=== PATIENT | male | born 1945 | race Caucasian/White ===

== ENCOUNTER 2017-03-02 10:48 | Outpatient (CLI) | payer MEDICARE ==
[~2017-03-02] VITALS: Ht 175.3 cm; Wt 89.4 kg
[~2017-03-02 10:48] MED LIST: APIX5TAB PO; ASCO500T20 PO; ASP81TEC PO; ATOR40TA PO; ATOR80TA PO; CHOL200018 PO; CHOLESTEROL MED PO; CLOP75TA PO; CYAN10007 PO; DRON400T2 PO; ENAL2.5T PO; ENAL5TAB PO; ENLP10T PO; HC A30CR RC; HYDR-3816 PO; LIDO15CR6 TP; LOSA100T7 PO; LOVA20TA2 PO; LYSI500T13 PO; MULT1TAB5 PO; OMG1KC PO; PNT40TEC PO; PRAS10TA6 PO; atorvastatin; benicar
[2017-03-02 11:18] VITALS: BP 148/78
== END 2017-03-02 11:35 | disposition home or self-care (01) ==
LOC: PREOP 10:48
PROVIDERS: ATTEND Orthopaedic Surgery
DX: Z01.818 Encounter for other preprocedural examination (principal); Z11.2 Encounter for screening for other bacterial diseases; M23.200 Derangement of unspecified lateral meniscus due to old tear or injury, right knee
CPT/HCPCS: 87081

== ENCOUNTER 2017-03-07 09:42 | Day surgery (SDC) | payer MEDICARE ==
--- NOTE | 2017-03-01 06:31 | HISTORY AND PHYSICAL ---
DATE OF SERVICE: This will be for outpatient surgery on 03/07/2017 for right knee arthroscopy. HISTORY OF PRESENT ILLNESS: The patient is a 72-year-old gentleman with complaints of right knee pain. He reports swelling on the medial aspect of his knee with associated pain. He reports difficulty with arising from a seated position. He reports pain with twisting and kneeling. He reports this has been progressive in nature. REVIEW OF SYSTEMS: No chest pain, no shortness of breath. No dysuria. PAST MEDICAL HISTORY: Hypertension, heart disease, atrial fibrillation, prostate cancer. PAST SURGICAL HISTORY: Coronary stent, left carpal tunnel, brow lift, cataract excision. FAMILY HISTORY: Noncontributory. PRIMARY CARE PHYSICIAN: Dr. Damon. MEDICATIONS: Lipitor, enalapril, amlodipine, aspirin, losartan, fish oil, vitamin B12, vitamin D, hydrocodone, Bactrim. ALLERGIES: To LIDOCAINE and MSG. SOCIAL HISTORY: The patient denies alcohol and tobacco use. PHYSICAL EXAMINATION: GENERAL: The patient is well developed, well nourished, no acute distress. HEENT: Normocephalic, atraumatic. Pupils were equal, round, reactive to light. Oropharynx is clear. NECK: Supple. No lymphadenopathy. LUNGS: Clear to auscultation bilaterally. HEART: Regular rate and rhythm. ABDOMEN: Soft, nontender, nondistended. EXTREMITIES: The right knee demonstrates a moderate effusion. He is markedly tender along his medial joint line. Has pain kneeling with Marie's. He has a slight effusion. Range of motion is 0/0/135. He is ligamentously stable in all planes. He ambulates with an antalgic gait. IMPRESSION: Right knee medial meniscal tear. PLAN: Right knee arthroscopy, partial meniscectomy. The risks, benefits, options, and ramifications and recovery were discussed at length with the patient. He understands, wished to proceed. Job ID: [id number] DocumentID: [id number] Dictated Date: 02/27/2017 16:17:25 Social Sciences Research Scientist Date: 02/27/2017 16:46:38 Dictated By: CHAYA WOODSON MD
[~2017-03-07] VITALS: Ht 175.3 cm; Wt 89.4 kg
[2017-03-07] MEDS ORDERED: ceFAZolin 1 GM/NS 50 ML IVPB IV ONE ×2 (10:00)
[2017-03-07] MEDS ORDERED: CATHETER FLUSH 10 ML SYR IV PRN (10:00)
[2017-03-07] MEDS ORDERED: morphine PF (DURAMORPH) 10 MG/10 ML AMP ONE (10:02)
[2017-03-07] MEDS ORDERED: BUPIVACAINE 0.25% 30 ML (SENSORCAINE) VIAL ONE (10:02)
--- NOTE | 2017-03-07 10:13 | Progress Note-Pre Operative ---
Pre-Operative Progress Note H&P Reviewed The H&P was reviewed, patient examined and no changes noted. 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
--- NOTE | 2017-03-07 10:15 | Progress Note-Post Operative ---
Post-Operative Progess Note Surgeon (s)/Concrete Layer (s) Surgeon CHAYA WOODSON MD Concrete Layer: Hao Cameron Pre-Operative Diagnosis right knee medial meniscal tear and chondromalacia Post-Operative Diagnosis right knee medial and lateral meniscal tears and chondromalacia of the medial and lateral tibial plateaus and patella Procedure & Operative Findings Date of Procedure 03/07/17 Procedure Performed/Findings right knee arthroscopic partial medial and lateral meniscectomies and chondroplasty of the medial and lateral tibial plateaus and patella Anesthesia Type GETA Estimated Blood Loss Estimated blood loss (mL): minimal Specimens/Packing Specimens Removed none Packing: none CHAYA WOODSON MD Mar 07, 2017 10:15
[2017-03-07] MEDS ORDERED: LACTATED RINGERS 1,000 ML IV PRN ×2 (10:18→10:40)
[2017-03-07] MEDS ORDERED: SEVOFLURANE (ULTANE) 15 ML INHAL SOLN ONE ×2 (10:25→11:43)
[2017-03-07] MEDS ORDERED: HURRICAINE EXT TUBE (BENZOCAINE) ONE (10:25)
[2017-03-07] MEDS ORDERED: proPOfol 200 MG/20 ML (DIPRIVAN) VIAL IV ONE (10:25)
[2017-03-07] MEDS ORDERED: DEXAMETHASONE PF 10 MG/ML (DECADRON) VIAL ONE (10:25)
[2017-03-07] MEDS ORDERED: LACTATED RINGERS 1,000 ML IV ONE (10:25)
[2017-03-07] MEDS ORDERED: LIDOCAINE PF 2% 5 ML (XYLOCAINE) VIAL ONE (10:25)
[2017-03-07] MEDS ORDERED: fentaNYL INJECTION 100 MCG/2 ML AMP ONE (10:26)
[2017-03-07] MEDS ORDERED: MIDAZOLAM 2 MG/2 ML (VERSED) VIAL ONE (10:26)
[2017-03-07] MEDS ORDERED: FAMOTIDINE 20MG/2ML IV (PEPCID) ONE (10:27)
[2017-03-07] MEDS ORDERED: ATRACURIUM 50 MG/5 ML (TRACRIUM) IV ONE (10:27)
[2017-03-07 10:29] VITALS: BP 179/87
[2017-03-07] MEDS ORDERED: FAMOTIDINE 20MG/2ML IV (PEPCID) IV ONE (10:45)
[2017-03-07] MEDS ORDERED: HYDROcodone/APAP 7.5 MG/325 MG (LORTAB, LORCET PLUS) TABLET PO PRN (11:00)
[2017-03-07] MEDS ORDERED: morphine INJ 10 MG/ML 1ML (SYR OR VIAL) IVP PRN (12:00)
[2017-03-07 12:45] VITALS: BP 175/106
[2017-03-07] MEDS ORDERED: HYDR-3816 PO (13:08)
[2017-03-07 13:15] VITALS: BP 179/86
--- NOTE | 2017-03-07 13:42 | Physical Therapy Ortho Eval ---
PT Orthopedic Evaluation Type of Surgery Knee Scope RLE Prior Level of Function Current Living Status: Spouse Established Durable Medical Eq: Crutches Subjective Subjective Patient in bed pre tx, agrees to PT, has 2/10 pain, states that he has had this before and is familiar with his crutches. Entry Into Home: Stairs With Railing Steps Into Home: 2 Objective Objective right knee flexion 90 degrees, extension +3 degrees Motor Control Motor Control: Motor Control WNL Strength NT Transfer Transfers (B, C, W/C) (FIM): 4 Gait Gait Assistive Device: Crutches Weight Bearing Restriction: Weight Bearing/Tolerated Location Restriction: R LE Gait (FIM): 4 Distance: 150' Gait Level of Assist: 4 Summary/Comments Patient unsteady immediately after standing, did not follow directions on how to use his crutches and had to be reminded to slow down and put weight though his right leg. Patient also went up and down 1 step using his crutches with CGA. Treatment Rendered Treatment: Therapeutic Exercises, Gait Train, Step Train Exercise Instruction: Quad Sets, Heel Slides, Ankle Pumps Assessment/Goals Goal Time Frame: 1 Visit Plan Treatment Plan: Discharge PT/Family Agrees to Plan: Yes Time Time In: 1315 Time Out: 1335 Total Billed Treatment Time: 20 Billed Treatment Time 1 visit EVL 20' PT/OT Therapy GCodes Therapy Functional Limitation: Physical Therapy Test(s)/Tool used to determine: Level of Assistance Scale Functional Limitation-Current Charge Code: MOBCUR Modifier: CI Functional Limitation-Goal Charge Code: MOBGOAL Modifier: CI Functional Limitation-D/C Charge Codes: MOBDC Modifier: CI ARUN PASCUAL PT Mar 07, 2017 13:41
[2017-03-07 13:45] VITALS: BP 176/92
--- NOTE | 2017-03-07 15:50 | OPERATIVE REPORT ---
DATE OF SERVICE: 03/07/2017 PREOPERATIVE DIAGNOSES: 1. Right knee medial meniscal tear. 2. Right knee chondromalacia of the patella. POSTOPERATIVE DIAGNOSES: 1. Right knee medial meniscal tear. 2. Right knee chondromalacia of the patella. 3. Right knee lateral meniscal tear. 4. Right knee chondromalacia of the medial tibial plateau. 5. Right knee chondromalacia of the lateral tibial plateau. PROCEDURES: 1. Right knee arthroscopic partial medial meniscectomy. 2. Right knee arthroscopic partial lateral meniscectomy. 3. Right knee arthroscopic chondroplasty of the medial tibial plateau. 4. Right knee arthroscopic chondroplasty of the lateral tibial plateau. 5. Right knee arthroscopic chondroplasty of the patella. SURGEON: Pietro Woodson MD CERTIFIED OPTICIAN: Hao Hair, who assisted throughout the procedure and closed the incisions. ANESTHESIA: General endotracheal by Dr. Louis. TOURNIQUET TIME: Not applicable. ESTIMATED BLOOD LOSS: Minimal. DRAINS: None. COMPLICATIONS: None. POSTOPERATIVE PLAN: Routine arthroscopy protocol. The patient was transported to the recovery room awake and in stable condition. STATEMENT OF ORAL CONSENT: The patient is a 72-year-old gentleman with complaints of right medial and anterior knee pain. He was tender along his medial joint line and had pain medially with Marie's. He had patellofemoral crepitus noted as well with large effusion and due to functional impairment and failure to improve with conservative measures, the patient would like to proceed with surgical intervention. Examination under anesthesia revealed range of motion of 0/0/130. Negative Gucci. Negative anterior and posterior drawer. No varus or valgus laxity and negative pivot shift. ARTHROSCOPIC FINDINGS: The patella demonstrated grade 2 chondral flap centrally in a 10 x 10 area. The trochlea demonstrated no gross chondral abnormalities. The medial and lateral gutters were clear. The medial compartment demonstrated grade 4 chondral loss in a 3 x 3 area at the 3 o'clock position. There was a complex degenerative tear of the posterior horn of the medial meniscus involving approximately one-half of the posterior horn. In addition, there were grade 2 to 3 chondral flaps over the central portion of the tibial plateau in a 10 x 10 area. The ACL and PCL were intact. The lateral compartment demonstrated a radial tear of the posterior horn/body junction involving approximately 20% of the junction. In addition, there were grade 2 chondral flaps over the central portion of the tibial plateau in a 10 x 10 area. PROCEDURE IN DETAIL: After risks and benefits of procedure were discussed and questions were answered, an informed consent was signed and placed on the chart. The patient was then transported to the operating room. After adequate levels of general endotracheal anesthetic were obtained, a timeout was called confirming the operative site. An examination under anesthesia was performed with the above findings noted. The right lower extremity was prepped and draped in the usual sterile fashion. Then, 60 mL of fluid was used to insufflate the joint and a standard inferolateral portal was placed through arthroscope and under direct visualization, an inferomedial portal was created. The menisci and cruciates were carefully probed with the above findings noted. The unstable chondral flaps on the patella were debrided with a shaver back to stable edges. The scope was then redirected into the lateral compartment where the unstable chondral flaps and the lateral tibial plateau were debrided with a shaver back to a stable edge and the lateral meniscus tear was debrided with a shave back to a stable edge. This was carefully probed with no further tearing or instability noted. The scope was then redirected into the medial compartment where the unstable chondral flaps on the medial tibial plateau were debrided with a shaver back to a stable edge and the posterior horn of the medial meniscus was debrided with the body and the shaver removing approximately one-half of the posterior horn. This was carefully probed with no further tearing or instability noted. The knee was copiously irrigated and the portal sites were closed with 4-0 nylon in subcuticular fashion. The knee was injected with Duramorph. The portal sites were infiltrated with plain Marcaine. A soft dressing was applied, and the patient was transferred to the recovery room awake and in stable condition. Job ID: [id number] DocumentID: [id number] Dictated Date: 03/07/2017 11:51:23 Expressive Music Therapist Date: 03/07/2017 13:33:55 Dictated By: PIETRO WOODSON MD
== END 2017-03-07 14:08 | disposition home or self-care (01) ==
LOC: SDC 09:42
PROVIDERS: ATTEND Orthopaedic Surgery
DX: M23.8X1 Other internal derangements of right knee (principal); M22.41 Chondromalacia patellae, right knee; I10 Essential (primary) hypertension; I25.10 Atherosclerotic heart disease of native coronary artery without angina pectoris; E78.5 Hyperlipidemia, unspecified; Z95.5 Presence of coronary angioplasty implant and graft; I48.91 Unspecified atrial fibrillation; Z85.46 Personal history of malignant neoplasm of prostate; Z79.899 Other long term (current) drug therapy

== ENCOUNTER 2017-03-10 08:46 | Emergency (ER) | payer MEDICARE ==
[~2017-03-10] VITALS: Ht 175.3 cm; Wt 89.4 kg
[2017-03-10 09:45] VITALS: BP 0/0
== END 2017-03-10 09:45 | disposition left against medical advice (07) ==
LOC: EDUNIT# 08:46 → ER 08:48
DX: L23.7 Allergic contact dermatitis due to plants, except food (principal); Z53.21 Procedure and treatment not carried out due to patient leaving prior to being seen by health care provider
CPT/HCPCS: 99282

== ENCOUNTER → 2017-12-26 | Outpatient (CLI) | payer MEDICARE ==
[~2017-12-26] MED LIST changes: +HYDR-34 PO; -HYDR-3816 PO
== END ==
LOC: CARD 12:42
PROVIDERS: ATTEND Physician Assistant
DX: I10 Essential (primary) hypertension (principal); E78.5 Hyperlipidemia, unspecified; I48.0 Paroxysmal atrial fibrillation; I08.1 Rheumatic disorders of both mitral and tricuspid valves
CPT/HCPCS: 93306

== ENCOUNTER → 2018-01-14 | Outpatient (CLI) | payer MEDICARE | LOC: CARD 10:02 | PROVIDERS: ATTEND Internal Medicine Cardiovascular Disease | DX: I10 Essential (primary) hypertension (principal); E78.5 Hyperlipidemia, unspecified; I48.0 Paroxysmal atrial fibrillation | CPT/HCPCS: 93351 ==

== ENCOUNTER 2018-08-16 08:13 | Outpatient (RCR) | payer MEDICARE ==
[2018-08-20] MEDS ORDERED: TAMS0.4C2 PO (16:34)
[2018-08-20] MEDS ORDERED: ASPI-586 PO (16:34)
[2018-08-20] MEDS ORDERED: LOSA100T8 PO (16:34)
[2018-08-20] MEDS ORDERED: OMEG-164 PO (16:34)
[2018-08-20] MEDS ORDERED: PSYL660P17 PO (16:34)
[2018-08-20] MEDS ORDERED: HYDR25TA4 PO (16:34)
[2018-08-20] MEDS ORDERED: MULT-35 PO (16:34)
[2018-08-20] MEDS ORDERED: ATOR40TA70 PO (16:34)
[2018-08-20] MEDS ORDERED: CYCL5TAB PO (16:34)
[2018-08-20] MEDS ORDERED: PANT40TA3 PO (16:34)
[2018-08-20] MEDS ORDERED: DOCU100T7 PO (16:34)
[2018-08-21] MEDS ORDERED: ACHD5005 PO (10:54)
== END 2018-08-29 09:18 | disposition home or self-care (01) ==
LOC: ONC 08:13
PROVIDERS: ATTEND Internal Medicine Hematology & Oncology
DX: C7A.8 Other malignant neuroendocrine tumors (principal); C61 Malignant neoplasm of prostate; I10 Essential (primary) hypertension; E78.5 Hyperlipidemia, unspecified; I25.10 Atherosclerotic heart disease of native coronary artery without angina pectoris; N40.0 Benign prostatic hyperplasia without lower urinary tract symptoms; Z79.82 Long term (current) use of aspirin; Z79.899 Other long term (current) drug therapy; Z95.5 Presence of coronary angioplasty implant and graft
CPT/HCPCS: 99214

== ENCOUNTER 2018-08-20 15:22 | Outpatient (CLI) | payer MEDICARE ==
[~2018-08-20] VITALS: Ht 175.3 cm; Wt 89.4 kg
[~2018-08-20 15:22] MED LIST changes: -ACHD5005 PO; -ASPI-586 PO; -ATOR40TA70 PO; -CYCL5TAB PO; -DOCU100T7 PO; -HYDR25TA4 PO; -LOSA100T8 PO; -MULT-35 PO; -OMEG-164 PO; -PANT40TA3 PO; -PSYL660P17 PO; -TAMS0.4C2 PO
[2018-08-20] MEDS ORDERED: PSYL660P17 PO (16:34)
[2018-08-20] MEDS ORDERED: ATOR40TA70 PO (16:34)
[2018-08-20] MEDS ORDERED: LOSA100T8 PO (16:34)
[2018-08-20] MEDS ORDERED: TAMS0.4C2 PO (16:34)
[2018-08-20] MEDS ORDERED: HYDR25TA4 PO (16:34)
[2018-08-20] MEDS ORDERED: ASPI-586 PO (16:34)
[2018-08-20] MEDS ORDERED: DOCU100T7 PO (16:34)
[2018-08-20] MEDS ORDERED: PANT40TA3 PO (16:34)
[2018-08-20] MEDS ORDERED: OMEG-164 PO (16:34)
[2018-08-20] MEDS ORDERED: CYCL5TAB PO (16:34)
[2018-08-20] MEDS ORDERED: MULT-35 PO (16:34)
[2018-08-21] MEDS ORDERED: ACHD5005 PO (10:54)
== END 2018-08-20 16:27 | disposition home or self-care (01) ==
LOC: PREOP 15:22
PROVIDERS: ATTEND Surgery
DX: Z01.818 Encounter for other preprocedural examination (principal)

== ENCOUNTER → 2018-08-20 | Outpatient (CLI) | payer MEDICARE ==
[~2018-08-20] MED LIST changes: +ACHD5005 PO; +ASPI-586 PO; +ATOR40TA70 PO; +CYCL5TAB PO; +DOCU100T7 PO; +HYDR25TA4 PO; +LOSA100T8 PO; +MULT-35 PO; +OMEG-164 PO; +PANT40TA3 PO; +PSYL660P17 PO; +TAMS0.4C2 PO
--- NOTE | 2018-08-21 13:31 | Diagnostic Imaging Report ---
PET/CT. INDICATION: Prostatic hypertrophy. EXAMINATION: After intravenous administration of 11.7 mCi of F18-FDG, a series of overlapping emission and transmission PET images was obtained. In the coronal, transaxial and sagittal planes, the area imaged extended from the skull base through the upper thighs. FINDINGS: There are no prior PET/CT examinations or recent cross-sectional imaging studies available for comparison. Reportedly, the patient did undergo a CT-guided biopsy of a buttock mass approximately two weeks ago. The results of that biopsy are not known to me. On this exam, there is a 5.5 x 6.3 cm soft tissue mass in the region of the prostate gland. I am not certain if this is related to the prostate gland itself or to a sharita mass adjacent to the prostate gland. At any rate, this mass is hypermetabolic with a maximum SUV of 10.9. There is also another sizable 4.2 x 5.3 cm hypermetabolic mass of the same SUV value along the right pelvic sidewall. There are other sharita masses as well. One lies along the anterior aspect of the urinary bladder on the right and measures approximately 2.5 x 4.5 cm. The other is in the left inguinal region and measures 1.8 x 2.6 cm. These masses also show increased hypermetabolic activity, consistent with neoplastic disease. There is another mass measuring 2.4 x 2.4 cm in the left iliac chain. This has a maximum SUV of 10.0. Just cephalad and medial to this, there is an even larger mass measuring 2.1 x 3.9 cm. There are also a few small hypermetabolic periaortic nodes. These have SUV values in the 5-6 range and should also be considered neoplastic. There is no other hypermetabolic activity involving the soft tissues to suggest malignancy. However, there are numerous areas of increased metabolic activity throughout the osseous structures. This includes hypermetabolic foci in the left pedicle of C3, the right pedicle of C4, the vertebral body of what appears to be T3, T8, L1, L3, L4, L5, the right ilium and the right sacrum, and the superior and inferior inferior pubic rami on the left. All of these findings should be considered secondary to metastatic disease until proven otherwise. The CT images fail to show any sign of an acute abnormality. IMPRESSION: 1. The prostate gland is hypermetabolic and enlarged and there are multiple hypermetabolic nodes within the pelvis. There also appears to be extensive metastatic skeletal disease. 2. There is no acute abnormality identified on the CT images. Dictated by: Dictated on workstation # [id number]
== END ==
LOC: RAD 08:56
PROVIDERS: ATTEND Internal Medicine Hematology & Oncology
DX: N40.0 Benign prostatic hyperplasia without lower urinary tract symptoms (principal)

== ENCOUNTER 2018-08-21 08:33 | Day surgery (SDC) | payer MEDICARE, OTHER ==
[~2018-08-21] VITALS: Ht 175.3 cm; Wt 84.1 kg
[~2018-08-21 08:33] MED LIST changes: +ASPI-586 PO; +ATOR40TA70 PO; +CYCL5TAB PO; +DOCU100T7 PO; +HYDR25TA4 PO; +LOSA100T8 PO; +MULT-35 PO; +OMEG-164 PO; +PANT40TA3 PO; +PSYL660P17 PO; +TAMS0.4C2 PO
[2018-08-21] MEDS ORDERED: LACTATED RINGERS 1,000 ML IV PRN (08:49)
[2018-08-21] MEDS ORDERED: ceFAZolin 2 GM IV Premixed 50 ML ONE (09:17)
[2018-08-21 09:22] VITALS: BP 142/77
[2018-08-21] MEDS ORDERED: ceFAZolin 2 GM IV Premixed 50 ML IV ONE (09:30)
[2018-08-21] MEDS ORDERED: FAMOTIDINE 20MG/2ML IV (PEPCID) IV ONE (09:30)
[2018-08-21] MEDS ORDERED: HEParin (CENTRAL IV FLUSH) 500 UNIT/5 ML SYR ONE (09:35)
[2018-08-21] MEDS ORDERED: LIDOCAINE/EPI 1%-1:100,000 (XYLOCAINE) 20ML ONE (09:35)
[2018-08-21] MEDS ORDERED: 0.9% SODIUM CHLORIDE PF INJ 20 ML VIAL ONE (09:39)
[2018-08-21] MEDS ORDERED: fentaNYL INJECTION 100 MCG/2 ML AMP ONE (10:22)
[2018-08-21] MEDS ORDERED: PROPOFOL INJECTION 50 ML IV ONE (10:23)
[2018-08-21] MEDS ORDERED: MIDAZOLAM 2 MG/2 ML (VERSED) VIAL ONE (10:24)
[2018-08-21] MEDS ORDERED: ACHD5005 PO (10:54)
--- NOTE | 2018-08-21 10:54 | Progress Note-Post Operative ---
Post-Operative Progess Note Surgeon (s)/Bank Vault Clerk (s) Surgeon COLEMAN GUEVARA DO Bank Vault Clerk: Yue Rao MSIII Pre-Operative Diagnosis SMALL CELL NEUROENDOCRINE CA, Venous Insufficiency Post-Operative Diagnosis same Procedure & Operative Findings Date of Procedure 08/21/18 Procedure Performed/Findings Jose-cath insertion R SC vein, R ACW Anesthesia Type IV Sedation Estimated Blood Loss Estimated blood loss (mL): scant Specimens/Packing Specimens Removed none COLEMAN GUEVARA DO Aug 21, 2018 10:54
--- NOTE | 2018-08-21 10:56 | Discharge Inst-Surgical ---
Discharge Inst-Surgical Depart Medication/Instructions New, Converted or Re-Newed RX: RX Given to Pt/Family Patient Instructions Follow up Appt: Make appointment for 1 week. [phone] Instructions: May shower in 24 hours, no tub bath or soaking. Use incentive spirometer at home as directed. No Smoking Skin/Wound Care: May remove bandages in am. You need to leave the Dermabond on over incision it will fall off on its own. Symptoms to Report: Appetite Changes, Extremity Discoloration, Numbness/Tingling, Swelling Increased , Bleeding Excessive, Eyesight Changes, Pain Increased, Urine Color Change, Constipation(Persistent), Fever over 101 degree F, Pain/Pressure in chest, Urinating Difficulty, Cough Up/Vomit Blood, Heart Beat Irreg/Pounding, Pain/ Pressure in jaw, Cramps in feet or legs, Lightheadedness, Pain/Pressure in shoulder, Diarrhea(Persistent), Memory Changes Suddenly, Questions/Concerns, Weight gain consecutive days, Dizziness/Fainting, Nausea/Vomiting, Shortness of Breath, Weight gain over 2 pounds If questions or concerns contact your physician Or seek help at emergency department. Activity Activity as Tolerated: Yes Activity Instructions: Avoid Stress to Incision Driving Instructions: No Driving/Refer to Diet Discharge Diet: No Restrictions Diet After 24 Hours: Clear Liquid if Nauseous If Any Problems/Questions/Issu: Contact Your Physician, Go to Emergency Room Skin/Wound Care Infection Signs and Symptoms: Increased Redness, Foul Odor of Wound, Increased Drainage, Skin Itchy or Has a Rash, Increased Swelling, Temperature Above 101 F Stitches/William/Dermabond Dis: Dermabond Ice Pack: Ice On and Off Site (as needed for pain) CLOEMAN GUEVARA DO Aug 21, 2018 10:56
[2018-08-21] MEDS ORDERED: ONDANSETRON 4 MG/2 ML (SDV) Z0FRAN IVP PRN (11:00)
[2018-08-21 11:30] VITALS: BP 149/75
[2018-08-21 12:00] VITALS: BP 160/78
[2018-08-21 12:23] VITALS: BP 160/78
--- NOTE | 2018-08-21 15:34 | Diagnostic Imaging Report ---
EXAM: Fluoroscopy INDICATION: Power port insertion FINDINGS: Fluoroscopic assistance was provided for Dr. Eubanks during this Insertion procedure. 4 seconds of fluoroscopy time was utilized. 2 spot films of the left thorax were received from the OR. There is a power port device in place with the tip overlying the mid portions of the superior vena cava. IMPRESSION: Fluoroscopic assistance was provided for Dr. Eubanks. Dictated by: Dictated on workstation # [id number]
--- NOTE | 2018-08-21 21:22 | OPERATIVE REPORT ---
DATE OF SERVICE: PREOPERATIVE DIAGNOSES: 1. Venous insufficiency. 2. Metastatic neuroendocrine cancer. POSTOPERATIVE DIAGNOSES: 1. Venous insufficiency. 2. Metastatic neuroendocrine cancer. PROCEDURE: Insertion of Port-A-Cath left subclavian vein and left anterior chest wall. SURGEON: Josh Eubanks DO SCOW CAPTAIN: Yue Rao, medical student 3. SPECIMENS: None. BLOOD LOSS: Scant. FLUIDS: Per anesthesia. POSTOPERATIVE CONDITION: Stable. INDICATION FOR PROCEDURE: The patient is a 73-year-old male who unfortunately has metastatic neuroendocrine cancer and had some recent insufficiency and needs a Port-A-Cath placed for long-term IV access for chemotherapy. FINDINGS: The patient had a Port-A-Cath placed left anterior chest wall and left subclavian vein with fluoroscopy guidance. PROCEDURE NOTE: After informed consent was obtained, the patient was brought to the operating room, placed on the table in supine position, sterilely prepped and draped in normal fashion, placed slightly Trendelenburg and then used a local lidocaine to infiltrate the left anterior chest wall, left subclavian vein. Once infiltrated the skin with local, then using an 18 gauge fine needle advanced with negative inspiration and cannulated the subclavian vein on the first attempt, removed the syringe, placed a guidewire using Seldinger technique, it went in easily. Checked fluoroscopy, it was in the superior vena cava. Removed the needle, then made a stab incision along the guidewire with a #11 blade. I then made an incision in the left anterior chest wall with a #11 blade to create a pocket for the port. Bovie electrocautery was used to obtain hemostasis and dissect up the area as well as blunt dissection. Then, over the guidewire placed the dilator using Seldinger technique, checked with fluoroscopy, it was in good position, removed the inner portion of the dilator sheath as well as the guidewire and then placed the catheter down the dilator sheath. I had previously tunneled this from the stab incision along the guidewire to the pocket created for the port. Once the catheter was then down, then removed the external portion of the dilator sheath and then checked position of the catheter with fluoroscopy, it was in good position, removed the inner wire of the catheter and then attached the catheter to the port and placed a locking mechanism, then accessed the port with a Lakhani needle. Good flash of blood then easily flushed with saline, then aspirated and flushed with heparin. Placed the port into the pocket previously created, sutured down with 3-0 Prolene suture and then closed the incision closing the subcutaneous tissue with 3-0 Vicryl 2 interrupted sutures then used and closed the skin with 4-0 undyed Monocryl, 1 subcuticular stitch at the stab incision and then 3 subcuticular stitches at the incision in the left anterior chest wall. Area was then cleaned and dried. I got an extra fluoroscopy shot and the port looked good; no kinking of the catheter and at this point, the patient then had Dermabond placed, Band-Aids and then transferred to recovery room in stable condition. Sponges, instruments and needle counts correct at the end of the case. Job ID: [id number] DocumentID: [id number] Dictated Date: 08/21/2018 12:19:43 Forklift Mechanic Date: 08/21/2018 21:22:03 Dictated By: DO VIVIANA GUAMAN
== END 2018-08-21 12:22 | disposition home or self-care (01) ==
LOC: SDC 08:33
PROVIDERS: ATTEND Surgery
DX: I87.2 Venous insufficiency (chronic) (peripheral) (principal); C7A.8 Other malignant neuroendocrine tumors; C61 Malignant neoplasm of prostate; E78.5 Hyperlipidemia, unspecified; I10 Essential (primary) hypertension; I65.29 Occlusion and stenosis of unspecified carotid artery; I25.2 Old myocardial infarction; I48.0 Paroxysmal atrial fibrillation; I25.10 Atherosclerotic heart disease of native coronary artery without angina pectoris; K21.9 Gastro-esophageal reflux disease without esophagitis; Z95.5 Presence of coronary angioplasty implant and graft; Z11.2 Encounter for screening for other bacterial diseases
CPT/HCPCS: 87081

== ENCOUNTER 2018-09-23 11:12 | Emergency (ER) | payer MEDICARE, OTHER ==
[~2018-09-23] VITALS: Ht 176.5 cm; Wt 86.2 kg
[~2018-09-23 11:12] MED LIST changes: +ACHD5005 PO
--- OUTSIDE RECORDS SUMMARY | 2018-09-23 11:19 | XMS REPORT | Continuity of Care Document ---
Author Author [facility] Organization [facility] Address Unknown Phone Unavailable Allergies Active Description Code Type Severity Reaction Onset Reported/Identified Relationship to Patient Clinical Status Yes No Known Drug Allergies [id number] Drug Allergy Unknown N/A 08/20/2018 Yes Beta-Blockers (Beta-Adrenergic Bloc [id number] Drug Allergy Unknown N/A 11/2017 Medications There is no data. Problems Date Dx Coded Attending Type Code Diagnosis Diagnosed By WILLIAM MILLER MD Ot C61 MALIGNANT NEOPLASM OF PROSTATE WILLIAM MILLER MD Ot C7A.8 OTHER MALIGNANT NEUROENDOCRINE TUMORS WILLIAM MILLER MD Ot E78.5 HYPERLIPIDEMIA, UNSPECIFIED WILLIAM MILLER MD Ot I10 ESSENTIAL (PRIMARY) HYPERTENSION WILLIAM MILLER MD Ot I25.10 ATHSCL HEART DISEASE OF [place] CORONARY WILLIAM MILLER MD Ot N40.0 BENIGN PROSTATIC HYPERPLASIA WITHOUT LOW WILLIAM MILLER MD Ot Z79.82 MANAGER FINANCIAL REPORTING (CURRENT) USE OF ASPIRIN WILLIAM MILLER MD Ot Z79.899 OTHER LONGTERM (CURRENT) DRUG THERAPY WILLIAM MILLER MD Ot 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 ANGIOPLASTY IMPLANT 07/01/2011 Ot 272.4 07/01/2011 Ot 401.9 07/01/2011 Ot 410.41 07/01/2011 Ot 414.01 07/01/2011 Ot 425.4 07/01/2011 Ot 427.89 07/31/2011 Ot 185 07/31/2011 Ot 272.0 07/31/2011 Ot 401.9 07/31/2011 Ot V58.69 09/01/2011 Ot 410.92 09/01/2011 Ot V57.89 11/06/2011 Ot 272.4 HYPERLIPIDEMIA NEC/NOS 11/06/2011 Ot 401.9 HYPERTENSION NOS 11/06/2011 Ot 412 OLD MYOCARDIAL INFARCT 11/06/2011 Ot 414.01 CORONARY ATHEROSCLEROSIS OF [place] CORON 11/06/2011 Ot 427.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 NODE DYSFUNCT 11/06/2011 Ot 794.30 ABN CARDIOVASC STUDY NOS 11/06/2011 Ot V10.46 HX- PROSTATIC MALIGNANCY 11/06/2011 Ot V45.82 PERCUTANEOUS TRANSLUM CORON ANGIOPLASTY 01/13/2013 Ot 785.1 PALPITATIONS 03/15/2013 JUAN CARDENAS MD Ot 185 MALIGN NEOPL PROSTATE 03/15/2013 JUAN CARDENAS MD Ot 272.4 HYPERLIPIDEMIA NEC/NOS 03/15/2013 JUAN CARDENAS MD Ot 401.9 HYPERTENSION NOS 03/15/2013 JUAN CARDENAS MD Ot 412 OLD MYOCARDIAL INFARCT 03/15/2013 JUAN CARDENAS MD Ot 414.01 CORONARY ATHEROSCLEROSIS OF [place] CORON 03/15/2013 JUAN CARDENAS MD Ot 427.31 ATRIAL FIBRILLATION 03/15/2013 JUAN CARDENAS MD Ot 427.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 NODE DYSFUNCT 03/15/2013 JUAN CARDENAS MD Ot V45.82 PERCUTANEOUS TRANSLUM CORON ANGIOPLASTY 10/15/2014 Ot 185 10/15/2014 Ot 574.20 10/15/2014 Ot V81.5 10/15/2014 Ot 185 10/15/2014 Ot 272.0 10/15/2014 Ot 401.9 10/15/2014 Ot V58.69 10/15/2014 Ot 401.9 10/15/2014 Ot 414.00 10/15/2014 Ot 785.1 11/25/2014 JUAN CARDENAS MD Ot 272.4 11/25/2014 JUAN CARDENAS MD Ot 397.0 11/25/2014 JUAN CARDENAS MD Ot 401.9 11/25/2014 JUAN CARDENAS MD Ot 424.0 11/25/2014 JUAN CARDENAS MD Ot 427.31 11/25/2014 JUAN CARDENAS MD Ot 433.10 03/12/2015 TENZIN CARTY MD Ot 719.04 11/26/2015 Ot E78.5 11/26/2015 Ot I10 11/26/2015 Ot I25.10 11/26/2015 Ot I48.0 11/26/2015 Ot N28.9 11/26/2015 Ot R07.89 11/26/2015 Ot Z79.899 11/26/2015 Ot Z98.61 01/18/2016 Ot E78.5 HYPERLIPIDEMIA, UNSPECIFIED 01/18/2016 Ot I10 ESSENTIAL ( PRIMARY) HYPERTENSION 01/18/2016 Ot I25.10 ATHSCL HEART DISEASE OF [place] CORONARY 01/18/2016 Ot I48.0 PAROXYSMAL ATRIAL FIBRILLATION 01/18/2016 Ot N28.9 DISORDER OF KIDNEY AND URETER, UNSPECIFI 01/18/2016 Ot R07.89 OTHER CHEST PAIN 01/18/2016 Ot Z79.899 OTHER LONGTERM (CURRENT) DRUG THERAPY 01/18/2016 Ot Z98.61 CORONARY ANGIOPLASTY STATUS 04/20/2016 CHINTAN SIMONS, CHAYA Cosme Ot M23.204 DERANG OF UNSP MEDIAL MENISCUS DUE TO OL 04/20/2016 CHAYA WOODSON MD Ot Z01.818 ENCOUNTER FOR OTHER PREPROCEDURAL EXAMIN 04/20/2016 CHAYA WOODSON MD Ot Z11.2 ENCOUNTER FOR SCREENING FOR OTHER BACTER 04/21/2016 CHAYA WOODSON MD Ot M23.204 DERANG OF UNSP MEDIAL MENISCUS DUE TO OL 04/21/2016 CHAYA WOODSON MD Ot Z01.818 ENCOUNTER FOR OTHER PREPROCEDURAL EXAMIN 04/21/2016 CHAYA WOODSON MD Ot Z11.2 ENCOUNTER FOR SCREENING FOR OTHER BACTER 04/26/2016 CHAYA WOODSON MD Ot C61 MALIGNANT NEOPLASM OF PROSTATE 04/26/2016 CHAYA WOODSON MD Ot I10 ESSENTIAL (PRIMARY) HYPERTENSION 04/26/2016 CHAYA WOODSON MD Ot I48.91 UNSPECIFIED ATRIAL FIBRILLATION 04/26/2016 CHAYA WOODSON MD Ot M22.42 CHONDROMALACIA PATELLAE, LEFT KNEE 04/26/2016 CHAYA WOODSON MD Ot M23.8X2 OTHER INTERNAL DERANGEMENTS OF LEFT KNEE 04/27/2016 CHAYA WOODSON MD Ot C61 MALIGNANT NEOPLASM OF PROSTATE 04/27/2016 CHAYA WOODSON MD Ot I10 ESSENTIAL (PRIMARY) HYPERTENSION 04/27/2016 CHAYA WOODSON MD Ot I48.91 UNSPECIFIED ATRIAL FIBRILLATION 04/27/2016 CHAYA WOODSON MD Ot M22.42 CHONDROMALACIA PATELLAE, LEFT KNEE 04/27/2016 CHINTAN SIMONS, CHAYA Cosme Ot M23.8X2 OTHER INTERNAL DERANGEMENTS OF LEFT KNEE 05/23/2016 Ot 185 MALIGN NEOPL PROSTATE 05/23/2016 Ot 272.0 PURE HYPERCHOLESTEROLEM 05/23/2016 Ot 401.9 HYPERTENSION NOS 05/23/2016 Ot V58.69 OTH MED,LT, CURRENT USE 05/23/2016 Ot 785.1 PALPITATIONS 05/23/2016 DILMA CUNNINGHAM Ot K59.00 CONSTIPATION, UNSPECIFIED 05/23/2016 DILMA CUNNINGHAM Ot K64.9 UNSPECIFIED HEMORRHOIDS 05/23/2016 DILMA CUNNINGHAM Ot K80.20 CALCULUS OF GALLBLADDER W/O CHOLECYSTITI 05/24/2016 DILMA CUNNINGHAM Ot K59.00 CONSTIPATION, UNSPECIFIED 05/24/2016 DILMA CUNNINGHAM Ot K64.9 UNSPECIFIED HEMORRHOIDS 05/24/2016 DILMA CUNNINGHAM Ot K80.20 CALCULUS OF GALLBLADDER W/O CHOLECYSTITI 06/01/2016 DILMA CUNNINGHAM Ot K59.00 CONSTIPATION, UNSPECIFIED 06/01/2016 DILMA CUNNINGHAM Ot K64.9 UNSPECIFIED HEMORRHOIDS 06/01/2016 DILMA CUNNINGHAM Ot K80.20 CALCULUS OF GALLBLADDER W/O CHOLECYSTITI 03/02/2017 Ot 785.1 PALPITATIONS 03/02/2017 CHAYA WOODSON MD Ot M23.200 DERANG OF UNSP LAT MENSC DUE TO OLD TEAR 03/02/2017 CHAYA WOODSON MD Ot Z01.818 ENCOUNTER FOR OTHER PREPROCEDURAL EXAMIN 03/02/2017 CHAYA WOODSON MD Ot Z11.2 ENCOUNTER FOR SCREENING FOR OTHER BACTER 03/07/2017 CHAYA WOODSON MD Ot E78.5 HYPERLIPIDEMIA, UNSPECIFIED 03/07/2017 CHAYA WOODSON MD Ot I10 ESSENTIAL (PRIMARY) HYPERTENSION 03/07/2017 CHAYA WOODSON MD, Ot I25.10 ATHSCL HEART DISEASE OF [place] CORONARY 03/07/2017 CHAYA WOODSON MD Ot I48.91 UNSPECIFIED ATRIAL FIBRILLATION 03/07/2017 CHAYA WOODSON MD Ot M22.41 CHONDROMALACIA PATELLAE, RIGHT KNEE 03/07/2017 CHAYA WOODSON MD Ot M23.8X1 OTHER INTERNAL DERANGEMENTS OF RIGHT KNE 03/07/2017 CHAYA WOODSON MD Ot Z79.899 OTHER MANAGER FINANCIAL REPORTING (CURRENT) DRUG THERAPY 03/07/2017 CHAYA WOODSON MD Ot Z85.46 PERSONAL HISTORY OF MALIGNANT NEOPLASM O 03/07/2017 CHAYA WOODSON MD Ot 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 ANGIOPLASTY IMPLANT 03/08/2017 CHAYA WOODSON MD Ot E78.5 HYPERLIPIDEMIA, UNSPECIFIED 03/08/2017 CHAYA WOODSON MD Ot I10 ESSENTIAL (PRIMARY) HYPERTENSION 03/08/2017 CHAYA WOODSON MD P Ot I25.10 ATHSCL HEART DISEASE OF [place] CORONARY 03/08/2017 CHAYA WOODSON MD Ot I48.91 UNSPECIFIED ATRIAL FIBRILLATION 03/08/2017 CHAYA WOODSON MD Ot M22.41 CHONDROMALACIA PATELLAE, RIGHT KNEE 03/08/2017 CHAYA WOODSON MD Ot M23.8X1 OTHER INTERNAL DERANGEMENTS OF RIGHT KNE 03/08/2017 CHAYA WOODSON MD Ot Z79.899 OTHER LONGTERM (CURRENT) DRUG THERAPY 03/08/2017 CHAYA WOODSON MD Ot Z85.46 PERSONAL HISTORY OF MALIGNANT NEOPLASM O 03/08/2017 CHAYA WOODSON MD Ot 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 ANGIOPLASTY IMPLANT 03/08/2017 CHAYA WOODSON MD Ot E78.5 HYPERLIPIDEMIA, UNSPECIFIED 03/08/2017 CHAYA WOODSON MD Ot I10 ESSENTIAL (PRIMARY) HYPERTENSION 03/08/2017 CHAYA WOODSON MD Ot I25.10 ATHSCL HEART DISEASE OF [place] CORONARY 03/08/2017 CHAYA WOODSON MD Ot I48.91 UNSPECIFIED ATRIAL FIBRILLATION 03/08/2017 CHAYA WOODSON MD Ot M22.41 CHONDROMALACIA PATELLAE, RIGHT KNEE 03/08/2017 CHAYA WOODSON MD Ot M23.8X1 OTHER INTERNAL DERANGEMENTS OF RIGHT KNE 03/08/2017 CHAYA WOODSON MD Ot Z79.899 OTHER LONGTERM (CURRENT) DRUG THERAPY 03/08/2017 CHAYA WOODSON MD Ot Z85.46 PERSONAL HISTORY OF MALIGNANT NEOPLASM O 03/08/2017 CHAYA WOODSON MD, Ot 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 ANGIOPLASTY IMPLANT 03/09/2017 CHAYA WOODSON MD, Ot E78.5 HYPERLIPIDEMIA, UNSPECIFIED 03/09/2017 CHAYA WOODSON MD, Ot I10 ESSENTIAL (PRIMARY) HYPERTENSION 03/09/2017 CHAYA WOODSON MD, Ot I25.10 ATHSCL HEART DISEASE OF [place] CORONARY 03/09/2017 CHAYA WOODSON MD, Ot I48.91 UNSPECIFIED ATRIAL FIBRILLATION 03/09/2017 CHAYA WOODSON MD, Ot M22.41 CHONDROMALACIA PATELLAE, RIGHT KNEE 03/09/2017 CHAYA WOODSON MD, Ot M23.8X1 OTHER INTERNAL DERANGEMENTS OF RIGHT KNE 03/09/2017 CHAYA WOODSON MD, Ot Z79.899 OTHER LONGTERM (CURRENT) DRUG THERAPY 03/09/2017 CHAYA WOODSON MD, Ot Z85.46 PERSONAL HISTORY OF MALIGNANT NEOPLASM O 03/09/2017 CHAYA WOODSON MD, Ot 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 ANGIOPLASTY IMPLANT 03/10/2017 Ot 401.9 HYPERTENSION NOS 03/10/2017 Ot 414.00 CORON ATHEROSCLER NOS TYPE VESSEL, NATIV 03/10/2017 Ot 785.1 PALPITATIONS 03/10/2017 JUAN CARDENAS MD Ot 272.4 HYPERLIPIDEMIA NEC/NOS 03/10/2017 JUAN CARDENAS MD Ot 397.0 TRICUSPID VALVE DISEASE 03/10/2017 JUAN CARDENAS MD Ot 401.9 HYPERTENSION NOS 03/10/2017 JUAN CARDENAS MD Ot 424.0 MITRAL VALVE DISORDER 03/10/2017 JUAN CARDENAS MD Ot 427.31 ATRIAL FIBRILLATION 03/10/2017 JUAN CARDENAS MD Ot 433.10 CAROTID ARTERY OCCLUSION W O CEREBRAL IN 03/10/2017 TENZIN CARTY MD Ot 719.04 JOINT EFFUSION-HAND 03/10/2017 Ot E78.5 HYPERLIPIDEMIA, UNSPECIFIED 03/10/2017 Ot I10 ESSENTIAL ( PRIMARY) HYPERTENSION 03/10/2017 Ot I25.10 ATHSCL HEART DISEASE OF [place] CORONARY 03/10/2017 Ot I48.0 PAROXYSMAL ATRIAL FIBRILLATION 03/10/2017 Ot N28.9 DISORDER OF KIDNEY AND URETER, UNSPECIFI 03/10/2017 Ot R07.89 OTHER CHEST PAIN 03/10/2017 Ot Z79.899 OTHER LONGTERM (CURRENT) DRUG THERAPY 03/10/2017 Ot Z98.61 CORONARY ANGIOPLASTY STATUS 03/10/2017 NATALIA POSADA MD Ot L23.7 ALLERGIC CONTACT DERMATITIS DUE TO PLANT 03/10/2017 NATALIA POSADA MD Ot Z53.21 PROC/TRTMT NOT CRD OUT D/T PT LV BEF SEE 03/12/2017 NATALIA POSADA MD Ot L23.7 ALLERGIC CONTACT DERMATITIS DUE TO PLANT 03/12/2017 NATALIA POSADA MD Ot Z53.21 PROC/TRTMT NOT CRD OUT D/T PT LV BEF SEE 12/27/2017 JP VEGA Ot E78.5 HYPERLIPIDEMIA, UNSPECIFIED 12/27/2017 JP VEGA Ot I08.1 RHEUMATIC DISORDERS OF BOTH MITRAL AND T 12/27/2017 JP VEGA Ot I10 ESSENTIAL (PRIMARY) HYPERTENSION 12/27/2017 JP VEGA Ot I48.0 PAROXYSMAL ATRIAL FIBRILLATION 01/01/2018 JP VEGA Ot E78.5 HYPERLIPIDEMIA, UNSPECIFIED 01/01/2018 JP VEGA Ot I08.1 RHEUMATIC DISORDERS OF BOTH MITRAL AND T 01/01/2018 JP VEGA Ot I10 ESSENTIAL (PRIMARY) HYPERTENSION 01/01/2018 JP VEGA Ot I48.0 PAROXYSMAL ATRIAL FIBRILLATION 01/11/2018 Ot 785.1 PALPITATIONS 01/11/2018 JUAN CARDENAS MD Ot 272.4 HYPERLIPIDEMIA NEC/NOS 01/11/2018 JUAN CARDENAS MD Ot 397.0 TRICUSPID VALVE DISEASE 01/11/2018 JUAN CARDENAS MD Ot 401.9 HYPERTENSION NOS 01/11/2018 JUAN CARDENAS MD Ot 424.0 MITRAL VALVE DISORDER 01/11/2018 JUAN CARDENAS MD Ot 427.31 ATRIAL FIBRILLATION 01/11/2018 JUAN CARDENAS MD Ot 433.10 CAROTID ARTERY OCCLUSION W O CEREBRAL IN 01/11/2018 TENZIN CARTY MD Ot 719.04 JOINT EFFUSION-HAND 01/11/2018 Ot E78.5 HYPERLIPIDEMIA, UNSPECIFIED 01/11/2018 Ot I10 ESSENTIAL ( PRIMARY) HYPERTENSION 01/11/2018 Ot I25.10 ATHSCL HEART DISEASE OF [place] CORONARY 01/11/2018 Ot I48.0 PAROXYSMAL ATRIAL FIBRILLATION 01/11/2018 Ot N28.9 DISORDER OF KIDNEY AND URETER, UNSPECIFI 01/11/2018 Ot R07.89 OTHER CHEST PAIN 01/11/2018 Ot Z79.899 OTHER LONGTERM (CURRENT) DRUG THERAPY 01/11/2018 Ot Z98.61 CORONARY ANGIOPLASTY STATUS 01/11/2018 JP VEGA Ot E78.5 HYPERLIPIDEMIA, UNSPECIFIED 01/11/2018 JP VEGA Ot I08.1 RHEUMATIC DISORDERS OF BOTH MITRAL AND T 01/11/2018 JP VEGA Ot I10 ESSENTIAL (PRIMARY) HYPERTENSION 01/11/2018 JP VEGA Ot I48.0 PAROXYSMAL ATRIAL FIBRILLATION 01/11/2018 Ot 785.1 PALPITATIONS 01/11/2018 THERESA SIMONS, JUAN Villanueva Ot 272.4 HYPERLIPIDEMIA NEC/NOS 01/11/2018 THERESA SIMONS, JUAN Villanueva Ot 397.0 TRICUSPID VALVE DISEASE 01/11/2018 THERESA SIMONS, JUAN Villanueva Ot 401.9 HYPERTENSION NOS 01/11/2018 THERESA SIMONS, JUAN Villanueva Ot 424.0 MITRAL VALVE DISORDER 01/11/2018 THERESA SIMONS, JUAN Villanueva Ot 427.31 ATRIAL FIBRILLATION 01/11/2018 JUAN CARDENAS MD Ot 433.10 CAROTID ARTERY OCCLUSION W O CEREBRAL IN 01/11/2018 MACHELLE SIMONS, TENZIN Villanueva Ot 719.04 JOINT EFFUSION-HAND 01/11/2018 Ot E78.5 HYPERLIPIDEMIA, UNSPECIFIED 01/11/2018 Ot I10 ESSENTIAL ( PRIMARY) HYPERTENSION 01/11/2018 Ot I25.10 ATHSCL HEART DISEASE OF [place] CORONARY 01/11/2018 Ot I48.0 PAROXYSMAL ATRIAL FIBRILLATION 01/11/2018 Ot N28.9 DISORDER OF KIDNEY AND URETER, UNSPECIFI 01/11/2018 Ot R07.89 OTHER CHEST PAIN 01/11/2018 Ot Z79.899 OTHER LONGTERM (CURRENT) DRUG THERAPY 01/11/2018 Ot Z98.61 CORONARY ANGIOPLASTY STATUS 01/11/2018 JP VEGA Ot E78.5 HYPERLIPIDEMIA, UNSPECIFIED 01/11/2018 RAJAT CHAVIS JP K Ot I08.1 RHEUMATIC DISORDERS OF BOTH MITRAL AND T 01/11/2018 RAJAT CHAVIS JP K Ot I10 ESSENTIAL (PRIMARY) HYPERTENSION 01/11/2018 RAJAT CHAVIS, JP K Ot I48.0 PAROXYSMAL ATRIAL FIBRILLATION 01/15/2018 JUAN CARDENAS MD Ot E78.5 HYPERLIPIDEMIA, UNSPECIFIED 01/15/2018 JUAN CARDENAS MD Ot I10 ESSENTIAL (PRIMARY) HYPERTENSION 01/15/2018 JUAN CARDENAS MD Ot I48.0 PAROXYSMAL ATRIAL FIBRILLATION 01/18/2018 RAJAT CHAVIS JP K Ot E78.5 HYPERLIPIDEMIA, UNSPECIFIED 01/18/2018 RAJAT CHAVIS JP K Ot I08.1 RHEUMATIC DISORDERS OF BOTH MITRAL AND T 01/18/2018 JP VEGA Ot I10 ESSENTIAL (PRIMARY) HYPERTENSION 01/18/2018 RAJAT CHAVIS JP K Ot I48.0 PAROXYSMAL ATRIAL FIBRILLATION 02/05/2018 JUAN CARDENAS MD Ot E78.5 HYPERLIPIDEMIA, UNSPECIFIED 02/05/2018 JUAN CARDENAS MD Ot I10 ESSENTIAL (PRIMARY) HYPERTENSION 02/05/2018 JUAN CARDENAS MD Ot I48.0 PAROXYSMAL ATRIAL FIBRILLATION 08/15/2018 JUAN CARDENAS MD Ot 272.4 HYPERLIPIDEMIA NEC/NOS 08/15/2018 JUAN CARDENAS MD Ot 397.0 TRICUSPID VALVE DISEASE 08/15/2018 JUAN CARDENAS MD Ot 401.9 HYPERTENSION NOS 08/15/2018 JUAN CARDENAS MD Ot 424.0 MITRAL VALVE DISORDER 08/15/2018 JUAN CARDENAS MD Ot 427.31 ATRIAL FIBRILLATION 08/15/2018 JUAN CARDENAS MD Ot 433.10 CAROTID ARTERY OCCLUSION W O CEREBRAL IN 08/15/2018 TENZIN CARTY MD Ot 719.04 JOINT EFFUSION-HAND 08/15/2018 Ot E78.5 HYPERLIPIDEMIA, UNSPECIFIED 08/15/2018 Ot I10 ESSENTIAL ( PRIMARY) HYPERTENSION 08/15/2018 Ot I25.10 ATHSCL HEART DISEASE OF [place] CORONARY 08/15/2018 Ot I48.0 PAROXYSMAL ATRIAL FIBRILLATION 08/15/2018 Ot N28.9 DISORDER OF KIDNEY AND URETER, UNSPECIFI 08/15/2018 Ot R07.89 OTHER CHEST PAIN 08/15/2018 Ot Z79.899 OTHER MANAGER FINANCIAL REPORTING (CURRENT) DRUG THERAPY 08/15/2018 Ot Z98.61 CORONARY ANGIOPLASTY STATUS 08/15/2018 JP VEGA Ot E78.5 HYPERLIPIDEMIA, UNSPECIFIED 08/15/2018 JP VEGA Ot I08.1 RHEUMATIC DISORDERS OF BOTH MITRAL AND T 08/15/2018 JP VEGA Ot I10 ESSENTIAL (PRIMARY) HYPERTENSION 08/15/2018 JP VEGA Ot I48.0 PAROXYSMAL ATRIAL FIBRILLATION 08/15/2018 JUAN CARDENAS MD Ot E78.5 HYPERLIPIDEMIA, UNSPECIFIED 08/15/2018 JUAN CARDENAS MD Ot I10 ESSENTIAL (PRIMARY) HYPERTENSION 08/15/2018 JUAN CARDENAS MD Ot I48.0 PAROXYSMAL ATRIAL FIBRILLATION 08/20/2018 COLEMAN GUEVARA DO Ot Z01.818 ENCOUNTER FOR OTHER PREPROCEDURAL EXAMIN 08/21/2018 COLEMAN GUEVARA DO Ot Z01.818 ENCOUNTER FOR OTHER PREPROCEDURAL EXAMIN 08/21/2018 COLEMAN GUEVARA DO Ot C61 MALIGNANT NEOPLASM OF PROSTATE 08/21/2018 COLEMAN GUEVARA DO Ot C7A.8 OTHER MALIGNANT NEUROENDOCRINE TUMORS 08/21/2018 COLEMAN GUEVARA DO Ot E78.5 HYPERLIPIDEMIA, UNSPECIFIED 08/21/2018 COLEMAN GUEVARA DO Ot I10 ESSENTIAL (PRIMARY) HYPERTENSION 08/21/2018 COLEMAN GUEVARA DO Ot I25.10 ATHSCL HEART DISEASE OF [place] CORONARY 08/21/2018 COLEMAN GUEVARA DO Ot I25.2 OLD MYOCARDIAL INFARCTION 08/21/2018 COLEMAN GUEVARA DO Ot I48.0 PAROXYSMAL ATRIAL FIBRILLATION 08/21/2018 COLEMAN GUEVARA DO Ot I65.29 OCCLUSION AND STENOSIS OF UNSPECIFIED CA 08/21/2018 COLEMAN GUEVARA DO Ot I87.2 VENOUS INSUFFICIENCY (CHRONIC) (PERIPHER 08/21/2018 COLEMAN GUEVARA DO Ot K21.9 GASTRO-ESOPHAGEAL REFLUX DISEASE WITHOUT 08/21/2018 COLEMAN GUEVARA DO Ot Z11.2 ENCOUNTER FOR SCREENING FOR OTHER BACTER 08/21/2018 ISMAEL DO, COLEMAN B Ot 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 ANGIOPLASTY IMPLANT 08/23/2018 WILLIAM MILLER MD Ot N40.0 BENIGN PROSTATIC HYPERPLASIA WITHOUT LOW 08/27/2018 DELRAYSA DO, COLEMAN B Ot C61 MALIGNANT NEOPLASM OF PROSTATE 08/27/2018 BOBMAN DO, COLEMAN B Ot C7A.8 OTHER MALIGNANT NEUROENDOCRINE TUMORS 08/27/2018 BOBMAN DO, COLEMAN B Ot E78.5 HYPERLIPIDEMIA, UNSPECIFIED 08/27/2018 DELMAN DO, COLEMAN B Ot I10 ESSENTIAL (PRIMARY) HYPERTENSION 08/27/2018 BOBMAN DO, COLEMAN B Ot I25.10 ATHSCL HEART DISEASE OF [place] CORONARY 08/27/2018 DELMAN DO, COLEMAN B Ot I25.2 OLD MYOCARDIAL INFARCTION 08/27/2018 ISMAEL DO, COLEMAN B Ot I48.0 PAROXYSMAL ATRIAL FIBRILLATION 08/27/2018 DELMAN DO, COLEMAN B Ot I65.29 OCCLUSION AND STENOSIS OF UNSPECIFIED CA 08/27/2018 BOBRAYSA DO, COLEMAN B Ot I87.2 VENOUS INSUFFICIENCY (CHRONIC) (PERIPHER 08/27/2018 ISMAEL DO, COLEMAN B Ot K21.9 GASTRO-ESOPHAGEAL REFLUX DISEASE WITHOUT 08/27/2018 DELMAN DO, COLEMAN B Ot Z11.2 ENCOUNTER FOR SCREENING FOR OTHER BACTER 08/27/2018 ISMAEL DO, COLEMAN B Ot 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 ANGIOPLASTY IMPLANT 08/27/2018 ISMAEL DO, COLEMAN B Ot C61 MALIGNANT NEOPLASM OF PROSTATE 08/27/2018 BOBRAYSA DO, COLEMAN B Ot C7A.8 OTHER MALIGNANT NEUROENDOCRINE TUMORS 08/27/2018 BOBRAYSA DO, COLEMAN B Ot E78.5 HYPERLIPIDEMIA, UNSPECIFIED 08/27/2018 BOBMAN DO, COLEMAN B Ot I10 ESSENTIAL (PRIMARY) HYPERTENSION 08/27/2018 DELMAN DO, COLEMAN B Ot I25.10 ATHSCL HEART DISEASE OF [place] CORONARY 08/27/2018 BOBRAYSA DO, COLEMAN B Ot I25.2 OLD MYOCARDIAL INFARCTION 08/27/2018 DELMAN DO, COLEMAN B Ot I48.0 PAROXYSMAL ATRIAL FIBRILLATION 08/27/2018 DELMAN DO, COLEMAN B Ot I65.29 OCCLUSION AND STENOSIS OF UNSPECIFIED CA 08/27/2018 BOBMAN DO, COLEMAN B Ot I87.2 VENOUS INSUFFICIENCY (CHRONIC) (PERIPHER 08/27/2018 GLENN GUEVARA DOIC B Ot K21.9 GASTRO-ESOPHAGEAL REFLUX DISEASE WITHOUT 08/27/2018 GLENN GUEVARA DOIC B Ot Z11.2 ENCOUNTER FOR SCREENING FOR OTHER BACTER 08/27/2018 COLEMAN GUEVARA DO B Ot 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 ANGIOPLASTY IMPLANT 08/28/2018 WILLIAM MILLER MD Ot C61 MALIGNANT NEOPLASM OF PROSTATE 08/28/2018 WILLIAM MILLER MD Ot C7A.8 OTHER MALIGNANT NEUROENDOCRINE TUMORS 08/28/2018 WILLIAM MILLER MD Ot E78.5 HYPERLIPIDEMIA, UNSPECIFIED 08/28/2018 WILLIAM MILLER MD Ot I10 ESSENTIAL (PRIMARY) HYPERTENSION 08/28/2018 WILLIAM MILLER MD Ot I25.10 ATHSCL HEART DISEASE OF [place] CORONARY 08/28/2018 WILLIAM MILLER MD Ot N40.0 BENIGN PROSTATIC HYPERPLASIA WITHOUT LOW 08/28/2018 WILLIAM MILLER MD Ot Z79.82 MANAGER FINANCIAL REPORTING (CURRENT) USE OF ASPIRIN 08/28/2018 WILLIAM MILLER MD Ot Z79.899 OTHER MANAGER FINANCIAL REPORTING (CURRENT) DRUG THERAPY 08/28/2018 WILLIAM MILLER MD Ot 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 ANGIOPLASTY IMPLANT 08/28/2018 WILLIAM MILLER MD Ot N40.0 BENIGN PROSTATIC HYPERPLASIA WITHOUT LOW 08/29/2018 COLEMAN GUEVARA DO Ot C61 MALIGNANT NEOPLASM OF PROSTATE 08/29/2018 GLENN GUEVARA DOIC B Ot C7A.8 OTHER MALIGNANT NEUROENDOCRINE TUMORS 08/29/2018 GLENN GUEVARA DOIC B Ot E78.5 HYPERLIPIDEMIA, UNSPECIFIED 08/29/2018 GLENN GUEVARA DOIC B Ot I10 ESSENTIAL (PRIMARY) HYPERTENSION 08/29/2018 GLENN GUEVARA DOIC B Ot I25.10 ATHSCL HEART DISEASE OF [place] CORONARY 08/29/2018 GLENN GUEVARA DOIC B Ot I25.2 OLD MYOCARDIAL INFARCTION 08/29/2018 GLENN GUEVARA DOIC B Ot I48.0 PAROXYSMAL ATRIAL FIBRILLATION 08/29/2018 GLENN GUEVARA DOIC B Ot I65.29 OCCLUSION AND STENOSIS OF UNSPECIFIED CA 08/29/2018 GLENN GUEVARA DOIC B Ot I87.2 VENOUS INSUFFICIENCY (CHRONIC) (PERIPHER 08/29/2018 COLEMAN GUEVARA DO B Ot K21.9 GASTRO-ESOPHAGEAL REFLUX DISEASE WITHOUT 08/29/2018 GLENN GUEVARA DOIC B Ot Z11.2 ENCOUNTER FOR SCREENING FOR OTHER BACTER 08/29/2018 BOBRAYSA MACKEY COLEMAN B Ot 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 ANGIOPLASTY IMPLANT 08/29/2018 WILLIAM MILLER MD Ot C61 MALIGNANT NEOPLASM OF PROSTATE 08/29/2018 WILLIAM MILLER MD Ot C7A.8 OTHER MALIGNANT NEUROENDOCRINE TUMORS 08/29/2018 WILLIAM MILLER MD Ot E78.5 HYPERLIPIDEMIA, UNSPECIFIED 08/29/2018 WILLIAM MILLER MD Ot I10 ESSENTIAL (PRIMARY) HYPERTENSION 08/29/2018 WILLIAM MILLER MD Ot I25.10 ATHSCL HEART DISEASE OF [place] CORONARY 08/29/2018 WILLIAM MILLER MD Ot N40.0 BENIGN PROSTATIC HYPERPLASIA WITHOUT LOW 08/29/2018 WILLIAM MILLER MD Ot Z79.82 MANAGER FINANCIAL REPORTING (CURRENT) USE OF ASPIRIN 08/29/2018 WILLIAM MILLER MD Ot Z79.899 OTHER LONGTERM (CURRENT) DRUG THERAPY 08/29/2018 WILLIAM MILLER MD Ot 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 ANGIOPLASTY IMPLANT 08/29/2018 WILLIAM MILLER MD Ot C61 MALIGNANT NEOPLASM OF PROSTATE 08/29/2018 WILLIAM MILLER MD Ot C7A.8 OTHER MALIGNANT NEUROENDOCRINE TUMORS 08/29/2018 WILLIAM MILLER MD Ot E78.5 HYPERLIPIDEMIA, UNSPECIFIED 08/29/2018 WILLIAM MILLER MD Ot I10 ESSENTIAL (PRIMARY) HYPERTENSION 08/29/2018 WILLIAM MILLER MD Ot I25.10 ATHSCL HEART DISEASE OF [place] CORONARY 08/29/2018 WILLIAM MILLER MD Ot N40.0 BENIGN PROSTATIC HYPERPLASIA WITHOUT LOW 08/29/2018 WILLIAM MILLER MD Ot Z79.82 MANAGER FINANCIAL REPORTING (CURRENT) USE OF ASPIRIN 08/29/2018 WILLIAM MILLER MD Ot Z79.899 OTHER LONGTERM (CURRENT) DRUG THERAPY 08/29/2018 WILLIAM MILLER MD Ot 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 ANGIOPLASTY IMPLANT 08/30/2018 WILLIAM MILLER MD Ot C61 MALIGNANT NEOPLASM OF PROSTATE 08/30/2018 WILLIAM MILLER MD Ot C7A.8 OTHER MALIGNANT NEUROENDOCRINE TUMORS 08/30/2018 WILLIAM MILLER MD Ot E78.5 HYPERLIPIDEMIA, UNSPECIFIED 08/30/2018 WILLIAM MILLER MD Ot I10 ESSENTIAL (PRIMARY) HYPERTENSION 08/30/2018 JONATHAN MILLER MDNER Ot I25.10 ATHSCL HEART DISEASE OF [place] CORONARY 08/30/2018 WILLIAM MILLER MD Ot N40.0 BENIGN PROSTATIC HYPERPLASIA WITHOUT LOW 08/30/2018 WILLIAM MILLER MD Ot Z79.82 MANAGER FINANCIAL REPORTING (CURRENT) USE OF ASPIRIN 08/30/2018 WILLIAM MILLER MD Ot Z79.899 OTHER LONGTERM (CURRENT) DRUG THERAPY 08/30/2018 WILLIAM MILLER MD Ot 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 ANGIOPLASTY IMPLANT 09/02/2018 WILLIAM MILLER MD Ot C61 MALIGNANT NEOPLASM OF PROSTATE 09/02/2018 WILLIAM MILLER MD Ot C7A.8 OTHER MALIGNANT NEUROENDOCRINE TUMORS 09/02/2018 WILLIAM MILLER MD Ot E78.5 HYPERLIPIDEMIA, UNSPECIFIED 09/02/2018 WILLIAM MILLER MD Ot I10 ESSENTIAL (PRIMARY) HYPERTENSION 09/02/2018 WILLIAM MILLER MD Ot I25.10 ATHSCL HEART DISEASE OF [place] CORONARY 09/02/2018 WILLIAM MILLER MD Ot N40.0 BENIGN PROSTATIC HYPERPLASIA WITHOUT LOW 09/02/2018 WILLIAM MILLER MD Ot Z79.82 LONGTERM (CURRENT) USE OF ASPIRIN 09/02/2018 WILLIAM MILLER MD Ot Z79.899 OTHER LONGTERM (CURRENT) DRUG THERAPY 09/02/2018 WILLIAM MILLER MD Ot 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 ANGIOPLASTY IMPLANT 09/13/2018 WILLIAM MILLER MD Ot N40.0 BENIGN PROSTATIC HYPERPLASIA WITHOUT LOW 09/14/2018 WILLIAM MILLER MD, Ot N40.0 BENIGN PROSTATIC HYPERPLASIA WITHOUT LOW Procedures There is no data. Results Test Result Range Methicillin resistant Staphylococcus aureus (MRSA) screening culture - 10:45 Methicillin resistant Staphylococcus aureus (MRSA) screening culture NEG NRG Methicillin resistant Staphylococcus aureus (MRSA) screening culture - 08:42 Methicillin resistant Staphylococcus aureus (MRSA) screening culture NEG NRG Encounters ACCT No. Visit Date/Time Discharge Status Pt. Type Provider Facility Loc./Unit Complaint [id number] 09/18/2018 09:25:00 09/18/2018 23:59:59 CLS Outpatient WILLIAM MILLER MD [facility] ONC [id number] 08/16/2018 08:13:00 08/29/2018 09:18:00 DIS Outpatient WILLIAM MILLER MD [facility] ONC [id number] 08/21/2018 08:33:00 08/21/2018 12:22:00 DIS Outpatient COLEMAN GUEVARA DO [facility] SMALL NEUROENDOCRINE CANCER [id number] 08/20/2018 08:56:00 08/20/2018 23:59:59 CLS Outpatient WILLIAM MILLER MD [facility] RAD BENIGN PROSTATIC HYPERTROPHY [id number] 08/20/2018 15:22:00 08/20/2018 16:27:00 DIS Outpatient COLEMAN GUEVARA DO [facility] PREOP SMALL NEUROENDOCRINE CANCER [id number] 01/14/2018 10:02:00 01/14/2018 23:59:59 CLS Outpatient JUAN CARDENAS MD [facility] 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 [id number] 12/26/2017 12:42:00 12/26/2017 23:59:59 CLS Outpatient JP VEGA [facility] 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 [id number] 03/10/2017 08:48:00 03/10/2017 09:45:00 DIS Emergency NATALIA POSADA MD [facility] ER POSS POISON VERONA [id number] 03/07/2017 09:42:00 03/07/2017 14:08:00 DIS Outpatient CHAYA WOODSON MD [facility] DERANGEMENT OTHER MED MENISCUS R/T OLD TEAR/INJURY [id number] 03/02/2017 10:48:00 03/02/2017 11:35:00 DIS Outpatient CHAYA WOODSON MD [facility] PREOP RIGHT KNEE SCOPE [id number] 05/23/2016 14:15:00 05/23/2016 16:50:00 DIS Emergency DILMA CUNNINGHAM [facility] [facility] ER CONSTIPATION ABD PAIN [id number] 04/26/2016 11:42:00 04/26/2016 16:30:00 DIS Outpatient CHAYA WOODSON MD [facility] LEFT KNEE TORN MEDIAL MENISCUS [id number] 04/20/2016 11:52:00 04/20/2016 12:45:00 DIS Outpatient CHAYA WOODSON MD [facility] PREOP LEFT KNEE TORN MEDIAL MENISCUS [id number] 02/08/2015 10:55:00 02/08/2015 23:59:59 CLS Outpatient TENZIN CARTY MD [facility] RAD POI [id number]/SWOLLEN PIP [id number] 10/15/2014 08:08:00 10/15/2014 23:59:59 CLS Outpatient JUAN CARDENAS MD [facility] CARD DELMY,HTN,HLP,PAF [id number] 03/14/2013 12:33:00 03/15/2013 10:56:00 DIS Inpatient JUAN CARDENAS MD [facility] CSD PAROXYOMAL A FIB [id number] 11/03/2015 09:05:00 Document Registration [id number] 10/15/2014 08:08:00 Document Registration [id number] 01/14/2013 09:00:00 Document Registration [id number] 10/15/2012 08:52:00 Document Registration [id number] 11/06/2011 07:01:00 Document Registration [id number] 11/01/2011 10:52:00 Document Registration [id number] 09/01/2011 11:10:00 Document Registration [id number] 08/01/2011 00:00:00 Document Registration [id number] 06/28/2011 09:16:00 Document Registration [id number] 05/02/2011 13:36:00 Document Registration [id number] 04/11/2011 11:05:00 Document Registration [id number] 02/08/2015 10:57:06 ACT Document Registration
[2018-09-23] MEDS ORDERED: GOLYTELY POWDER 4000 ML BTL PO ONE (12:00)
--- NOTE | 2018-09-23 12:00 | ED GI ---
General Stated Complaint: CANCER PT/NO BM FOR 5 DAYS Source of Information: Patient Exam Limitations: No Limitations History of Present Illness Date Seen by Provider: Sep 23, 2018 Time Seen by Provider: 11:53 Initial Comments With reports of constipation and no bowel movement for 5 days. 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 He started his first round of chemotherapy earlier this month. He chronically has troubles with constipation. He denies any nausea vomiting or abdominal pains but "just feels full". He wants to have a bowel movement before [place] tomorrow so that he can eat with his family. He states that he's had good luck with the medication given before colonoscopies which she states is a powder, presumably polyethylene glycol Timing/Duration: 1-2 Days Severity/Quality: Moderate Associated Symptoms: No Nausea/Vomiting Allergies and Home Medications Allergies Coded Allergies: Beta-Blockers (Beta-Adrenergic Bloc (Verified Allergy, Unknown, 09/02/18) Home Medications Aspirin 81 Mg Tablet.dr, 81 MG PO DAILY, (Reported) Atorvastatin Calcium 40 Mg Tablet, 40 MG PO DAILY, (Reported) Cyclobenzaprine HCl 5 Mg Tablet, 5 MG PO TID, (Reported) Docusate Sodium 100 Mg Tablet, 100 MG PO DAILY, (Reported) Hydrochlorothiazide 25 Mg Tablet, 25 MG PO DAILY, (Reported) Hydrocodone Bit/Acetaminophen 1 Tab Tab, 1 TAB PO Q6H PRN for PAIN-MODERATE Prescribed by: COLEMAN GUEVARA on 08/21/18 1054 Losartan Potassium 100 Mg Tablet, 100 MG PO DAILY, (Reported) Multivitamin 1 Each Tablet, 1 EACH PO DAILY, (Reported) [place]-3/Dha/Epa/Fish Oil 1 Each Capsule, 1 EACH PO DAILY, (Reported) Pantoprazole Sodium 40 Mg Tablet.dr, 40 MG PO DAILY, (Reported) Psyllium Husk 660 Gm Powder, 660 GM PO DAILY, (Reported) Tamsulosin HCl 0.4 Mg Cap.er.24h, 0.4 MG PO DAILY, (Reported) Patient Home Medication List Home Medication List Reviewed: Yes Review of Systems Review of Systems Constitutional: see HPI EENTM: No Symptoms Reported Respiratory: No Symptoms Reported Cardiovascular: No Symptoms Reported Gastrointestinal: See HPI; Denies Abdominal Pain; Constipated; Denies Diarrhea , Denies Nausea Genitourinary: No Symptoms Reported Musculoskeletal: no symptoms reported Skin: no symptoms reported Psychiatric/Neurological: No Symptoms Reported Endocrine: No Symptoms Reported Past Eccyldo-Hpmwqq-Rpdbhl Hx Patient Social History Recent Foreign Travel: No Contact w/Someone Who Travel: No Recent Hopitalizations: No Immunizations Up To Date Tetanus Booster (TDap): Unknown Date of Pneumonia Vaccine: Oct 09, 2016 Date of Influenza Vaccine: Jul 15, 2018 Seasonal Allergies Seasonal Allergies: No Past Medical History Surgeries: Yes (EYEBROW TUCK, CYST REMOVED FROM JAWBONE, RIGHT CTR, LEFT KNEE) Eye Surgery Respiratory: No Cardiac: Yes (REVEAL RECORDER PLACED IN 2015, STENT 2010) Coronary Artery Disease, High Cholesterol, Hypertension Neurological: No Reproductive Disorders: No Sexually Transmitted Disease: No HIV/AIDS: No Prostate Problems Gastrointestinal: Yes Gastroesophageal Reflux, Chronic Constipation Musculoskeletal: Yes (ELBOWS AND KNEES) Arthritis Endocrine: No Cataract Loss of Vision: Bilateral Hearing Impairment: Hard of Hearing, Bilateral Hearing Aide Cancer: Yes Prostate Psychosocial: No Integumentary: No Blood Disorders: No Adverse Reaction/Blood Tranf: No (N/A) Family Medical History No Pertinent Family Hx Physical Exam Vital Signs Capillary Refill : Height/Weight/BMI Height: 5'9.00" Weight: 185lbs. 6.0oz. 84.194099xs; 27.4 BMI Method:Stated General Appearance: WD/WN, no apparent distress, other (no distress alert and oriented, briefly became tearful in the room) HEENT: PERRL/EOMI, normal ENT inspection Respiratory: no respiratory distress, no accessory muscle use Gastrointestinal: non tender, soft, abnormal bowel sounds (hypoactive) Extremities: normal range of motion, non-tender Neurologic/Psychiatric: alert, normal mood/affect, oriented x 3 Skin: normal color, warm/dry Progress/Results/Core Measures Results/Orders My Orders Orders - CARIDAD REDDING APRN Peg 3340/Electrolyte Powder (Golytely Po (09/23/18 12:00) Departure Communication (Admissions) 1156-Discussed an injection of relistor but he would rather just do the golytely at this time since it worked so well last time. we will try the golytely and if this fails to resolve his symptoms he agreed to return to ER. Impression Primary Impression: Constipation Qualified Codes: K59.03 - Drug induced constipation Disposition: HOME, SELF-CARE Condition: Against Medical Advice Departure-Patient Inst. Decision time for Depature: 11:58 Referrals: TENZIN CARTY MD (PCP/Family) Primary Care Physician Patient Instructions: Constipation in Adults Add. Discharge Instructions: 1. Return to ER for any concerns. Drink the Golytely until you have a bowel movement. If this fails to improve your constipation return to ER for possibility of injection of Relistor (shot to reverse the effects of pain medication only on the bowels, it does not reverse your pain control). If you developp pain, nausea, vomiting, or fevers, return to ER and labs will need to be done at that point. CARIDAD REDDING APRN Sep 23, 2018 12:00
[2018-09-23 12:27] VITALS: BP 174/94
== END 2018-09-23 12:27 | disposition home or self-care (01) ==
LOC: EDUNIT# 11:12 → ER 11:13
DX: K59.00 Constipation, unspecified (principal); I25.10 Atherosclerotic heart disease of native coronary artery without angina pectoris; E78.00 Pure hypercholesterolemia, unspecified; I10 Essential (primary) hypertension; K21.9 Gastro-esophageal reflux disease without esophagitis; C61 Malignant neoplasm of prostate; Z95.5 Presence of coronary angioplasty implant and graft; Z88.8 Allergy status to other drugs, medicaments and biological substances; Z79.82 Long term (current) use of aspirin; Z92.21 Personal history of antineoplastic chemotherapy
CPT/HCPCS: 99282

== ENCOUNTER → 2018-10-30 | Outpatient (CLI) | payer OTHER, MEDICARE ==
[~2018-10-30] MED LIST changes: +CATHETER FLUSH 10 ML SYR IV PRN; +IOHEXOL 350 MG/ML 100 ML (OMNIPAQUE 350) VIAL IV ONE; +LOSA100T57 PO; -LOSA100T8 PO; +NS 100 ML (IVPB) BAG IV ONE; +RECEIVED CONTRAST (Hold Metformin) IV SCH
--- NOTE | 2018-10-30 10:59 | Diagnostic Imaging Report ---
PROCEDURE: CT chest with contrast, CT abdomen and pelvis with and without contrast. TECHNIQUE: Pre and post intravenous contrast axial imaging of the abdomen and pelvis and post contrast axial imaging of the chest were performed. INDICATION: Small cell carcinoma, prostate carcinoma. FINDINGS: The PET/CT exam performed on 08/20/2018 noted that the prostate gland was enlarged and hypermetabolic. There were also multiple hypermetabolic nodes within the pelvis. On this study, the prostate gland has diminished in size and now measures approximately 4.1 x 5.4 cm as opposed to 5.5 x 6.4 cm on the previous exam. The enlarged pelvic nodes seen previously have essentially resolved. On the prior exam, there was a 4.2 x 5.3 cm node low in the pelvis on the right. This now measures only 1.0 x 1.6 cm. The other adenopathy noted previously has nearly completely, if not completely, resolved. The liver, spleen, pancreas, adrenals, kidneys, aorta and inferior vena cava show no sign of an acute abnormality. There is cholelithiasis but there is no evidence for acute cholecystitis. The urinary bladder is only partially filled and consequently not well evaluated. There is no pelvic mass or free fluid collection. There may be diverticulosis of the sigmoid and descending colon but there is no sign of acute diverticulitis. The stomach is not well-distended and consequently difficult to assess. There is a small hiatal hernia. The images through the thorax show that the heart size is within normal limits. The aorta is not abnormally dilated and there is no sign of dissection. The pulmonary arteries are not fully opacified and consequently difficult to assess. There is no mediastinal or hilar adenopathy. The thyroid gland is generally unremarkable. The lungs are generally clear and well aerated. There is no sign of failure, pneumonia or pleural effusion. There is no parenchymal lung mass. The previous PET/CT exam did note extensive metastatic skeletal disease. In the interval since the previous exam, a new area of mixed density has developed in the vertebral body of L1 on the left. This measures 1.7 x 2.2 cm. There is also a new 1.6 x 1.0 cm area of mixed density along the anterior aspect of the L3 vertebral body. This too should be considered a new neoplastic focus. IMPRESSION: 1. There are mixed results. The prostate gland has decreased in size since the prior exam and the considerable pelvic adenopathy noted on the previous study has essentially resolved. However, there are two new metastatic bony lesions identified within the vertebral bodies of L1 and L3. 2. The overall appearance of the abdomen and pelvis and chest has not changed significantly since the PET/CT exam. No new abnormality has developed. Dictated by: Dictated on workstation # [id number]
== END ==
LOC: RAD 08:53
PROVIDERS: ATTEND Internal Medicine Hematology & Oncology
DX: C61 Malignant neoplasm of prostate (principal); C79.51 Secondary malignant neoplasm of bone
CPT/HCPCS: 71260; 74178

== ENCOUNTER → 2018-11-27 | Outpatient (RCR) | payer MEDICARE, OTHER ==
[2018-08-30 16:13] LABS: BASOPHILS % (AUTO) 0 % (0-10); EOSINOPHILS # (AUTO) 0.2 10^3/uL (0.0-0.3); EOSINOPHILS % (AUTO) 2 % (0-10); HEMATOCRIT 41 % (40-54); HEMOGLOBIN 13.8 G/DL (13.3-17.7); LYMPHOCYTES # (AUTO) 1.3 X 10^3 (1.0-4.0); LYMPHOCYTES % (AUTO) 22 % (12-44); MEAN CORPUSCULAR HEMOGLOBIN 31 PG (25-34); MEAN CORPUSCULAR HGB CONC 34 G/DL (32-36); MEAN CORPUSCULAR VOLUME 92 FL (80-99); MEAN PLATELET VOLUME 9.8 FL (7.4-10.4); MONOCYTES # (AUTO) 0.6 X 10^3 (0.0-1.0); MONOCYTES % (AUTO) 9 % (0-12); NEUTROPHILS # (AUTO) 4.2 X 10^3 (1.8-7.8); NEUTROPHILS % (AUTO) 67 % (42-75); PLATELET COUNT 274 10^3/uL (130-400); RED CELL DISTRIBUTION WIDTH 12.5 % (10.0-14.5); WHITE BLOOD COUNT 6.2 10^3/uL (4.3-11.0)
[2018-08-30 16:42] LABS: ALBUMIN 4.5 GM/DL (3.2-4.5); BILIRUBIN,TOTAL 0.5 MG/DL (0.1-1.0); CALCIUM 10.2 MG/DL (8.5-10.1); CREATININE SERUM 1.57 MG/DL (0.60-1.30); POTASSIUM 3.7 MMOL/L (3.6-5.0); TOTAL PROTEIN 8.3 GM/DL (6.4-8.2)
[2018-09-11 11:00] LABS: BASOPHILS % (AUTO) 0 % (0-10); EOSINOPHILS # (AUTO) 0.1 10^3/uL (0.0-0.3); EOSINOPHILS % (AUTO) 2 % (0-10); HEMATOCRIT 37 % (40-54); HEMOGLOBIN 12.4 G/DL (13.3-17.7); LYMPHOCYTES # (AUTO) 1.2 X 10^3 (1.0-4.0); LYMPHOCYTES % (AUTO) 22 % (12-44); MEAN CORPUSCULAR HEMOGLOBIN 31 PG (25-34); MEAN CORPUSCULAR HGB CONC 33 G/DL (32-36); MEAN CORPUSCULAR VOLUME 92 FL (80-99); MEAN PLATELET VOLUME 10.6 FL (7.4-10.4); MONOCYTES % (AUTO) 0 % (0-12); NEUTROPHILS % (AUTO) 75 % (42-75); PLATELET COUNT 189 10^3/uL (130-400); RED CELL DISTRIBUTION WIDTH 12.2 % (10.0-14.5); WHITE BLOOD COUNT 5.3 10^3/uL (4.3-11.0)
[2018-09-11 11:18] LABS: CALCIUM 9.4 MG/DL (8.5-10.1); CREATININE SERUM 1.39 MG/DL (0.60-1.30); POTASSIUM 4.2 MMOL/L (3.6-5.0)
[2018-09-18 09:46] LABS: BASOPHILS % (AUTO) 2 % (0-10); EOSINOPHILS % (AUTO) 2 % (0-10); HEMATOCRIT 35 % (40-54); HEMOGLOBIN 11.5 G/DL (13.3-17.7); LYMPHOCYTES # (AUTO) 0.5 X 10^3 (1.0-4.0); LYMPHOCYTES % (AUTO) 77 % (12-44); MEAN CORPUSCULAR HEMOGLOBIN 31 PG (25-34); MEAN CORPUSCULAR HGB CONC 33 G/DL (32-36); MEAN CORPUSCULAR VOLUME 94 FL (80-99); MEAN PLATELET VOLUME 10.4 FL (7.4-10.4); MONOCYTES # (AUTO) 0.1 X 10^3 (0.0-1.0); MONOCYTES % (AUTO) 20 % (0-12); NEUTROPHILS % (AUTO) 0 % (42-75); PLATELET COUNT 101 10^3/uL (130-400); RED CELL DISTRIBUTION WIDTH 11.7 % (10.0-14.5)
[2018-09-18 09:54] LABS: WHITE BLOOD COUNT 0.7 10^3/uL (4.3-11.0)
[2018-09-18 10:01] LABS: CALCIUM 9.3 MG/DL (8.5-10.1); CREATININE SERUM 1.33 MG/DL (0.60-1.30); POTASSIUM 4.1 MMOL/L (3.6-5.0)
[2018-09-25 08:37] LABS: BASOPHILS % (AUTO) 0 % (0-10); EOSINOPHILS % (AUTO) 0 % (0-10); HEMATOCRIT 33 % (40-54); LYMPHOCYTES # (AUTO) 1.2 X 10^3 (1.0-4.0); LYMPHOCYTES % (AUTO) 24 % (12-44); MEAN CORPUSCULAR HEMOGLOBIN 31 PG (25-34); MEAN CORPUSCULAR HGB CONC 34 G/DL (32-36); MEAN CORPUSCULAR VOLUME 93 FL (80-99); MEAN PLATELET VOLUME 9.4 FL (7.4-10.4); MONOCYTES # (AUTO) 0.6 X 10^3 (0.0-1.0); MONOCYTES % (AUTO) 13 % (0-12); NEUTROPHILS % (AUTO) 63 % (42-75); PLATELET COUNT 277 10^3/uL (130-400); RED CELL DISTRIBUTION WIDTH 12.3 % (10.0-14.5); WHITE BLOOD COUNT 4.8 10^3/uL (4.3-11.0)
[2018-09-25 09:01] LABS: ALBUMIN 3.9 GM/DL (3.2-4.5); CALCIUM 9.5 MG/DL (8.5-10.1); CREATININE SERUM 1.57 MG/DL (0.60-1.30); MAGNESIUM 2.2 MG/DL (1.8-2.4); TOTAL PROTEIN 7.3 GM/DL (6.4-8.2)
[2018-09-25 09:07] LABS: BILIRUBIN,TOTAL 0.3 MG/DL (0.1-1.0)
[2018-10-02 11:32] LABS: BASOPHILS % (AUTO) 0 % (0-10); EOSINOPHILS % (AUTO) 0 % (0-10); HEMATOCRIT 33 % (40-54); HEMOGLOBIN 10.9 G/DL (13.3-17.7); LYMPHOCYTES # (AUTO) 0.8 X 10^3 (1.0-4.0); LYMPHOCYTES % (AUTO) 21 % (12-44); MEAN CORPUSCULAR HEMOGLOBIN 31 PG (25-34); MEAN CORPUSCULAR HGB CONC 33 G/DL (32-36); MEAN CORPUSCULAR VOLUME 92 FL (80-99); MEAN PLATELET VOLUME 10.2 FL (7.4-10.4); MONOCYTES % (AUTO) 1 % (0-12); NEUTROPHILS # (AUTO) 2.9 X 10^3 (1.8-7.8); NEUTROPHILS % (AUTO) 78 % (42-75); PLATELET COUNT 347 10^3/uL (130-400); RED CELL DISTRIBUTION WIDTH 12.5 % (10.0-14.5); WHITE BLOOD COUNT 3.7 10^3/uL (4.3-11.0)
[2018-10-02 11:49] LABS: CALCIUM 9.2 MG/DL (8.5-10.1); CREATININE SERUM 1.26 MG/DL (0.60-1.30); POTASSIUM 3.9 MMOL/L (3.6-5.0)
[2018-10-09 10:55] LABS: BASOPHILS % (AUTO) 1 % (0-10); EOSINOPHILS % (AUTO) 1 % (0-10); HEMATOCRIT 32 % (40-54); HEMOGLOBIN 10.5 G/DL (13.3-17.7); LYMPHOCYTES # (AUTO) 0.8 X 10^3 (1.0-4.0); LYMPHOCYTES % (AUTO) 67 % (12-44); MEAN CORPUSCULAR HEMOGLOBIN 31 PG (25-34); MEAN CORPUSCULAR HGB CONC 33 G/DL (32-36); MEAN CORPUSCULAR VOLUME 94 FL (80-99); MEAN PLATELET VOLUME 10.7 FL (7.4-10.4); MONOCYTES # (AUTO) 0.2 X 10^3 (0.0-1.0); MONOCYTES % (AUTO) 19 % (0-12); NEUTROPHILS # (AUTO) 0.2 X 10^3 (1.8-7.8); NEUTROPHILS % (AUTO) 12 % (42-75); PLATELET COUNT 147 10^3/uL (130-400)
[2018-10-09 10:57] LABS: WHITE BLOOD COUNT 1.2 10^3/uL (4.3-11.0)
[2018-10-09 11:13] LABS: CALCIUM 9.4 MG/DL (8.5-10.1); CREATININE SERUM 1.28 MG/DL (0.60-1.30); POTASSIUM 4.3 MMOL/L (3.6-5.0)
[2018-10-16 08:19] LABS: BASOPHILS % (AUTO) 1 % (0-10); EOSINOPHILS # (AUTO) 0.1 10^3/uL (0.0-0.3); EOSINOPHILS % (AUTO) 1 % (0-10); HEMATOCRIT 31 % (40-54); HEMOGLOBIN 10.5 G/DL (13.3-17.7); LYMPHOCYTES # (AUTO) 1.3 X 10^3 (1.0-4.0); LYMPHOCYTES % (AUTO) 20 % (12-44); MEAN CORPUSCULAR HEMOGLOBIN 32 PG (25-34); MEAN CORPUSCULAR HGB CONC 34 G/DL (32-36); MEAN CORPUSCULAR VOLUME 95 FL (80-99); MEAN PLATELET VOLUME 9.8 FL (7.4-10.4); MONOCYTES # (AUTO) 0.8 X 10^3 (0.0-1.0); MONOCYTES % (AUTO) 12 % (0-12); NEUTROPHILS # (AUTO) 4.5 X 10^3 (1.8-7.8); NEUTROPHILS % (AUTO) 67 % (42-75); PLATELET COUNT 165 10^3/uL (130-400); RED CELL DISTRIBUTION WIDTH 14.4 % (10.0-14.5); WHITE BLOOD COUNT 6.7 10^3/uL (4.3-11.0)
[2018-10-16 08:39] LABS: ALBUMIN 3.9 GM/DL (3.2-4.5); BILIRUBIN,TOTAL 0.3 MG/DL (0.1-1.0); CALCIUM 9.3 MG/DL (8.5-10.1); CREATININE SERUM 1.43 MG/DL (0.60-1.30); MAGNESIUM 2.3 MG/DL (1.8-2.4); POTASSIUM 3.9 MMOL/L (3.6-5.0)
[2018-10-23 14:19] LABS: BASOPHILS % (AUTO) 0 % (0-10); EOSINOPHILS % (AUTO) 0 % (0-10); HEMATOCRIT 29 % (40-54); HEMOGLOBIN 9.7 G/DL (13.3-17.7); LYMPHOCYTES # (AUTO) 0.7 X 10^3 (1.0-4.0); LYMPHOCYTES % (AUTO) 10 % (12-44); MEAN CORPUSCULAR HEMOGLOBIN 32 PG (25-34); MEAN CORPUSCULAR HGB CONC 33 G/DL (32-36); MEAN CORPUSCULAR VOLUME 95 FL (80-99); MONOCYTES % (AUTO) 1 % (0-12); NEUTROPHILS # (AUTO) 5.9 X 10^3 (1.8-7.8); NEUTROPHILS % (AUTO) 89 % (42-75); PLATELET COUNT 214 10^3/uL (130-400); RED CELL DISTRIBUTION WIDTH 14.5 % (10.0-14.5); WHITE BLOOD COUNT 6.6 10^3/uL (4.3-11.0)
[2018-10-23 14:37] LABS: CALCIUM 9.3 MG/DL (8.5-10.1); CREATININE SERUM 1.19 MG/DL (0.60-1.30); POTASSIUM 4.3 MMOL/L (3.6-5.0)
[2018-10-30 09:12] LABS: CALCIUM 9.5 MG/DL (8.5-10.1); CREATININE SERUM 1.19 MG/DL (0.60-1.30); POTASSIUM 3.8 MMOL/L (3.6-5.0)
[2018-11-06 08:58] LABS: BASOPHILS % (AUTO) 0 % (0-10); EOSINOPHILS % (AUTO) 1 % (0-10); HEMATOCRIT 30 % (40-54); HEMOGLOBIN 9.8 G/DL (13.3-17.7); LYMPHOCYTES # (AUTO) 1.1 X 10^3 (1.0-4.0); LYMPHOCYTES % (AUTO) 23 % (12-44); MEAN CORPUSCULAR HEMOGLOBIN 32 PG (25-34); MEAN CORPUSCULAR HGB CONC 33 G/DL (32-36); MEAN CORPUSCULAR VOLUME 98 FL (80-99); MEAN PLATELET VOLUME 9.3 FL (7.4-10.4); MONOCYTES # (AUTO) 0.7 X 10^3 (0.0-1.0); MONOCYTES % (AUTO) 15 % (0-12); NEUTROPHILS # (AUTO) 2.9 X 10^3 (1.8-7.8); NEUTROPHILS % (AUTO) 61 % (42-75); PLATELET COUNT 220 10^3/uL (130-400); RED CELL DISTRIBUTION WIDTH 16.7 % (10.0-14.5); WHITE BLOOD COUNT 4.8 10^3/uL (4.3-11.0)
[2018-11-06 09:22] LABS: ALBUMIN 3.8 GM/DL (3.2-4.5); BILIRUBIN,TOTAL 0.3 MG/DL (0.1-1.0); CALCIUM 9.2 MG/DL (8.5-10.1); CREATININE SERUM 1.32 MG/DL (0.60-1.30); MAGNESIUM 2.2 MG/DL (1.8-2.4); TOTAL PROTEIN 6.6 GM/DL (6.4-8.2)
[2018-11-13 10:46] LABS: BASOPHILS % (AUTO) 0 % (0-10); EOSINOPHILS % (AUTO) 0 % (0-10); HEMATOCRIT 29 % (40-54); HEMOGLOBIN 9.7 G/DL (13.3-17.7); LYMPHOCYTES # (AUTO) 0.9 X 10^3 (1.0-4.0); LYMPHOCYTES % (AUTO) 23 % (12-44); MEAN CORPUSCULAR HEMOGLOBIN 32 PG (25-34); MEAN CORPUSCULAR HGB CONC 33 G/DL (32-36); MEAN CORPUSCULAR VOLUME 98 FL (80-99); MEAN PLATELET VOLUME 9.5 FL (7.4-10.4); MONOCYTES % (AUTO) 1 % (0-12); NEUTROPHILS % (AUTO) 76 % (42-75); PLATELET COUNT 215 10^3/uL (130-400); RED CELL DISTRIBUTION WIDTH 16.6 % (10.0-14.5); WHITE BLOOD COUNT 3.9 10^3/uL (4.3-11.0)
[2018-11-13 11:08] LABS: BUN/CREATININE RATIO 19; CALCIUM 9.4 MG/DL (8.5-10.1); CARBON DIOXIDE 27 MMOL/L (21-32); CHLORIDE 104 MMOL/L (98-107); CREATININE SERUM 1.05 MG/DL (0.60-1.30); GFR ESTIMATED > 60; GLUCOSE 86 MG/DL (70-105); POTASSIUM 4.3 MMOL/L (3.6-5.0); SODIUM 139 MMOL/L (135-145)
[2018-11-20 10:19] LABS: BASOPHILS % (AUTO) 1 % (0-10); EOSINOPHILS % (AUTO) 2 % (0-10); HEMATOCRIT 29 % (40-54); HEMOGLOBIN 9.4 G/DL (13.3-17.7); LYMPHOCYTES # (AUTO) 0.7 X 10^3 (1.0-4.0); LYMPHOCYTES % (AUTO) 60 % (12-44); MEAN CORPUSCULAR HEMOGLOBIN 32 PG (25-34); MEAN CORPUSCULAR HGB CONC 32 G/DL (32-36); MEAN CORPUSCULAR VOLUME 99 FL (80-99); MEAN PLATELET VOLUME 10.5 FL (7.4-10.4); MONOCYTES # (AUTO) 0.3 X 10^3 (0.0-1.0); MONOCYTES % (AUTO) 25 % (0-12); NEUTROPHILS # (AUTO) 0.1 X 10^3 (1.8-7.8); NEUTROPHILS % (AUTO) 12 % (42-75); PLATELET COUNT 129 10^3/uL (130-400); RED CELL DISTRIBUTION WIDTH 17.2 % (10.0-14.5)
[2018-11-20 10:23] LABS: WHITE BLOOD COUNT 1.1 10^3/uL (4.3-11.0)
[2018-11-20 10:36] LABS: CALCIUM 9.2 MG/DL (8.5-10.1); CREATININE SERUM 1.33 MG/DL (0.60-1.30)
[~2018-11-27] VITALS: Ht 175.3 cm; Wt 87.5 kg
[~2018-11-27] MED LIST changes: +CARBOPLATIN IV SCH; -CATHETER FLUSH 10 ML SYR IV PRN; +D5W IV SCH; +ETOPOSIDE 200 MG in NORMAL SALINE (CANCER CENTER) 500 ML IV SCH; +FOSAPREPITANT DIMEGLUMINE 150 MG in NS (IVPB) CANCER CENTER ONLY 150 ML IV SCH; -IOHEXOL 350 MG/ML 100 ML (OMNIPAQUE 350) VIAL IV ONE; -NS 100 ML (IVPB) BAG IV ONE; +NS IV 1000 ML (CANCER CTR) IV SCH; +NS IV 500 ML (CANCER CENTER) 500 ML ONE; +ONDANSETRON MDV (CANCER CENTER 16 MG, DEXAMETHASONE INJECTION 10 MG in NS (IVPB) CANCER... IV SCH; +PALONOSETRON HCL 0.25 MG, DEXAMETHASONE INJECTION 10 MG in NS (IVPB) CANCER CENTER 50 ML IV SCH; -RECEIVED CONTRAST (Hold Metformin) IV SCH
[2018-11-27 09:54] LABS: BASOPHILS % (AUTO) 0 % (0-10); EOSINOPHILS % (AUTO) 0 % (0-10); HEMATOCRIT 30 % (40-54); HEMOGLOBIN 9.7 G/DL (13.3-17.7); LYMPHOCYTES % (AUTO) 15 % (12-44); MEAN CORPUSCULAR HEMOGLOBIN 32 PG (25-34); MEAN CORPUSCULAR HGB CONC 33 G/DL (32-36); MEAN CORPUSCULAR VOLUME 99 FL (80-99); MEAN PLATELET VOLUME 9.8 FL (7.4-10.4); MONOCYTES % (AUTO) 15 % (0-12); NEUTROPHILS # (AUTO) 4.7 X 10^3 (1.8-7.8); NEUTROPHILS % (AUTO) 69 % (42-75); PLATELET COUNT 227 10^3/uL (130-400); RED CELL DISTRIBUTION WIDTH 16.9 % (10.0-14.5); WHITE BLOOD COUNT 6.8 10^3/uL (4.3-11.0)
[2018-11-27 10:11] LABS: ALBUMIN 3.8 GM/DL (3.2-4.5); BILIRUBIN,TOTAL 0.4 MG/DL (0.1-1.0); CALCIUM 9.5 MG/DL (8.5-10.1); CREATININE SERUM 1.44 MG/DL (0.60-1.30); MAGNESIUM 1.9 MG/DL (1.8-2.4); POTASSIUM 4.1 MMOL/L (3.6-5.0); TOTAL PROTEIN 6.8 GM/DL (6.4-8.2)
== END | disposition home or self-care (01) ==
LOC: ONC 08-29 09:41
PROVIDERS: ATTEND Internal Medicine Hematology & Oncology
DX: C7A.8 Other malignant neuroendocrine tumors (principal); C61 Malignant neoplasm of prostate; I10 Essential (primary) hypertension; E78.5 Hyperlipidemia, unspecified; I25.10 Atherosclerotic heart disease of native coronary artery without angina pectoris; N40.0 Benign prostatic hyperplasia without lower urinary tract symptoms; Z79.82 Long term (current) use of aspirin; Z79.899 Other long term (current) drug therapy; Z95.5 Presence of coronary angioplasty implant and graft
CPT/HCPCS: 36415; 36591; 80048; 80053; 83615; 83735; 85025; 96367; 96375; 96413; 96417; 99213

== ENCOUNTER → 2019-01-13 | Outpatient (CLI) | payer MEDICARE, OTHER ==
[~2019-01-13] MED LIST changes: -CARBOPLATIN IV SCH; -D5W IV SCH; -ETOPOSIDE 200 MG in NORMAL SALINE (CANCER CENTER) 500 ML IV SCH; -FOSAPREPITANT DIMEGLUMINE 150 MG in NS (IVPB) CANCER CENTER ONLY 150 ML IV SCH; +GADOBUTROL 10 MMOL/10 ML (GADAVIST) VIAL IV ONE; -NS IV 1000 ML (CANCER CTR) IV SCH; -NS IV 500 ML (CANCER CENTER) 500 ML ONE; -ONDANSETRON MDV (CANCER CENTER 16 MG, DEXAMETHASONE INJECTION 10 MG in NS (IVPB) CANCER... IV SCH; -PALONOSETRON HCL 0.25 MG, DEXAMETHASONE INJECTION 10 MG in NS (IVPB) CANCER CENTER 50 ML IV SCH
--- NOTE | 2019-01-13 08:56 | Diagnostic Imaging Report ---
PROCEDURE: CT chest with contrast, CT abdomen and pelvis with and without contrast. TECHNIQUE: Pre and post intravenous contrast axial imaging of the abdomen and pelvis and post contrast axial imaging of the chest were performed. Auto Exposure Controls were utilized during the CT exam to meet ALARA standards for radiation dose reduction. INDICATION: Small cell carcinoma. Patient presents for followup. Correlation is made with prior CT from 10/30/2018. FINDINGS: Left chest wall port has the tip within the superior vena cava. No axillary lymphadenopathy is identified. Normal sized lymph nodes in the mediastinum are identified. Minimal soft tissue fullness in the subcarinal region is stable when compared with prior exam. No hilar lymphadenopathy is detected. No pericardial or pleural fluid is detected. 2 mm micronodule left upper lobe appear stable when compared with prior exam. There is minimal linear scarring or subsegmental atelectasis left lower lobe. No parenchymal infiltrate is seen. No other mass is detected. Lucency in the posterior midline of the T8 vertebral body appears stable to prior exam. CT abdomen and pelvis: No discrete liver mass is identified. Stones within the gallbladder are again noted. There is no biliary ductal dilatation. The pancreas and spleen are unremarkable. No adrenal mass is identified. Kidneys are unremarkable. Aorta is non-aneurysmal. No central retroperitoneal or mesenteric lymphadenopathy is identified. Evaluation of bowel loops does show long segment of circumferential wall thickening involving the transverse colon. This involves approximately the mid to distal aspect of the transverse colon with involvement of the splenic flexure. The descending and sigmoid colon are unremarkable. There is no ascites. Bladder is decompressed. There is enlargement to the prostate gland which appears similar to prior examination. No iliac or inguinal lymphadenopathy is detected. Previously noted small lucencies involving lumbar vertebrae appear to be stable. No new osteolytic lesion is identified. IMPRESSION: 1. Stable CT of the chest when compared with exam from 10/30/2018. No definite thoracic lymphadenopathy or evidence of pulmonary metastatic disease is identified. 2. No evidence of abdominal or pelvic lymphadenopathy or metastatic disease. 3. Long segment circumferential wall thickening involving the transverse colon, nonspecific. This could be secondary to nonspecific colitis. Correlation with endoscopy would be recommended. No other significant abnormality is detected. Previously noted osteolytic lesions appear stable. Dictated by: Dictated on workstation # [id number]
--- NOTE | 2019-01-13 10:16 | Diagnostic Imaging Report ---
PROCEDURE: MR imaging of the brain with and without contrast. TECHNIQUE: Multiplanar, multisequence MR imaging of the brain was performed with and without contrast. INDICATION: Small cell carcinoma. No prior studies are available for comparison. FINDINGS: The ventricles and sulci are within normal limits. There are scattered periventricular and subcortical white matter signal abnormalities noted consistent with changes of chronic microvascular ischemia. No diffusion restriction is identified to suggest acute ischemia. The normal expected flow voids within the carotid siphons are identified. There is no midline shift. No acute intra-axial or extra-axial hemorrhage is identified. Postcontrast images are without evidence of an abnormal enhancing lesion. The corpus callosum is unremarkable. The sella and parasellar structures are unremarkable. IMPRESSION: 1. Changes of chronic microvascular ischemia. 2. Otherwise, unremarkable MRI of the brain. No acute intracranial process is identified. There are no findings to suggest intracranial metastatic disease. Dictated by: Dictated on workstation # [id number]
== END ==
LOC: RAD 07:35
PROVIDERS: ATTEND Internal Medicine Hematology & Oncology
DX: C79.51 Secondary malignant neoplasm of bone (principal); C77.9 Secondary and unspecified malignant neoplasm of lymph node, unspecified; C80.1 Malignant (primary) neoplasm, unspecified; I67.82 Cerebral ischemia; K63.89 Other specified diseases of intestine
CPT/HCPCS: 70553; 71260; 74178

== ENCOUNTER → 2019-04-18 | Outpatient (CLI) | payer OTHER ==
[~2019-04-18] MED LIST changes: +BARIUM SUSPENSION 2.1% (VANILLA SILQ) 450 ML PO ONE; +CATHETER FLUSH 10 ML SYR IV PRN; +FISH1CAP15 PO; -GADOBUTROL 10 MMOL/10 ML (GADAVIST) VIAL IV ONE; +HOLD METFORMIN - RECEIVED CONTRAST 20 ML VIAL IV SCH; +IOHEXOL 350 MG/ML 100 ML (OMNIPAQUE 350) VIAL IV ONE; +MULT-1029 PO; +NS 100 ML (IVPB) BAG IV ONE; +PANT20TA3 PO; +POLY17PO6 PO; +TAMS0.4C98 PO
--- NOTE | 2019-04-18 16:06 | Diagnostic Imaging Report ---
PROCEDURE: CT chest with contrast, CT abdomen and pelvis with and without contrast. TECHNIQUE: Pre and post intravenous contrast axial imaging of the abdomen and pelvis and post contrast axial imaging of the chest were performed. Auto Exposure Controls were utilized during the CT exam to meet ALARA standards for radiation dose reduction. INDICATION: Small cell carcinoma. Patient reports lower pelvic pain for last month. COMPARISON: Comparison is made with prior CT from 01/13/2019. FINDINGS: CT CHEST: Left chest wall port remains in place with tip in the superior vena cava. No axillary lymphadenopathy is seen. Mediastinal and hilar appearance are stable when compared with prior exam. No significant lymphadenopathy is seen. Minimal soft tissue fullness in the subcarinal region is stable. There is no pericardial or pleural fluid detected. No pulmonary mass is seen. No infiltrate or nodule is detected. There is minimal linear scarring in the left lower lobe. IMPRESSION: Stable CT chest since 01/13/2019. No thoracic lymphadenopathy or pulmonary metastatic disease is detected. CT ABDOMEN AND PELVIS: There is a vague low-density mass in the inferior right lobe of the liver measuring 14 mm. This was not present on prior CT. No additional liver lesions are seen. There are stones within the gallbladder. No biliary ductal dilatation is seen. The pancreas and spleen are unremarkable. No adrenal mass is identified. There is asymmetry in renal size, right smaller. Tiny cortical low density in the left kidney is stable. This is too small to characterize but likely cyst. Aorta is non-aneurysmal. There has been development of some enlarged lymph nodes in the central retroperitoneum, left periaortic location. Aggregate of nodes measures 2.0 x 1.4 cm. No definite mesenteric lymphadenopathy is seen. Small and large bowel loops are normal caliber. In particular, the transverse colon has a more normal appearance on today's study. Previous study did show diffuse wall thickening. There are some enlarged left iliac lymph nodes, new since prior exam. Enlarged node adjacent to left common iliac artery measures 2.4 x 1.4 cm. More distal iliac lymph nodes have developed as well measuring up to 2.9 x 2.3 cm on the right and 3.6 x 2.0 cm on the left. Obturator lymphadenopathy on the right is also present measuring 3.1 x 2.0 cm. There is a soft tissue mass anterior to the rectum measuring 3.0 x 2.4 cm. Prostate is significantly enlarged. No inguinal lymphadenopathy is identified. Bladder is unremarkable. Evaluation of bony structures does show lytic lesion of the left pubic body measuring 2.2 cm. No other bony abnormalities are detected. IMPRESSION: Development of a low-density lesion in the right lobe of the liver as well as central retroperitoneal and pelvic lymphadenopathy consistent with metastatic disease. There is also prostatomegaly. Note is also made of a lytic lesion of the left pubic body. Dictated on workstation # [id number]
== END ==
LOC: RAD 14:38
PROVIDERS: ATTEND Internal Medicine Hematology & Oncology
DX: C77.9 Secondary and unspecified malignant neoplasm of lymph node, unspecified (principal); C79.51 Secondary malignant neoplasm of bone; C80.1 Malignant (primary) neoplasm, unspecified; K76.9 Liver disease, unspecified; N40.0 Benign prostatic hyperplasia without lower urinary tract symptoms; R59.0 Localized enlarged lymph nodes; Z95.828 Presence of other vascular implants and grafts
CPT/HCPCS: 71260; 74178

== ENCOUNTER 2019-04-22 01:33 | Inpatient (IN) | payer MEDICARE, OTHER ==
[~2019-04-22] VITALS: Ht 175.3 cm; Wt 82.6 kg
[2019-04-22] VITALS (24 sets, daily range): BP systolic 106–145; BP diastolic 53–97
[~2019-04-22 01:33] MED LIST changes: -BARIUM SUSPENSION 2.1% (VANILLA SILQ) 450 ML PO ONE; -CATHETER FLUSH 10 ML SYR IV PRN; -FISH1CAP15 PO; -HOLD METFORMIN - RECEIVED CONTRAST 20 ML VIAL IV SCH; -IOHEXOL 350 MG/ML 100 ML (OMNIPAQUE 350) VIAL IV ONE; -MULT-1029 PO; -NS 100 ML (IVPB) BAG IV ONE; -PANT20TA3 PO; -POLY17PO6 PO; -TAMS0.4C98 PO
[2019-04-22 01:59] LABS: BASOPHILS % (AUTO) 0 % (0-10); EOSINOPHILS # (AUTO) 0.2 10^3/uL (0.0-0.3); EOSINOPHILS % (AUTO) 4 % (0-10); HEMATOCRIT 38 % (40-54); HEMOGLOBIN 12.5 G/DL (13.3-17.7); LYMPHOCYTES # (AUTO) 1.8 X 10^3 (1.0-4.0); LYMPHOCYTES % (AUTO) 29 % (12-44); MEAN CORPUSCULAR HEMOGLOBIN 30 PG (25-34); MEAN CORPUSCULAR HGB CONC 33 G/DL (32-36); MEAN CORPUSCULAR VOLUME 92 FL (80-99); MONOCYTES # (AUTO) 0.6 X 10^3 (0.0-1.0); MONOCYTES % (AUTO) 10 % (0-12); NEUTROPHILS # (AUTO) 3.6 X 10^3 (1.8-7.8); NEUTROPHILS % (AUTO) 57 % (42-75); PLATELET COUNT 200 10^3/uL (130-400); RED CELL DISTRIBUTION WIDTH 13.4 % (10.0-14.5); WHITE BLOOD COUNT 6.3 10^3/uL (4.3-11.0)
[2019-04-22] MEDS ORDERED: DILTIAZEM IV FOR DRIP 125 MG in NS (IVPB) 100 ML IV SCH (02:00)
[2019-04-22 02:09] LABS: INR 0.9 (0.8-1.4); PROTHROMBIN TIME PATIENT 12.9 SEC (12.2-14.7)
[2019-04-22 02:19] LABS: ALANINE AMINOTRANSFERASE 21 U/L (0-55); ALBUMIN 4.1 GM/DL (3.2-4.5); ALKALINE PHOSPHATASE 118 U/L (40-136); BILIRUBIN,TOTAL 0.3 MG/DL (0.1-1.0); BUN/CREATININE RATIO 13; CALCIUM 9.4 MG/DL (8.5-10.1); CARBON DIOXIDE 22 MMOL/L (21-32); CHLORIDE 103 MMOL/L (98-107); CREATININE SERUM 1.61 MG/DL (0.60-1.30); GFR ESTIMATED 42; GLUCOSE 120 MG/DL (70-105); POTASSIUM 3.8 MMOL/L (3.6-5.0); SODIUM 138 MMOL/L (135-145); TOTAL PROTEIN 7.3 GM/DL (6.4-8.2)
--- OUTSIDE RECORDS SUMMARY | 2019-04-22 02:36 | XMS REPORT | Continuity of Care Document ---
Author Organization Unknown Address Unknown Allergies Active Description Code Type Severity Reaction Onset Reported/Identified Relationship to Patient Clinical Status Yes NO KNOWN DRUG ALLERGIES UNKNOWN UNKNOWN Yes No Known Drug Allergies [id number] Drug Allergy Unknown N/A 08/20/2018 Yes Beta-Blockers (Beta-Adrenergic Bloc [id number] Drug Allergy Unknown N/A 09/02/2018 Medications Medication Packaging Start Date Stop Date Route Dosage Sig LACTATED RINGERS 1000CC IV BAG INJ ml 03/28/2019 04/04/2019 CONTINUOUSEVERY 0 Hour Problems Date Dx Coded Attending Type Code Diagnosis Diagnosed By WILLIAM MILLER MD Ot C61 MALIGNANT NEOPLASM OF PROSTATE WILLIAM MILLER MD Ot C7A.8 OTHER MALIGNANT NEUROENDOCRINE TUMORS WILLIAM MILLER MD Ot E78.5 HYPERLIPIDEMIA, UNSPECIFIED WILLIAM MILLER MD Ot I10 ESSENTIAL (PRIMARY) HYPERTENSION WILLIAM MILLER MD Ot I25.10 ATHSCL HEART DISEASE OF [place] CORONARY WILLIAM MILLER MD Ot N40.0 BENIGN PROSTATIC HYPERPLASIA WITHOUT LOW WILLIAM MILLER MD Ot Z79.82 CORRECTION (CURRENT) USE OF ASPIRIN WILLIAM MILLER MD Ot 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 WILLIAM MILLER MD Ot [...] INFARCT 11/06/2011 Ot 414.01 CORONARY ATHEROSCLEROSIS OF [place] CORON 11/06/2011 Ot 427.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 NODE DYSFUNCT 11/06/2011 Ot 794.30 ABN CARDIOVASC STUDY NOS 11/06/2011 Ot V10.46 HX-PROSTATIC MALIGNANCY 11/06/2011 Ot V45.82 PERCUTANEOUS TRANSLUM CORON ANGIOPLASTY 01/13/2013 Ot 785.1 PALPITATIONS 03/15/2013 JUAN CARDENAS MD Ot 185 MALIGN NEOPL PROSTATE 03/15/2013 JUAN CARDENAS MD Ot 272.4 HYPERLIPIDEMIA NEC/NOS 03/15/2013 JUAN CARDENAS MD Ot 401.9 HYPERTENSION NOS 03/15/2013 JUAN CARDENAS MD Ot 412 OLD MYOCARDIAL INFARCT 03/15/2013 JUAN CARDENAS MD Ot 414.01 CORONARY ATHEROSCLEROSIS OF [place] CORON 03/15/2013 JUAN CARDENAS MD Ot 427.31 [...] E78.5 HYPERLIPIDEMIA, UNSPECIFIED 01/18/2016 Ot I10 ESSENTIAL (PRIMARY) HYPERTENSION 01/18/2016 Ot I25.10 ATHSCL HEART DISEASE OF [place] CORONARY 01/18/2016 Ot I48.0 PAROXYSMAL ATRIAL FIBRILLATION 01/18/2016 Ot N28.9 DISORDER OF KIDNEY AND URETER, UNSPECIFI 01/18/2016 Ot R07.89 OTHER CHEST PAIN 01/18/2016 Ot Z79.899 OTHER CORRECTION (CURRENT) DRUG THERAPY 01/18/2016 Ot Z98.61 CORONARY [...] Ot M22.42 CHONDROMALACIA PATELLAE, LEFT KNEE 04/27/2016 CHAYA WOODSON MD Ot M23.8X2 OTHER INTERNAL DERANGEMENTS OF LEFT KNEE 05/23/2016 Ot 185 MALIGN NEOPL PROSTATE 05/23/2016 Ot 272.0 PURE HYPERCHOLESTEROLEM 05/23/2016 Ot 401.9 HYPERTENSION NOS 05/23/2016 Ot V58.69 OTH MED,LT,CURRENT USE 05/23/2016 Ot 785.1 PALPITATIONS 05/23/2016 DILMA [...] I10 ESSENTIAL (PRIMARY) HYPERTENSION 03/07/2017 CHAYA WOODSON MD Ot I25.10 ATHSCL HEART DISEASE OF [place] CORONARY 03/07/2017 ZAFUTA MD, CHAYA P Ot I48.91 UNSPECIFIED ATRIAL FIBRILLATION 03/07/2017 CHAYA WOODSON MD Ot M22.41 CHONDROMALACIA PATELLAE, RIGHT KNEE 03/07/2017 CHAYA WOODSON MD Ot M23.8X1 OTHER INTERNAL DERANGEMENTS OF RIGHT KNE 03/07/2017 CHAYA WOODSON MD Ot 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 03/07/2017 CHAYA WOODSON MD Ot Z85.46 PERSONAL HISTORY OF MALIGNANT NEOPLASM O 03/07/2017 CHAYA WOODSON MD Ot 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 ANGIOPLASTY IMPLANT 03/08/2017 CHAYA WOODSON MD Ot E78.5 HYPERLIPIDEMIA, UNSPECIFIED 03/08/2017 CHAYA WOODSON MD Ot I10 ESSENTIAL (PRIMARY) HYPERTENSION 03/08/2017 CHAYA WOODSON MD Ot I25.10 ATHSCL HEART DISEASE OF [place] CORONARY 03/08/2017 CHAYA WOODSON MD Ot I48.91 UNSPECIFIED ATRIAL FIBRILLATION 03/08/2017 CHAYA WOODSON MD Ot M22.41 CHONDROMALACIA PATELLAE, RIGHT KNEE 03/08/2017 CHAYA WOODSON MD Ot M23.8X1 OTHER INTERNAL DERANGEMENTS OF RIGHT KNE 03/08/2017 CHAYA WOODSON MD Ot 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 03/08/2017 CHAYA WOODSON MD Ot Z85.46 PERSONAL HISTORY OF MALIGNANT NEOPLASM O 03/08/2017 CHAYA WOODSON MD Ot 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 ANGIOPLASTY IMPLANT 03/08/2017 CHAYA WOODSON MD Ot E78.5 HYPERLIPIDEMIA, UNSPECIFIED 03/08/2017 CHAYA WOODSON MD Ot I10 ESSENTIAL (PRIMARY) HYPERTENSION 03/08/2017 CHAYA WOODSON MD Ot I25.10 ATHSCL HEART DISEASE OF [place] CORONARY 03/08/2017 CHAYA WOODSON MD Ot I48.91 UNSPECIFIED ATRIAL FIBRILLATION 03/08/2017 CHAYA WOODSON MD Ot M22.41 CHONDROMALACIA PATELLAE, RIGHT KNEE 03/08/2017 CHAYA WOODSON MD Ot M23.8X1 OTHER INTERNAL DERANGEMENTS OF RIGHT KNE 03/08/2017 CHAYA WOODSON MD Ot 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 03/08/2017 CHAYA WOODSON MD, Ot Z85.46 PERSONAL HISTORY OF MALIGNANT NEOPLASM O 03/08/2017 CHAYA WOODSON MD, Ot 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 ANGIOPLASTY IMPLANT 03/09/2017 CHAYA WOODSON MD, Ot E78.5 HYPERLIPIDEMIA, UNSPECIFIED 03/09/2017 CHAYA WOODSON MD, Ot I10 ESSENTIAL (PRIMARY) HYPERTENSION 03/09/2017 CHAYA WOODSON MD, Ot I25.10 ATHSCL HEART DISEASE OF [place] CORONARY 03/09/2017 CHAYA WOODSON MD, Ot I48.91 UNSPECIFIED ATRIAL FIBRILLATION 03/09/2017 CHAYA WOODSON MD, Ot M22.41 CHONDROMALACIA PATELLAE, RIGHT KNEE 03/09/2017 CHAYA WOODSON MD, Ot M23.8X1 OTHER INTERNAL DERANGEMENTS OF RIGHT KNE 03/09/2017 CHAYA WOODSON MD, Ot Z79.899 OTHER CORRECTION (CURRENT) DRUG THERAPY 03/09/2017 CHAYA WOODSON MD, [...] E78.5 HYPERLIPIDEMIA, UNSPECIFIED 03/10/2017 Ot I10 ESSENTIAL (PRIMARY) HYPERTENSION 03/10/2017 Ot I25.10 ATHSCL HEART DISEASE OF [place] CORONARY 03/10/2017 Ot I48.0 PAROXYSMAL ATRIAL FIBRILLATION 03/10/2017 Ot N28.9 DISORDER OF KIDNEY AND URETER, UNSPECIFI 03/10/2017 Ot R07.89 OTHER CHEST PAIN 03/10/2017 Ot 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 03/10/2017 Ot Z98.61 CORONARY [...] E78.5 HYPERLIPIDEMIA, UNSPECIFIED 01/11/2018 Ot I10 ESSENTIAL (PRIMARY) HYPERTENSION 01/11/2018 Ot I25.10 ATHSCL HEART DISEASE OF [place] CORONARY 01/11/2018 Ot I48.0 PAROXYSMAL ATRIAL FIBRILLATION 01/11/2018 Ot N28.9 DISORDER OF KIDNEY AND URETER, UNSPECIFI 01/11/2018 Ot R07.89 OTHER CHEST PAIN 01/11/2018 Ot Z79.899 OTHER CORRECTION (CURRENT) DRUG THERAPY 01/11/2018 Ot Z98.61 CORONARY [...] E78.5 HYPERLIPIDEMIA, UNSPECIFIED 01/11/2018 Ot I10 ESSENTIAL (PRIMARY) HYPERTENSION 01/11/2018 Ot I25.10 ATHSCL HEART DISEASE OF [place] CORONARY 01/11/2018 Ot I48.0 PAROXYSMAL ATRIAL FIBRILLATION 01/11/2018 Ot N28.9 DISORDER OF KIDNEY AND URETER, UNSPECIFI 01/11/2018 Ot R07.89 OTHER CHEST PAIN 01/11/2018 Ot Z79.899 OTHER CORRECTION (CURRENT) DRUG THERAPY 01/11/2018 Ot Z98.61 CORONARY ANGIOPLASTY STATUS 01/11/2018 RAJAT CHAVIS JP K Ot E78.5 HYPERLIPIDEMIA, UNSPECIFIED 01/11/2018 RAJAT CHAVIS JP Tony Ot I08.1 RHEUMATIC DISORDERS OF BOTH MITRAL AND T 01/11/2018 RAJAT CHAVIS JP K Ot I10 ESSENTIAL (PRIMARY) HYPERTENSION 01/11/2018 RAJAT CHAVIS JP K Ot I48.0 PAROXYSMAL ATRIAL FIBRILLATION 01/15/2018 JUAN CARDENAS MD Ot E78.5 HYPERLIPIDEMIA, UNSPECIFIED 01/15/2018 JUAN CARDENAS MD Ot I10 ESSENTIAL (PRIMARY) HYPERTENSION 01/15/2018 JUAN CARDENAS MD Ot I48.0 PAROXYSMAL ATRIAL FIBRILLATION 01/18/2018 RAJAT CHAVIS JP K Ot E78.5 HYPERLIPIDEMIA, UNSPECIFIED 01/18/2018 RAJAT CHAVIS JP K Ot I08.1 RHEUMATIC DISORDERS OF BOTH [place] AND T 01/18/2018 RAJAT CHAVIS JP K Ot I10 ESSENTIAL (PRIMARY) HYPERTENSION 01/18/2018 RAJAT [...] E78.5 HYPERLIPIDEMIA, UNSPECIFIED 08/15/2018 Ot I10 ESSENTIAL (PRIMARY) HYPERTENSION 08/15/2018 Ot I25.10 ATHSCL HEART DISEASE OF [place] CORONARY 08/15/2018 Ot I48.0 PAROXYSMAL ATRIAL FIBRILLATION 08/15/2018 Ot N28.9 DISORDER OF KIDNEY AND URETER, UNSPECIFI 08/15/2018 Ot R07.89 OTHER CHEST PAIN 08/15/2018 Ot 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 08/15/2018 Ot Z98.61 CORONARY [...] DO Ot I25.10 ATHSCL HEART DISEASE OF [place] CORONARY 08/21/2018 COLEMAN GUEVARA DO Ot I25.2 OLD MYOCARDIAL INFARCTION 08/21/2018 COLEMAN GUEVARA DO Ot I48.0 PAROXYSMAL ATRIAL FIBRILLATION 08/21/2018 COLEMAN GUEVARA DO Ot I65.29 OCCLUSION AND STENOSIS OF UNSPECIFIED CA 08/21/2018 COLEMAN GUEVARA DO Ot I87.2 VENOUS INSUFFICIENCY (CHRONIC) (PERIPHER 08/21/2018 DELMAN DO, COLEMAN B Ot K21.9 GASTRO-ESOPHAGEAL REFLUX DISEASE WITHOUT 08/21/2018 DELMAN DO, COLEMAN B Ot Z11.2 ENCOUNTER FOR SCREENING FOR OTHER BACTER 08/21/2018 DELMAN DO, COLEMAN B Ot 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 ANGIOPLASTY IMPLANT 08/23/2018 WILLIAM MILLER MD Ot N40.0 BENIGN PROSTATIC HYPERPLASIA WITHOUT LOW 08/27/2018 DELMAN DO, COLEMAN B Ot C61 MALIGNANT NEOPLASM OF PROST[place] 08/27/2018 DELMAN DO, COLEMAN B Ot C7A.8 OTHER MALIGNANT NEUROENDOCRINE TUMORS 08/27/2018 DELMAN DO, COLEMAN B Ot E78.5 HYPERLIPIDEMIA, UNSPECIFIED 08/27/2018 DELMAN DO, COLEMAN B Ot I10 ESSENTIAL (PRIMARY) HYPERTENSION 08/27/2018 DELMAN DO, COLEMAN B Ot I25.10 ATHSCL HEART DISEASE OF [place] CORONARY 08/27/2018 DELMAN DO, COLEMAN B Ot I25.2 OLD MYOCARDIAL INFARCTION 08/27/2018 DELMAN DO, COLEMAN B Ot I48.0 PAROXYSMAL ATRIAL FIBRILLATION 08/27/2018 DELMAN DO, COLEMAN B Ot I65.29 OCCLUSION AND STENOSIS OF UNSPECIFIED CA 08/27/2018 DELMAN DO, COLEMAN B Ot I87.2 VENOUS INSUFFICIENCY (CHRONIC) (PERIPHER 08/27/2018 DELMAN DO, COLEMAN B Ot K21.9 GASTRO-ESOPHAGEAL REFLUX DISEASE WITHOUT 08/27/2018 DELMAN DO, COLEMAN B Ot Z11.2 ENCOUNTER FOR SCREENING FOR OTHER BACTER 08/27/2018 DELMAN DO, COLEMAN B Ot 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 ANGIOPLASTY IMPLANT 08/27/2018 DELMAN DO, COLEMAN B Ot C61 MALIGNANT NEOPLASM OF PROSTATE 08/27/2018 DELMAN DO, COLEMAN B Ot C7A.8 OTHER MALIGNANT NEUROENDOCRINE TUMORS 08/27/2018 DELMAN DO, COLEMAN B Ot E78.5 HYPERLIPIDEMIA, UNSPECIFIED 08/27/2018 DELMAN DO, COLEMAN B Ot I10 ESSENTIAL (PRIMARY) HYPERTENSION 08/27/2018 DELMAN DO, COLEMAN B Ot I25.10 ATHSCL HEART DISEASE OF [place] CORONARY 08/27/2018 DELMAN DO, COLEMAN B Ot I25.2 OLD MYOCARDIAL INFARCTION 08/27/2018 DELMAN DO, COLEMAN B Ot I48.0 PAROXYSMAL ATRIAL FIBRILLATION 08/27/2018 DELMAN DO, COLEMAN B Ot I65.29 OCCLUSION AND STENOSIS OF UNSPECIFIED CA 08/27/2018 GLENN GUEVARA DOIC B Ot I87.2 VENOUS INSUFFICIENCY (CHRONIC) (PERIPHER 08/27/2018 COLEMAN GUEVARA DO B Ot K21.9 GASTRO-ESOPHAGEAL [...] MD Ot I25.10 ATHSCL HEART DISEASE OF [place] CORONARY 08/28/2018 WILLIAM MILLER MD Ot N40.0 BENIGN PROSTATIC HYPERPLASIA WITHOUT LOW 08/28/2018 WILLIAM MILLER MD Ot Z79.82 CORRECTION (CURRENT) USE OF ASPIRIN 08/28/2018 WILLIAM MILLER MD Ot 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 08/28/2018 WILLIAM MILLER MD Ot 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 ANGIOPLASTY IMPLANT 08/28/2018 WILLIAM MILLER MD Ot N40.0 BENIGN PROSTATIC HYPERPLASIA WITHOUT LOW 08/29/2018 COLEMAN GEUVARA DO Ot C61 MALIGNANT NEOPLASM OF PROSTATE 08/29/2018 COLEMAN GUEVARA DO B Ot C7A.8 OTHER MALIGNANT NEUROENDOCRINE TUMORS 08/29/2018 COLEMAN GUEVARA DO B Ot E78.5 HYPERLIPIDEMIA, UNSPECIFIED 08/29/2018 GLENN GUEVARA DOIC B Ot I10 ESSENTIAL (PRIMARY) HYPERTENSION 08/29/2018 GLENN GUEVARA DOIC B Ot I25.10 ATHSCL HEART DISEASE OF [place] CORONARY 08/29/2018 COLEMAN GUEVARA DO B Ot I25.2 OLD MYOCARDIAL INFARCTION 08/29/2018 GLENN GUEVARA DOIC B Ot I48.0 PAROXYSMAL ATRIAL FIBRILLATION 08/29/2018 COLEMAN GUEVARA DO B Ot I65.29 OCCLUSION AND STENOSIS OF UNSPECIFIED CA 08/29/2018 GLENN GUEVARA DOIC B Ot I87.2 VENOUS INSUFFICIENCY (CHRONIC) (PERIPHER 08/29/2018 COLEMAN GUEVARA DO Ot K21.9 GASTRO-ESOPHAGEAL REFLUX DISEASE WITHOUT 08/29/2018 COLEMAN GUEVARA DO Ot Z11.2 ENCOUNTER FOR SCREENING FOR OTHER BACTER 08/29/2018 COLEMAN GUEVARA DO Ot 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 ANGIOPLASTY IMPLANT 08/29/2018 WILLIAM MILLER MD Ot C61 MALIGNANT NEOPLASM OF PROSTATE 08/29/2018 WILLIAM MILLER MD Ot C7A.8 OTHER MALIGNANT NEUROENDOCRINE TUMORS 08/29/2018 WILLIAM MILLER MD Ot E78.5 HYPERLIPIDEMIA, UNSPECIFIED 08/29/2018 WILLIAM MILLER MD Ot I10 ESSENTIAL (PRIMARY) HYPERTENSION 08/29/2018 WILLIAM MILLER MD Ot I25.10 ATHSCL HEART DISEASE OF [place] CORONARY 08/29/2018 WILLIAM MILLER MD Ot N40.0 BENIGN PROSTATIC HYPERPLASIA WITHOUT LOW 08/29/2018 JONATHAN MILLER MDNER Ot Z79.82 CORRECTION (CURRENT) USE OF ASPIRIN 08/29/2018 WILLIAM MILLER MD Ot Z79.899 OTHER CORRECTION (CURRENT) DRUG THERAPY 08/29/2018 WILLIAM MILLER MD Ot 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 ANGIOPLASTY IMPLANT 08/29/2018 WILLIAM MILLER MD Ot C61 MALIGNANT NEOPLASM OF PROSTATE 08/29/2018 WILLIAM MILLER MD Ot C7A.8 OTHER MALIGNANT NEUROENDOCRINE TUMORS 08/29/2018 WILLIAM MILLER MD Ot E78.5 HYPERLIPIDEMIA, UNSPECIFIED 08/29/2018 WILLIAM MILLER MD Ot I10 ESSENTIAL (PRIMARY) HYPERTENSION 08/29/2018 WILLIAM MILLER MD Ot I25.10 ATHSCL HEART DISEASE OF [place] CORONARY 08/29/2018 WILLIAM MILLER MD Ot N40.0 BENIGN PROSTATIC HYPERPLASIA WITHOUT LOW 08/29/2018 JONATHAN MILLER MDNER Ot Z79.82 CORRECTION (CURRENT) USE OF ASPIRIN 08/29/2018 JONATHAN MILLER MDNER Ot Z79.899 OTHER CORRECTION (CURRENT) DRUG THERAPY 08/29/2018 WILLIAM MILLER MD Ot 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 ANGIOPLASTY IMPLANT 08/30/2018 WILLIAM MILLER MD Ot C61 MALIGNANT NEOPLASM OF PROSTATE 08/30/2018 WILLIAM MILLER MD Ot C7A.8 OTHER MALIGNANT NEUROENDOCRINE TUMORS 08/30/2018 WILLIAM MILLER MD Ot E78.5 HYPERLIPIDEMIA, UNSPECIFIED 08/30/2018 WILLIAM MILLER MD Ot I10 ESSENTIAL (PRIMARY) HYPERTENSION 08/30/2018 WILLIAM MILLER MD Ot I25.10 ATHSCL HEART DISEASE OF [place] CORONARY 08/30/2018 WILLIAM MILLER MD Ot N40.0 BENIGN PROSTATIC HYPERPLASIA WITHOUT LOW 08/30/2018 WILLIAM MILLER MD Ot 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 08/30/2018 WILLIAM MILLER MD Ot 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 08/30/2018 WILLIAM MILLER MD Ot 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 ANGIOPLASTY IMPLANT 09/02/2018 WILLIAM MILLER MD Ot C61 MALIGNANT NEOPLASM OF PROSTATE 09/02/2018 WILLIAM MILLER MD Ot C7A.8 OTHER MALIGNANT NEUROENDOCRINE TUMORS 09/02/2018 WILLIAM MILLER MD Ot E78.5 HYPERLIPIDEMIA, UNSPECIFIED 09/02/2018 WILLIAM MILLER MD Ot I10 ESSENTIAL (PRIMARY) HYPERTENSION 09/02/2018 WILLIAM MILLER MD Ot I25.10 ATHSCL HEART DISEASE OF [place] CORONARY 09/02/2018 WILLIAM MILLER MD Ot N40.0 BENIGN PROSTATIC HYPERPLASIA WITHOUT LOW 09/02/2018 WILLIAM MILLER MD Ot Z79.82 CORRECTION (CURRENT) USE OF ASPIRIN 09/02/2018 WILLIAM MILLER MD Ot Z79.899 OTHER CORRECTION (CURRENT) DRUG THERAPY 09/02/2018 WILLIAM MILLER MD Ot 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 ANGIOPLASTY IMPLANT 09/13/2018 WILLIAM MILLER MD Ot N40.0 BENIGN PROSTATIC HYPERPLASIA WITHOUT LOW 09/14/2018 WILLIAM MILLER MD Ot N40.0 BENIGN PROSTATIC HYPERPLASIA WITHOUT LOW 09/23/2018 CARIDAD REDDING APRN Ot C61 MALIGNANT NEOPLASM OF PROSTATE 09/23/2018 CARIDAD REDDING APRN Ot E78.00 PURE HYPERCHOLESTEROLEMIA, UNSPECIFIED 09/23/2018 CARIDAD REDDING APRN Ot I10 ESSENTIAL (PRIMARY) HYPERTENSION 09/23/2018 CARIDAD REDDING APRN Ot I25.10 ATHSCL HEART DISEASE OF [place] CORONARY 09/23/2018 CARIDAD REDDING APRN Ot K21.9 GASTRO-ESOPHAGEAL REFLUX DISEASE WITHOUT 09/23/2018 CARIDAD REDDING APRN Ot K59.00 CONSTIPATION, UNSPECIFIED 09/23/2018 CARIDAD REDDING APRN Ot 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 09/23/2018 CARIDAD REDDING APRN Ot Z88.8 ALLERGY STATUS TO OT DRUG/MEDS/BIOL SUB 09/23/2018 CARIDAD REDDING APRN Ot Z92.21 PERSONAL HISTORY OF ANTINEOPLASTIC CHEMO 09/23/2018 CARIDAD REDDING APRN Ot 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 ANGIOPLASTY IMPLANT 09/23/2018 WILLIAM MILLER MD Ot N40.0 BENIGN PROSTATIC HYPERPLASIA WITHOUT LOW 09/23/2018 WILLIAM MILLER MD Ot C61 MALIGNANT NEOPLASM OF PROSTATE 09/23/2018 WILLIAM MILLER MD Ot C7A.8 OTHER MALIGNANT NEUROENDOCRINE TUMORS 09/23/2018 WILLIAM MILLER MD Ot E78.5 HYPERLIPIDEMIA, UNSPECIFIED 09/23/2018 WILLIAM MILLER MD Ot I10 ESSENTIAL (PRIMARY) HYPERTENSION 09/23/2018 WILLIAM MILLER MD Ot I25.10 ATHSCL HEART DISEASE OF [place] CORONARY 09/23/2018 WILLIAM MILLER MD Ot N40.0 BENIGN PROSTATIC HYPERPLASIA WITHOUT LOW 09/23/2018 JONATHAN MILLER MDNER Ot 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 09/23/2018 WILLIAM MILLER MD Ot Z79.899 OTHER CORRECTION (CURRENT) DRUG THERAPY 09/23/2018 WILLIAM MILLER MD Ot 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 ANGIOPLASTY IMPLANT 09/25/2018 WILLIAM MILLER MD Ot C61 MALIGNANT NEOPLASM OF PROSTATE 09/25/2018 WILLIAM MILLER MD Ot C7A.8 OTHER MALIGNANT NEUROENDOCRINE TUMORS 09/25/2018 WILLIAM MILLER MD Ot E78.5 HYPERLIPIDEMIA, UNSPECIFIED 09/25/2018 WILLIAM MILLER MD Ot I10 ESSENTIAL (PRIMARY) HYPERTENSION 09/25/2018 JONATHAN MILLER MDNER Ot I25.10 ATHSCL HEART DISEASE OF [place] CORONARY 09/25/2018 WILLIAM MILLER MD Ot N40.0 BENIGN PROSTATIC HYPERPLASIA WITHOUT LOW 09/25/2018 JONATHAN MILLER MDNER Ot Z79.82 CORRECTION (CURRENT) USE OF ASPIRIN 09/25/2018 JONATHAN MILLER MDNER Ot 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 09/25/2018 WILLIAM MILLER MD Ot 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 ANGIOPLASTY IMPLANT 09/26/2018 CARIDAD REDDING BIN FILLER Ot C61 MALIGNANT NEOPLASM OF PROSTATE 09/26/2018 CARIDAD REDDING APRN Ot E78.00 PURE HYPERCHOLESTEROLEMIA, UNSPECIFIED 09/26/2018 CARIDAD REDDING BIN FILLER Ot I10 ESSENTIAL (PRIMARY) HYPERTENSION 09/26/2018 CARIDAD REDDING BIN FILLER Ot I25.10 ATHSCL HEART DISEASE OF [place] CORONARY 09/26/2018 CARIDAD REDDING BIN FILLER Ot K21.9 GASTRO-ESOPHAGEAL REFLUX DISEASE WITHOUT 09/26/2018 CARIDAD REDDING APRN Ot K59.00 CONSTIPATION, UNSPECIFIED 09/26/2018 CARIDAD REDDING BIN FILLER Ot Z79.82 CORRECTION (CURRENT) USE OF ASPIRIN 09/26/2018 CARIDAD REDDING BIN FILLER Ot Z88.8 ALLERGY STATUS TO [facility] DRUG/MEDS/BIOL SUB 09/26/2018 CARIDAD REDDING BIN FILLER Ot Z92.21 PERSONAL HISTORY OF ANTINEOPLASTIC CHEMO 09/26/2018 CARIDAD REDDING APRN Ot 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 ANGIOPLASTY IMPLANT 10/16/2018 WILLIAM MILLER MD Ot C61 MALIGNANT NEOPLASM OF PROSTATE 10/16/2018 WILLIAM MILLER MD Ot C7A.8 OTHER MALIGNANT NEUROENDOCRINE TUMORS 10/16/2018 WILLIAM MILLER MD Ot E78.5 HYPERLIPIDEMIA, UNSPECIFIED 10/16/2018 WILLIAM MILLER MD Ot I10 ESSENTIAL (PRIMARY) HYPERTENSION 10/16/2018 WILLIAM MILLER MD Ot I25.10 ATHSCL HEART DISEASE OF [place] CORONARY 10/16/2018 WILLIAM MILLER MD Ot N40.0 BENIGN PROSTATIC HYPERPLASIA WITHOUT LOW 10/16/2018 WILLIAM MILLER MD Ot 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 10/16/2018 WILLIAM MILLER MD Ot 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 10/16/2018 WILLIAM MILLER MD Ot 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 ANGIOPLASTY IMPLANT 10/30/2018 WILLIAM MILLER MD Ot C61 MALIGNANT NEOPLASM OF PROSTATE 10/30/2018 WILLIAM MILLER MD Ot 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 BONE 11/06/2018 WILLIAM MILLER MD Ot C61 MALIGNANT NEOPLASM OF PROSTATE 11/06/2018 WILLIAM MILLER MD Ot C7A.8 OTHER MALIGNANT NEUROENDOCRINE TUMORS 11/06/2018 WILLIAM MILLER MD Ot E78.5 HYPERLIPIDEMIA, UNSPECIFIED 11/06/2018 WILLIAM MILLER MD Ot I10 ESSENTIAL (PRIMARY) HYPERTENSION 11/06/2018 WILLIAM MILLER MD Ot I25.10 ATHSCL HEART DISEASE OF [place] CORONARY 11/06/2018 WILLIAM MILLER MD Ot N40.0 BENIGN PROSTATIC HYPERPLASIA WITHOUT LOW 11/06/2018 JONATHAN MILLER MDNER Ot 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 11/06/2018 JONATHAN MILLER MDNER Ot 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 11/06/2018 WILLIAM MILLER MD Ot 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 ANGIOPLASTY IMPLANT 11/27/2018 WILLIAM MILLER MD Ot C61 MALIGNANT NEOPLASM OF PROSTATE 11/27/2018 WILLIAM MILLER MD Ot C7A.8 OTHER MALIGNANT NEUROENDOCRINE TUMORS 11/27/2018 WILLIAM MILLER MD Ot E78.5 HYPERLIPIDEMIA, UNSPECIFIED 11/27/2018 JONATHAN MILLER MDNER Ot I10 ESSENTIAL (PRIMARY) HYPERTENSION 11/27/2018 JONATHAN MILLER MDNER Ot I25.10 ATHSCL HEART DISEASE OF [place] CORONARY 11/27/2018 WILLIAM MILLER MD Ot N40.0 BENIGN PROSTATIC HYPERPLASIA WITHOUT LOW 11/27/2018 WILLIAM MILLER MD Ot 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 11/27/2018 WILLIAM MILLER MD Ot Z79.899 OTHER CORRECTION (CURRENT) DRUG THERAPY 11/27/2018 WILLIAM MILLER MD Ot 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 ANGIOPLASTY IMPLANT 11/27/2018 WILLIAM MILLER MD Ot C61 MALIGNANT NEOPLASM OF PROSTATE 11/27/2018 JONATHAN MILLER MDNER Ot C7A.8 OTHER MALIGNANT NEUROENDOCRINE TUMORS 11/27/2018 WILLIAM MILLER MD Ot E78.5 HYPERLIPIDEMIA, UNSPECIFIED 11/27/2018 WILLIAM MILLER MD Ot I10 ESSENTIAL (PRIMARY) HYPERTENSION 11/27/2018 JONATHAN MILLRE MDNER Ot I25.10 ATHSCL HEART DISEASE OF [place] CORONARY 11/27/2018 WILLIAM MILLER MD Ot N40.0 BENIGN PROSTATIC HYPERPLASIA WITHOUT LOW 11/27/2018 JONATHAN MILLER MDNER Ot Z79.82 CORRECTION (CURRENT) USE OF ASPIRIN 11/27/2018 JONATHAN MILLER MDNER Ot Z79.899 OTHER CORRECTION (CURRENT) DRUG THERAPY 11/27/2018 JONATHAN MILLER MDNER Ot 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 ANGIOPLASTY IMPLANT 11/28/2018 WILLIAM MILLER MD Ot C61 MALIGNANT NEOPLASM OF PROSTATE 11/28/2018 JONATHAN MILLER MDNER Ot C7A.8 OTHER MALIGNANT NEUROENDOCRINE TUMORS 11/28/2018 WILLIAM MILLER MD Ot E78.5 HYPERLIPIDEMIA, UNSPECIFIED 11/28/2018 WILLIAM MILLER MD Ot I10 ESSENTIAL (PRIMARY) HYPERTENSION 11/28/2018 WILLIAM MILLER MD Ot I25.10 ATHSCL HEART DISEASE OF [place] CORONARY 11/28/2018 WILLIAM MILLER MD Ot N40.0 BENIGN PROSTATIC HYPERPLASIA WITHOUT LOW 11/28/2018 WILLIAM MILLER MD Ot Z79.82 CORRECTION (CURRENT) USE OF ASPIRIN 11/28/2018 WILLIAM MILLER MD Ot Z79.899 OTHER CORRECTION (CURRENT) DRUG THERAPY 11/28/2018 WILLIAM MILLER MD Ot 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 ANGIOPLASTY IMPLANT 11/29/2018 WILLIAM MILLER MD Ot C61 MALIGNANT NEOPLASM OF PROSTATE 11/29/2018 WILLIAM MILLER MD Ot C7A.8 OTHER MALIGNANT NEUROENDOCRINE TUMORS 11/29/2018 WILLIAM MILLER MD Ot E78.5 HYPERLIPIDEMIA, UNSPECIFIED 11/29/2018 WILLIAM MILLER MD Ot I10 ESSENTIAL (PRIMARY) HYPERTENSION 11/29/2018 WILLIAM MILLER MD Ot I25.10 ATHSCL HEART DISEASE OF [place] CORONARY 11/29/2018 WILLIAM MILLER MD Ot N40.0 BENIGN PROSTATIC HYPERPLASIA WITHOUT LOW 11/29/2018 WILLIAM MILLER MD Ot 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 11/29/2018 WILLIAM MILLER MD Ot 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 11/29/2018 WILLIAM MILLER MD Ot 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 ANGIOPLASTY IMPLANT 12/11/2018 WILLIAM MILLER MD Ot C61 MALIGNANT NEOPLASM OF PROSTATE 12/11/2018 WILLIAM MILLER MD Ot C7A.8 OTHER MALIGNANT NEUROENDOCRINE TUMORS 12/11/2018 WILLIAM MILLER MD Ot E78.5 HYPERLIPIDEMIA, UNSPECIFIED 12/11/2018 WILLIAM MILLER MD Ot I10 ESSENTIAL (PRIMARY) HYPERTENSION 12/11/2018 WILLIAM MILLER MD Ot I25.10 ATHSCL HEART DISEASE OF [place] CORONARY 12/11/2018 WILLIAM MILLER MD Ot N40.0 BENIGN PROSTATIC HYPERPLASIA WITHOUT LOW 12/11/2018 WILLIAM MILLER MD Ot Z51.11 ENCOUNTER FOR ANTINEOPLASTIC CHEMOTHERAP 12/11/2018 WILLIAM MILLER MD Ot 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 12/11/2018 WILLIAM MILLER MD Ot Z79.899 OTHER CORRECTION (CURRENT) DRUG THERAPY 12/11/2018 WILLIAM MILLER MD Ot 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 ANGIOPLASTY IMPLANT 12/18/2018 WILLIAM MILLER MD Ot C61 MALIGNANT NEOPLASM OF PROSTATE 12/18/2018 WILLIAM MILLER MD Ot C7A.8 OTHER MALIGNANT NEUROENDOCRINE TUMORS 12/18/2018 WILLIAM MILLER MD Ot E78.5 HYPERLIPIDEMIA, UNSPECIFIED 12/18/2018 JONATHAN MILLER MDNER Ot I10 ESSENTIAL (PRIMARY) HYPERTENSION 12/18/2018 WILLIAM MILLER MD Ot I25.10 ATHSCL HEART DISEASE OF [place] CORONARY 12/18/2018 WILLIAM MILLER MD Ot N40.0 BENIGN PROSTATIC HYPERPLASIA WITHOUT LOW 12/18/2018 JONATHAN MILLER MDNER Ot Z51.11 ENCOUNTER FOR ANTINEOPLASTIC CHEMOTHERAP 12/18/2018 WILLIAM MILLER MD Ot 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 12/18/2018 WILLIAM MILLER MD Ot 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 12/18/2018 WILLIAM MILLER MD Ot 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 ANGIOPLASTY IMPLANT 01/10/2019 WILLIAM MILLER MD Ot C61 MALIGNANT NEOPLASM OF PROSTATE 01/10/2019 WILLIAM MILLER MD Ot 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 [place] 01/10/2019 WILLIAM MILLER MD Ot C61 MALIGNANT NEOPLASM OF PROST[place] 01/10/2019 WILLIAM MILLER MD Ot C7A.8 OTHER MALIGNANT NEUROENDOCRINE TUMORS 01/10/2019 WILLIAM MILLER MD Ot E78.5 HYPERLIPIDEMIA, UNSPECIFIED 01/10/2019 WILLIAM MILLER MD Ot I10 ESSENTIAL (PRIMARY) HYPERTENSION 01/10/2019 WILLIAM MILLER MD Ot I25.10 ATHSCL HEART DISEASE OF [place] CORONARY 01/10/2019 WILLIAM MILLER MD Ot N40.0 BENIGN PROSTATIC HYPERPLASIA WITHOUT LOW 01/10/2019 WILLIAM MILLER MD Ot Z51.11 ENCOUNTER FOR ANTINEOPLASTIC CHEMOTHERAP 01/10/2019 WILLIAM MILLER MD Ot 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 01/10/2019 WILLIAM MILLER MD Ot Z79.899 OTHER CORRECTION (CURRENT) DRUG THERAPY 01/10/2019 WILLIAM MILLER MD Ot 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 ANGIOPLASTY IMPLANT 01/13/2019 WILLIAM MILLER MD Ot C77.9 SECONDARY AND UNSP MALIGNANT NEOPLASM OF 01/13/2019 WILLIAM MILLER MD Ot 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 BONE 01/13/2019 WILLIAM MILLER MD Ot C80.1 MALIGNANT (PRIMARY) NEOPLASM, UNSPECIFIE 01/13/2019 WILLIAM MILLER MD Ot I67.82 CEREBRAL ISCHEMIA 01/13/2019 WILLIAM MILLER MD Ot K63.89 OTHER SPECIFIED DISEASES OF INTESTINE 01/14/2019 WILLIAM MILLER MD Ot C77.9 SECONDARY AND UNSP MALIGNANT NEOPLASM OF 01/14/2019 WILLIAM MILLER MD Ot 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 BONE 01/14/2019 WILLIAM MILLER MD Ot C80.1 MALIGNANT (PRIMARY) NEOPLASM, UNSPECIFIE 01/14/2019 WILLIAM MILLER MD Ot I67.82 CEREBRAL ISCHEMIA 01/14/2019 WILLIAM MILLER MD Ot K63.89 OTHER SPECIFIED DISEASES OF INTESTINE 01/14/2019 WILLIAM MILLER MD Ot C77.9 SECONDARY AND UNSP MALIGNANT NEOPLASM OF 01/14/2019 WILLIAM MILLER MD Ot 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 BONE 01/14/2019 WILLIAM MILLER MD Ot C80.1 MALIGNANT (PRIMARY) NEOPLASM, UNSPECIFIE 01/14/2019 WILLIAM MILLER MD Ot I67.82 CEREBRAL ISCHEMIA 01/14/2019 WILLIAM MILLER MD Ot K63.89 OTHER SPECIFIED DISEASES OF INTESTINE 01/14/2019 WILLIAM MILLER MD Ot C77.9 SECONDARY AND UNSP MALIGNANT NEOPLASM OF 01/14/2019 WILLIAM MILLER MD Ot 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 BONE 01/14/2019 WILLIAM MILLER MD Ot C80.1 MALIGNANT (PRIMARY) NEOPLASM, UNSPECIFIE 01/14/2019 WILLIAM MILLER MD Ot I67.82 CEREBRAL ISCHEMIA 01/14/2019 WILLIAM MILLER MD Ot K63.89 OTHER SPECIFIED DISEASES OF INTESTINE 02/26/2019 WILLIAM MILLER MD Ot C61 MALIGNANT NEOPLASM OF PROSTATE 02/26/2019 WILLIAM MILLER MD Ot C7A.8 OTHER MALIGNANT NEUROENDOCRINE TUMORS 02/26/2019 WILLIAM MILLER MD Ot E78.5 HYPERLIPIDEMIA, UNSPECIFIED 02/26/2019 WILLIAM MILLER MD Ot I10 ESSENTIAL (PRIMARY) HYPERTENSION 02/26/2019 WILLIAM MILLER MD Ot I25.10 ATHSCL HEART DISEASE OF [place] CORONARY 02/26/2019 WILLIAM MILLER MD Ot N40.0 BENIGN PROSTATIC HYPERPLASIA WITHOUT LOW 02/26/2019 WILLIAM MILLER MD Ot Z51.11 ENCOUNTER FOR ANTINEOPLASTIC CHEMOTHERAP 02/26/2019 WILLIAM MILLER MD Ot Z79.82 CORRECTION (CURRENT) USE OF ASPIRIN 02/26/2019 WILLIAM MILLER MD Ot Z79.899 OTHER CORRECTION (CURRENT) DRUG THERAPY 02/26/2019 WILLIAM MILLER MD Ot 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 ANGIOPLASTY IMPLANT 02/27/2019 WILLIAM MILLER MD Ot C61 MALIGNANT NEOPLASM OF PROSTATE 02/27/2019 WILLIAM MILLER MD Ot C7A.8 OTHER MALIGNANT NEUROENDOCRINE TUMORS 02/27/2019 WILLIAM MILLER MD Ot E78.5 HYPERLIPIDEMIA, UNSPECIFIED 02/27/2019 WILLIAM MILLER MD Ot I10 ESSENTIAL (PRIMARY) HYPERTENSION 02/27/2019 WILLIAM MILLER MD Ot I25.10 ATHSCL HEART DISEASE OF [place] CORONARY 02/27/2019 WILLIAM MILLER MD Ot N40.0 BENIGN PROSTATIC HYPERPLASIA WITHOUT LOW 02/27/2019 WILLIAM MILLER MD Ot Z51.11 ENCOUNTER FOR ANTINEOPLASTIC CHEMOTHERAP 02/27/2019 WILLIAM MILLER MD Ot Z79.82 CORRECTION (CURRENT) USE OF ASPIRIN 02/27/2019 WILLIAM MILLER MD Ot Z79.899 OTHER CORRECTION (CURRENT) DRUG THERAPY 02/27/2019 WILLIAM MILLER MD Ot 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 ANGIOPLASTY IMPLANT 03/04/2019 WILLIAM MILLER MD Ot C61 MALIGNANT NEOPLASM OF PROSTATE 03/04/2019 WILLIAM MILLER MD Ot C7A.8 OTHER MALIGNANT NEUROENDOCRINE TUMORS 03/04/2019 WILLIAM MILLER MD Ot E78.5 HYPERLIPIDEMIA, UNSPECIFIED 03/04/2019 WILLIAM MILLER MD Ot I10 ESSENTIAL (PRIMARY) HYPERTENSION 03/04/2019 WILLIAM MILLER MD Ot I25.10 ATHSCL HEART DISEASE OF [place] CORONARY 03/04/2019 WILLIAM MILLER MD Ot N40.0 BENIGN PROSTATIC HYPERPLASIA WITHOUT LOW 03/04/2019 WILLIAM MILLER MD Ot Z51.11 ENCOUNTER FOR ANTINEOPLASTIC CHEMOTHERAP 03/04/2019 WILLIAM MILLER MD Ot 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 03/04/2019 WILLIAM MILLER MD Ot Z79.899 OTHER CORRECTION (CURRENT) DRUG THERAPY 03/04/2019 WILLIAM MILLER MD Ot 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 ANGIOPLASTY IMPLANT 03/21/2019 WILLIAM MILLER MD Ot C61 MALIGNANT NEOPLASM OF PROSTATE 03/21/2019 WILLIAM MILLER MD Ot C7A.8 OTHER MALIGNANT NEUROENDOCRINE TUMORS 03/21/2019 WILLIAM MILLER MD Ot E78.5 HYPERLIPIDEMIA, UNSPECIFIED 03/21/2019 WILLIAM MILLER MD Ot I10 ESSENTIAL (PRIMARY) HYPERTENSION 03/21/2019 WILLIAM MILLER MD Ot I25.10 ATHSCL HEART DISEASE OF [place] CORONARY 03/21/2019 WILLIAM MILLER MD Ot N40.0 BENIGN PROSTATIC HYPERPLASIA WITHOUT LOW 03/21/2019 WILLIAM MILLER MD Ot Z51.11 ENCOUNTER FOR ANTINEOPLASTIC CHEMOTHERAP 03/21/2019 WILLIAM MILLER MD Ot 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 03/21/2019 WILLIAM MILLER MD Ot Z79.899 OTHER CORRECTION (CURRENT) DRUG THERAPY 03/21/2019 WILLIAM MILLER MD Ot 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 ANGIOPLASTY IMPLANT 04/17/2019 WILLIAM MILLER MD Ot C61 MALIGNANT NEOPLASM OF PROSTATE 04/17/2019 WILLIAM MILLER MD Ot 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 BONE 04/17/2019 WILLIAM MILLER MD Ot C77.9 SECONDARY AND UNSP MALIGNANT NEOPLASM OF 04/17/2019 WILLIAM MILLER MD Ot 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 BONE 04/17/2019 WILLIAM MILLER MD Ot C80.1 MALIGNANT (PRIMARY) NEOPLASM, UNSPECIFIE 04/17/2019 WILLIAM MILLER MD Ot I67.82 CEREBRAL ISCHEMIA 04/17/2019 WILLIAM MILLER MD Ot K63.89 OTHER SPECIFIED DISEASES OF INTESTINE 04/17/2019 WILLIAM MILLER MD Ot C61 MALIGNANT NEOPLASM OF PROSTATE 04/17/2019 WILLIAM MILLER MD Ot C7A.8 OTHER MALIGNANT NEUROENDOCRINE TUMORS 04/17/2019 WILLIAM MILLER MD Ot E78.5 HYPERLIPIDEMIA, UNSPECIFIED 04/17/2019 WILLIAM MILLER MD Ot I10 ESSENTIAL (PRIMARY) HYPERTENSION 04/17/2019 WILLIAM MILLER MD Ot I25.10 ATHSCL HEART DISEASE OF [place] CORONARY 04/17/2019 WILLIAM MILLER MD Ot N40.0 BENIGN PROSTATIC HYPERPLASIA WITHOUT LOW 04/17/2019 WILLIAM MILLER MD Ot Z51.11 ENCOUNTER FOR ANTINEOPLASTIC CHEMOTHERAP 04/17/2019 WILLIAM MILLER MD Ot Z79.82 CORRECTION (CURRENT) USE OF ASPIRIN 04/17/2019 WILLIAM MILLER MD, Ot 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 04/17/2019 WILLIAM MILLER MD Ot 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 ANGIOPLASTY IMPLANT 04/17/2019 WILLIAM MILLER MD Ot C61 MALIGNANT NEOPLASM OF PROSTATE 04/17/2019 WILLIAM MILLER MD, Ot C7A.8 OTHER MALIGNANT NEUROENDOCRINE TUMORS 04/17/2019 WILLIAM MILLER MD Ot E78.5 HYPERLIPIDEMIA, UNSPECIFIED 04/17/2019 WILLIAM MILLER MD Ot I10 ESSENTIAL (PRIMARY) HYPERTENSION 04/17/2019 WILLIAM MILLER MD, Ot I25.10 ATHSCL HEART DISEASE OF [place] CORONARY 04/17/2019 WILLIAM MILLER MD Ot N40.0 BENIGN PROSTATIC HYPERPLASIA WITHOUT LOW 04/17/2019 WILLIAM MILLER MD, Ot Z51.11 ENCOUNTER FOR ANTINEOPLASTIC CHEMOTHERAP 04/17/2019 WILLIAM MILLER MD, Ot Z79.82 CORRECTION (CURRENT) USE OF ASPIRIN 04/17/2019 WILLIAM MILLER MD, Ot 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 Results Test Result Range Methicillin resistant Staphylococcus aureus (MRSA) screening culture - 03/02/17 10:45 Methicillin resistant Staphylococcus aureus (MRSA) screening culture NEG NRG Methicillin resistant Staphylococcus aureus (MRSA) screening culture - 08/21/18 08:42 Methicillin resistant Staphylococcus aureus (MRSA) screening culture NEG NRG EKG - 03/20/19 14:19 EKG Complete Complete blood count (CBC) with automated white blood cell (WBC) differential - 04/22/19 01:50 Blood leukocytes automated count (number/volume) 6.3 10*3/uL 4.3-11.0 Blood erythrocytes automated count (number/volume) 4.13 10*6/uL 4.35-5.85 Venous blood hemoglobin measurement (mass/volume) 12.5 g/dL 13.3-17.7 Blood hematocrit (volume fraction) 38 % 40-54 Automated erythrocyte mean corpuscular volume 92 [foz_us] 80-99 Automated erythrocyte mean corpuscular hemoglobin (mass per erythrocyte) 30 pg 25-34 Automated erythrocyte mean corpuscular hemoglobin concentration measurement (mass/volume) 33 g/dL 32-36 Automated erythrocyte distribution width ratio 13.4 % 10.0- 14.5 Automated blood platelet count (count/volume) 200 10*3/uL 130-400 Automated blood platelet mean volume measurement 10.0 [foz_us] 7.4-10.4 Automated blood neutrophils/100 leukocytes 57 % 42-75 Automated blood lymphocytes/100 leukocytes 29 % 12-44 Blood monocytes/100 leukocytes 10 % 0-12 Automated blood eosinophils/100 leukocytes 4 % 0-10 Automated blood basophils/100 leukocytes 0 % 0-10 Blood neutrophils automated count (number/volume) 3.6 10*3 1.8-7.8 Blood lymphocytes automated count (number/volume) 1.8 10*3 1.0-4.0 Blood monocytes automated count (number/volume) 0.6 10*3 0.0- 1.0 Automated eosinophil count 0.2 10*3/uL 0.0-0.3 Automated blood basophil count (count/volume) 0.0 10*3/uL 0.0-0.1 PT panel in platelet poor plasma by coagulation assay - 04/22/19 01:50 Prothrombin time (PT) in platelet poor plasma by coagulation assay 12.9 s 12.2-14.7 INR in platelet poor plasma or blood by coagulation assay 0.9 0.8-1.4 Activated partial thromboplastin time (aPTT) in platelet poor plasma bycoagulation assay - 04/22/19 01:50 Activated partial thromboplastin time (aPTT) in platelet poor plasma bycoagulation assay 27 s 24-35 Comprehensive metabolic panel - 04/22/19 01:50 Serum or plasma sodium measurement (moles/volume) 138 mmol/L 135-145 Serum or plasma potassium measurement (moles/volume) 3.8 mmol/L 3.6-5.0 Serum or plasma chloride measurement (moles/volume) 103 mmol/L 98-107 Carbon dioxide 22 mmol/L 21-32 Serum or plasma anion gap determination (moles/volume) 13 mmol/L 5-14 Serum or plasma urea nitrogen measurement (mass/volume) 21 mg/dL 7-18 Serum or plasma creatinine measurement (mass/volume) 1.61 mg/dL 0.60-1.30 Serum or plasma urea nitrogen/creatinine mass ratio 13 NRG Serum or plasma creatinine measurement with calculation of estimated glomerular filtration rate 42 NRG Serum or plasma glucose measurement (mass/volume) 120 mg/dL 70-105 Serum or plasma calcium measurement (mass/volume) 9.4 mg/dL 8.5-10.1 Serum or plasma total bilirubin measurement (mass/volume) 0.3 mg/dL 0.1-1.0 Serum or plasma alkaline phosphatase measurement (enzymatic activity/volume) 118 U/L 40-136 Serum or plasma aspartate aminotransferase measurement (enzymatic activity/volume) 20 U/L 5-34 Serum or plasma alanine aminotransferase measurement (enzymatic activity/volume) 21 U/L 0-55 Serum or plasma protein measurement (mass/volume) 7.3 g/dL 6.4-8.2 Serum or plasma albumin measurement (mass/volume) 4.1 g/dL 3.2-4.5 CALCIUM CORRECTED 9.3 mg/dL 8.5-10.1 Magnesium - 04/22/19 01:50 Magnesium 2.0 mg/dL 1.8-2.4 Encounters ACCT No. Visit Date/Time Discharge Status Pt. Type Provider Facility Loc./Unit Complaint [id number] 03/28/2019 00:00:00 03/28/2019 10:28:00 DIS Outpatient COLEMAN GUEVARA [id number] 03/20/2019 13:33:00 03/20/2019 23:59:00 DIS Outpatient COLEMAN GUEVARA [id number] 03/27/2019 10:13:49 Document Registration [id number] 04/18/2019 14:38:00 04/18/2019 23:59:59 CLS Outpatient WILLIAM MILLER MD [facility] RAD SMALL CELL CARCINOMA [id number] 04/17/2019 08:20:00 04/17/2019 23:59:59 CLS Outpatient WILLIAM MILLER MD [facility] ONC [id number] 2019 08:35:00 02/26/2019 00:01:00 DIS Outpatient WILLIAM MILLER MD [facility] ONC [id number] 01/13/2019 07:35:00 01/13/2019 23:59:59 CLS Outpatient WILLIAM MILLER MD [facility] RAD SMALL CELL CARCINOMA,SECONDARY CANCER OF BONE [id number] 01/08/2019 10:12:00 01/08/2019 23:59:59 CLS Preadmit WILLIAM MILLER MD [facility] RAD SMALL CELL CARCINOMA,SECONDARY CA OF BONE [id number] 11/27/2018 09:24:00 11/27/2018 00:01:00 DIS Outpatient WILLIAM MILLER MD [facility] ONC [id number] 10/30/2018 08:53:00 10/30/2018 23:59:59 CLS Outpatient WILLIAM MILLER MD [facility] RAD SMALL CELL CARCINOMA,SECONDARY CA OF BONE [id number] 09/23/2018 11:13:00 09/23/2018 12:27:00 DIS Emergency CARIDAD REDDING APRN [facility] ER CANCER PT/NO BM FOR 5 DAYS [id number] 08/16/2018 08:13:00 08/29/2018 09:18:00 DIS Outpatient WILLIAM MILLER MD [facility] ONC [id number] 08/21/2018 08:33:00 08/21/2018 12:22:00 DIS Outpatient COLEMAN GUEVARA DO [facility] SDC SMALL NEUROENDOCRINE CANCER [id number] 08/20/2018 08:56:00 08/20/2018 23:59:59 CLS Outpatient WILLIAM MILLER MD [facility] RAD BENIGN PROSTATIC HYPERTROPHY [id number] 08/20/2018 15:22:00 08/20/2018 16:27:00 DIS Outpatient COLEMAN GUEVARA DO [facility] PREOP SMALL NEUROENDOCRINE CANCER [id number] 01/14/2018 10:02:00 01/14/2018 23:59:59 CLS Outpatient JUAN CARDENAS MD [facility] 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 [id number] 12/26/2017 12:42:00 12/26/2017 23:59:59 CLS Outpatient JP VEGA [facility] 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 [id number] 03/10/2017 08:48:00 03/10/2017 09:45:00 DIS Emergency NATALIA POSADA MD [facility] ER POSS POISON VERONA [id number] 03/07/2017 09:42:00 03/07/2017 14:08:00 DIS Outpatient CHAYA WOODSON MD [facility] DERANGEMENT OTHER MED MENISCUS R/T OLD TEAR/INJURY [id number] 03/02/2017 10:48:00 03/02/2017 11:35:00 DIS Outpatient CHAYA WOODSON MD [facility] PREOP RIGHT KNEE SCOPE [id number] 05/23/2016 14:15:00 05/23/2016 16:50:00 DIS Emergency DILMA CUNNINGHAM [facility] ER CONSTIPATION ABD PAIN [id number] 04/26/2016 11:42:00 04/26/2016 16:30:00 DIS Outpatient CHAYA WOODSON MD [facility] LEFT KNEE TORN MEDIAL MENISCUS [id number] 04/20/2016 11:52:00 04/20/2016 12:45:00 DIS Outpatient CHAYA WOODSON MD [facility] PREOP LEFT KNEE TORN MEDIAL MENISCUS [id number] 02/08/2015 10:55:00 02/08/2015 23:59:59 CLS Outpatient TENZIN CARTY MD [facility] RAD POI 480352/SWOLLEN PIP [id number] 10/15/2014 08:08:00 10/15/2014 23:59:59 CLS Outpatient JUAN CARDENAS MD [facility] CARD DELMY,HTN,HLP,PAF [id number] 03/14/2013 12:33:00 03/15/2013 10:56:00 DIS Inpatient JUAN CARDENAS MD [facility] CSD PAROXYOMAL A FIB [id number] 07/08/2019 09:15:00 PEN Preadmit WILLIAM MILLER MD [facility] RAD IMAGING STUDY TO RESTAGE NEOPLASM [id number] 04/22/2019 02:00:00 Document Registration [id number] 11/03/2015 09:05:00 Document Registration [id number] 10/15/2014 08:08:00 Document Registration [id number] 01/14/2013 09:00:00 Document Registration [id number] 10/15/2012 08:52:00 Document Registration [id number] 11/06/2011 07:01:00 Document Registration [id number] 11/01/2011 10:52:00 Document Registration [id number] 09/01/2011 11:10:00 Document Registration [id number] 08/01/2011 00:00:00 Document Registration [id number] 06/28/2011 09:16:00 Document Registration [id number] 05/02/2011 13:36:00 Document Registration [id number] 04/11/2011 11:05:00 Document Registration
[2019-04-22 02:42] LABS: TSH (THYROID ANALYZER) 9.38 UIU/ML (0.35-4.94)
[2019-04-22] MEDS ORDERED: NS IV 1000 ML 1,000 ML IV ONE (02:42)
[2019-04-22 03:05] LABS: BILIRUBIN,URINE NEGATIVE (NEGATIVE); CLARITY,URINE CLEAR; COLOR,URINE YELLOW; GLUCOSE, URINE (UA) NEGATIVE (NEGATIVE); KETONES,URINE NEGATIVE (NEGATIVE); LEUKOCYTE ESTERASE ,URINE NEGATIVE (NEGATIVE); NITRITE,URINE NEGATIVE (NEGATIVE); PH,URINE 5 (5-9); PROTEIN,URINE NEGATIVE (NEGATIVE); UROBILINOGEN,URINE NORMAL (NORMAL)
[2019-04-22 03:13] LABS: FREE T4 (FREE THYROXINE) 0.89 NG/DL (0.70-1.48)
[2019-04-22] MEDS ORDERED: APIXABAN 5 MG (ELIQUIS) TABLET PO ONE (03:15)
[2019-04-22] MEDS ORDERED: AMIODARONE FOR BOLUS 150 MG in D5W 100 ML IVPB 100 ML IV ONE (03:15)
[2019-04-22 03:22] LABS: BACTERIA,URINE TRACE /HPF; HYALINE CASTS, URINE RARE /LPF; SQUAMOUS EPITHELIAL CELL,UR 0-2 /HPF
--- NOTE | 2019-04-22 03:23 | ED Cardiac General ---
History of Present Illness General Chief Complaint: Cardiac/General Problems Stated Complaint: HEART PALPITATIONS Nursing Triage Note: rapid heart rate since 0030 Source: patient, family, old records Exam Limitations: no limitations History of Present Illness Date Seen by Provider: Apr 22, 2019 Time Seen by Provider: 01:45 Initial Comments This 74-year-old gentleman presents to the emergency room with complaints of palpitations upon waking at about 00:30. He did not have any chest pain or shortness of breath. He has a remote history of atrial fibrillation. He reports having a loop recorder placed years ago. The battery and it was not replaced because no arrhythmias were ever recorded according to his report. He is not presently on any rhythm controlling medications or anticoagulants. He was previously anticoagulated and treated with Multaq. Heart rate is noted to be around 150 and in atrial fibrillation. Patient reports finishing chemotherapy about 4 months ago. He has been treated for prostate cancer and neuroendocrine small cell cancer. His primary care provider is Dr. Carty. His electrical manager is Dr. Zhang. His oncologist is Dr. Pena. He had a CT scan of the abdomen and pelvis performed on Sunday. He does not know the results of that scan yet. Patient reports having some pain and difficulty with urination. Allergies and Home Medications Allergies Coded Allergies: Beta-Blockers (Beta-Adrenergic Bloc (Verified Allergy, Unknown, 09/02/18) Home Medications Aspirin 81 Mg Tablet., 81 MG PO DAILY, (Reported) Atorvastatin Calcium 40 Mg Tablet, 40 MG PO DAILY, (Reported) Cyclobenzaprine HCl 5 Mg Tablet, 5 MG PO TID, (Reported) Docusate Sodium 100 Mg Tablet, 100 MG PO DAILY, (Reported) Hydrochlorothiazide 25 Mg Tablet, 25 MG PO DAILY, (Reported) Hydrocodone Bit/Acetaminophen 1 Tab Tab, 1 TAB PO Q6H PRN for PAIN-MODERATE Prescribed by: COLEMAN GUEVARA on 08/21/18 1054 Losartan Potassium 100 Mg Tablet, 100 MG PO DAILY, (Reported) Multivitamin 1 Each Tablet, 1 EACH PO DAILY, (Reported) Collins-3/Dha/Epa/Fish Oil 1 Each Capsule, 1 EACH PO DAILY, (Reported) Pantoprazole Sodium 40 Mg Tablet., 40 MG PO DAILY, (Reported) Psyllium Husk 660 Gm Powder, 660 GM PO DAILY, (Reported) Tamsulosin HCl 0.4 Mg Cap.er.24h, 0.4 MG PO DAILY, (Reported) Patient Home Medication List Home Medication List Reviewed: Yes Review of Systems Review of Systems Constitutional: no symptoms reported EENTM: No Symptoms Reported Respiratory: No Symptoms Reported Cardiovascular: See HPI Gastrointestinal: No Symptoms Reported Genitourinary: See HPI Musculoskeletal: no symptoms reported Skin: no symptoms reported Psychiatric/Neurological: No Symptoms Reported Endocrine: No Symptoms Reported Hematologic/Lymphatic: See HPI Past Coaqlgh-Afjlfb-Psuouk Hx Past Med/Social Hx: Reviewed and Corrections made Patient Social History Alcohol Use: Denies Use Recreational Drug Use: No Smoking Status: Never a Smoker 2nd Hand Smoke Exposure: No Recent Foreign Travel: No Contact w/Someone Who Travel: No Recent Infectious Disease Expo: No Recent Hopitalizations: No Physical Abuse: No Sexual Abuse: No Mistreated: No Fear: No Immunizations Up To Date Tetanus Booster (TDap): Unknown Date of Pneumonia Vaccine: Oct 09, 2016 Date of Influenza Vaccine: Jul 15, 2018 Seasonal Allergies Seasonal Allergies: No Past Medical History Surgeries: Yes (EYELID, CYST REMOVED FROM JAWBONE, RIGHT CTR, BILAT KNEE, loop recorder) Coronary Stent, Eye Surgery Respiratory: No Cardiac: Yes (REVEAL RECORDER PLACED IN 2015, STENT 2010) Atrial Fibrillation (paroxysmal), Coronary Artery Disease, Heart Attack, High Cholesterol, Hypertension Neurological: No Reproductive Disorders: No Sexually Transmitted Disease: No HIV/AIDS: No Genitourinary: No Prostate Problems Gastrointestinal: Yes Gastroesophageal Reflux, Chronic Constipation Musculoskeletal: Yes (ELBOWS AND KNEES) Arthritis Endocrine: No HEENT: Yes Cataract Loss of Vision: Bilateral Hearing Impairment: Hard of Hearing, Bilateral Hearing Aide Cancer: Yes (neuroendocrine small cell cancer) Prostate Psychosocial: No Integumentary: No Blood Disorders: No Adverse Reaction/Blood Tranf: No (N/A) Family Medical History Reviewed Nursing Family Hx No Pertinent Family Hx Physical Exam Vital Signs Vital Signs - First Documented 04/22/19 01:39 Temp 97.1 Pulse 140 Resp 18 B/P (MAP) 146/109 (121) Pulse Ox 100 O2 Delivery Room Air Capillary Refill : Less Than 3 Seconds Height, Weight, BMI Height: 5'9.00" Weight: 190lbs. 6.0oz. [id number]; 27.4 BMI Method:Stated General Appearance: No Apparent Distress, WD/WN HEENT: Normal ENT Inspection, Pharynx Normal Neck: Normal Inspection Respiratory: Lungs Clear, Normal Breath Sounds, No Accessory Muscle Use, No Respiratory Distress Cardiovascular: No Edema, No Murmur, Irregularly Irregular, Tachycardia Gastrointestinal: Normal Bowel Sounds, Soft, Tenderness (suprapubic) Extremity: Normal Inspection, Non Tender, No Pedal Edema Neurologic/Psychiatric: Alert, Oriented x3, No Motor/Sensory Deficits, Normal Mood/Affect, planning lead II-XII Norm as Tested Skin: Normal Color, Warm/Dry Progress/Results/Core Measures Results/Orders Lab Results Laboratory Tests Test 04/22/19 01:50 04/22/19 02:39 Range/Units White Blood Count 6.3 4.3-11.0 10^3/uL Red Blood Count 4.13 L 4.35-5.85 10^6/uL Hemoglobin 12.5 L 13.3-17.7 G/DL Hematocrit 38 L 40-54 % Mean Corpuscular Volume 92 80-99 FL Mean Corpuscular Hemoglobin 30 25-34 PG Mean Corpuscular Hemoglobin Concent 33 32-36 G/DL Red Cell Distribution Width 13.4 10.0-14.5 % Platelet Count 200 130-400 10^3/uL Mean Platelet Volume 10.0 7.4-10.4 FL Neutrophils (%) (Auto) 57 42-75 % Lymphocytes (%) (Auto) 29 12-44 % Monocytes (%) (Auto) 10 0-12 % Eosinophils (%) (Auto) 4 0-10 % Basophils (%) (Auto) 0 0-10 % Neutrophils # (Auto) 3.6 1.8-7.8 X 10^3 Lymphocytes # (Auto) 1.8 1.0-4.0 X 10^3 Monocytes # (Auto) 0.6 0.0-1.0 X 10^3 Eosinophils # (Auto) 0.2 0.0-0.3 10^3/uL Basophils # (Auto) 0.0 0.0-0.1 10^3/uL Prothrombin Time 12.9 12.2-14.7 SEC INR Comment 0.9 0.8-1.4 Activated Partial Thromboplast Time 27 24-35 SEC Sodium Level 138 135-145 MMOL/L Potassium Level 3.8 3.6-5.0 MMOL/L Chloride Level 103 98-107 MMOL/L Carbon Dioxide Level 22 21-32 MMOL/L Anion Gap 13 5-14 MMOL/L Blood Urea Nitrogen 21 H 7-18 MG/DL Creatinine 1.61 H 0.60-1.30 MG/DL Estimat Glomerular Filtration Rate 42 BUN/Creatinine Ratio 13 Glucose Level 120 H 70-105 MG/DL Calcium Level 9.4 8.5-10.1 MG/DL Corrected Calcium 9.3 8.5-10.1 MG/DL Magnesium Level 2.0 1.8-2.4 MG/DL Total Bilirubin 0.3 0.1-1.0 MG/DL Aspartate Amino Transf (AST/SGOT) 20 5-34 U/L Alanine Aminotransferase (ALT/SGPT) 21 0-55 U/L Alkaline Phosphatase 118 40-136 U/L Myoglobin 44.9 10.0-92.0 NG/ML Troponin I < 0.028 <0.028 NG/ML Total Protein 7.3 6.4-8.2 GM/DL Albumin 4.1 3.2-4.5 GM/DL Free Thyroxine 0.89 0.70-1.48 NG/DL TSH [place] Testing 9.38 H 0.35-4.94 UIU/ML Urine Color YELLOW Urine Clarity CLEAR Urine pH 5 5-9 Urine Specific [place] 1.010 L 1.016-1.022 Urine Protein NEGATIVE NEGATIVE Urine Glucose (UA) NEGATIVE NEGATIVE Urine Ketones NEGATIVE NEGATIVE Urine Nitrite NEGATIVE NEGATIVE Urine Bilirubin NEGATIVE NEGATIVE Urine Urobilinogen NORMAL NORMAL MG/DL Urine Leukocyte Esterase NEGATIVE NEGATIVE Urine RBC (Auto) NEGATIVE NEGATIVE Urine RBC NONE /HPF Urine WBC NONE /HPF Urine Squamous Epithelial Cells 0-2 /HPF Urine Crystals NONE /LPF Urine Bacteria TRACE /HPF Urine Casts NONE /LPF Urine Hyaline Casts RARE /LPF Urine Mucus NEGATIVE /LPF Urine Culture Indicated NO My Orders Orders - YOLANDA AGUILAR MD Cbc With Automated Diff (04/22/19 01:45) Ed Iv/Invasive Line Start (04/22/19 01:45) Ekg Tracing (04/22/19 01:45) Monitor-Rhythm Ecg Trace Only (04/22/19 01:45) Chest 1 View, Ap/Pa Only (04/22/19 01:48) Cardiac Profile 1 (04/22/19 01:48) Myoglobin Serum (7/23/19 01:48) Protime With Inr (04/22/19 01:48) Partial Thromboplastin Time (04/22/19 01:48) O2 (04/22/19 01:48) Lipid Panel (04/23/19 06:00) Ns (Ivpb) (Sodium C... W/Diltiazem Iv Fo (04/22/19 02:00) Comprehensive Metabolic Panel (04/22/19 01:48) Magnesium (04/22/19 01:48) Thyroid Analyzer (04/22/19 02:04) Free T4 (Free Thyroxine) (04/22/19 01:50) Ns Iv 1000 Ml (Sodium Chloride 0.9%) (04/22/19 02:42) Ua Culture If Indicated (04/22/19 03:00) Amiodarone For Bolus (Cordarone Bolus) (04/22/19 03:15) Amiodarone Injection (Cordarone Injectio (04/22/19 03:15) Apixaban Tablet (Eliquis Tablet) (04/22/19 03:15) Medications Given in ED Current Medications Medications Dose Ordered Sig/Ely Route Start Time Stop Time Status Last Admin Dose Admin Amiodarone HCl 150 mg/Dextrose 103 ml @ 600 mls/hr ONCE ONCE IV 04/22/19 03:15 04/22/19 03:25 DC 04/22/19 03:29 600 MLS/HR Apixaban 5 mg ONCE ONCE PO 04/22/19 03:15 04/22/19 03:16 DC 04/22/19 03:29 5 MG Sodium Chloride 1,000 ml @ 0 mls/hr Q0M ONCE IV 04/22/19 02:42 04/22/19 02:44 DC 04/22/19 02:46 0 MLS/HR Vital Signs/I&O 04/22/19 04/22/19 04/22/19 01:39 01:39 01:58 Temp 97.1 Pulse 140 146 Resp 18 B/P (MAP) 146/109 (121) 117/95 Pulse Ox 100 100 94 O2 Delivery Room Air Room Air Room Air Blood Pressure Mean: 102 Progress Progress Note #1: Progress Note Patient was started on a Cardizem drip. This did reduce his heart rate but did not covert whose rhythm. Case was discussed with Dr. Duffy who requested continuation of Cardizem drip and the addition of amiodarone bolus and drip. He also requested anticoagulation with a Eliquis. These treatments were both administered in the ER. Echocardiogram was ordered for the morning. Patient was admitted to Dr. Carty. His bladder complaints were evaluated with urin alysis which was unremarkable and bladder scan which revealed only approximately 120 ML of residual urine. CT scan was reviewed. There were lesions suspicious for metastatic disease. I will leave communication of results to the primary team. Progress Note #2: Progress Note Prior to admission patient's heart rate improved to 80s to 110s. He was intermittently in atrial flutter. Initial ECG Impression Date: Apr 22, 2019 Initial ECG Impression Time: 01:43 Initial ECG Rate: 148 Initial ECG Rhythm: A Fib/Flutter Initial ECG Impression: Atrial Fibrillation w/RVR Comment Atrial fibrillation with RVR. Repolarization abnormality without ST elevation. Diagnostic Imaging Diagonstic Imaging: Xray Plain Films/CT/US/NM/MRI: chest Comments Chest x-ray viewed by me. Report not yet available. Compared with prior. No acute changes appreciated. Departure Communication (Admissions) Time/Spoke to Admitting Phy: 03:10 Dr. Carty Time/Spoke to Consulting Phy: 03:05 Dr. Duffy Impression Primary Impression: Atrial fibrillation with RVR Additional Impressions: Chronic kidney disease Qualified Codes: N18.9 - Chronic kidney disease, unspecified Abnormal computed tomography angiography (CTA) of abdomen and pelvis Dysuria Disposition: ADMITTED INPATIENT Condition: Improved Admissions Decision to Admit Reason: Admit from ER (General) Decision to Admit/Date: Apr 22, 2019 Time/Decision to Admit Time: 02:30 Departure-Patient Inst. Referrals: TENZIN CARTY MD (PCP/Family) Primary Care Physician YOLANDA AGUILAR MD Apr 22, 2019 03:23
--- NOTE | 2019-04-22 03:37 | NUR ---
sustainable agriculture specialist unable to take report.
[2019-04-22] MEDS: AMIODARONE INJECTION 450 MG in D5W IV SOLUTION (EXCEL) 250 ML IV SCH ×2 (03:45→12:58)
--- OUTSIDE RECORDS SUMMARY | 2019-04-22 03:53 | XMS REPORT | Continuity of Care Document ---
Author Organization Unknown Address Unknown Allergies Active Description Code Type Severity Reaction Onset Reported/Identified Relationship to Patient Clinical Status Yes NO KNOWN DRUG ALLERGIES UNKNOWN UNKNOWN Yes No Known Drug Allergies [id number] Drug Allergy Unknown N/A 08/20/2018 Yes Beta-Blockers (Beta-Adrenergic Bloc [id number] Drug Allergy Unknown N/A 09/02/2018 Medications Medication [...] MD Ot I25.10 ATHSCL HEART DISEASE OF [place] CORONARY WILLIAM MILLER MD Ot N40.0 BENIGN PROSTATIC HYPERPLASIA WITHOUT LOW WILLIAM MILLER MD Ot Z79.82 SKILLED NURSING (CURRENT) USE OF ASPIRIN WILLIAM MILLER MD Ot Z79.899 OTHER CURRICULUM ADVISORY TEACHER (CURRENT) DRUG THERAPY WILLIAM MILLER MD Ot [...] INFARCT 11/06/2011 Ot 414.01 CORONARY ATHEROSCLEROSIS OF [place] CORON 11/06/2011 Ot 427.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 NODE DYSFUNCT [...] CARDENAS MD Ot 414.01 CORONARY ATHEROSCLEROSIS OF [place] CORON 03/15/2013 JUAN CARDENAS MD Ot 427.31 [...] 01/18/2016 Ot I25.10 ATHSCL HEART DISEASE OF [place] CORONARY 01/18/2016 Ot I48.0 PAROXYSMAL ATRIAL FIBRILLATION 01/18/2016 Ot N28.9 DISORDER OF KIDNEY AND URETER, UNSPECIFI 01/18/2016 Ot R07.89 OTHER CHEST PAIN 01/18/2016 Ot Z79.899 OTHER SKILLED NURSING (CURRENT) DRUG THERAPY 01/18/2016 Ot Z98.61 CORONARY [...] Z01.818 ENCOUNTER FOR OTHER PREPROCEDURAL EXAMIN 04/21/2016 CAHYA WOODSON MD Ot Z11.2 ENCOUNTER FOR SCREENING [...] MD Ot I25.10 ATHSCL HEART DISEASE OF [place] CORONARY 03/07/2017 ZAFUTA MD, CHAYA P Ot I48.91 UNSPECIFIED ATRIAL FIBRILLATION 03/07/2017 CHAYA WOODSON MD Ot M22.41 CHONDROMALACIA PATELLAE, RIGHT KNEE 03/07/2017 CHAYA WOODSON MD Ot M23.8X1 OTHER INTERNAL DERANGEMENTS OF RIGHT KNE 03/07/2017 CHAYA WOODSON MD Ot Z79.899 OTHER CURRICULUM ADVISORY TEACHER (CURRENT) DRUG THERAPY 03/07/2017 CHAYA WOODSON MD Ot Z85.46 PERSONAL HISTORY OF MALIGNANT NEOPLASM O 03/07/2017 CHAYA WOODSON MD Ot 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 ANGIOPLASTY IMPLANT 03/08/2017 CHAYA WOODSON MD Ot E78.5 HYPERLIPIDEMIA, UNSPECIFIED 03/08/2017 CHAYA WOODSON MD Ot I10 ESSENTIAL (PRIMARY) HYPERTENSION 03/08/2017 CHAYA WOODSON MD Ot I25.10 ATHSCL HEART DISEASE OF [place] CORONARY 03/08/2017 CHAYA WOODSON MD Ot I48.91 UNSPECIFIED ATRIAL FIBRILLATION 03/08/2017 CHAYA WOODSON MD Ot M22.41 CHONDROMALACIA PATELLAE, RIGHT KNEE 03/08/2017 CHAYA WOODSON MD Ot M23.8X1 OTHER INTERNAL DERANGEMENTS OF RIGHT KNE 03/08/2017 CHAYA WOODSON MD Ot Z79.899 OTHER CURRICULUM ADVISORY TEACHER (CURRENT) DRUG THERAPY 03/08/2017 CHAYA WOODSON MD Ot Z85.46 PERSONAL HISTORY OF MALIGNANT NEOPLASM O 03/08/2017 CHAYA WOODSON MD Ot 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 ANGIOPLASTY IMPLANT 03/08/2017 CHAYA WOODSON MD Ot E78.5 HYPERLIPIDEMIA, UNSPECIFIED 03/08/2017 CHAYA WOODSON MD Ot I10 ESSENTIAL (PRIMARY) HYPERTENSION 03/08/2017 CHAYA WOODSON MD Ot I25.10 ATHSCL HEART DISEASE OF [place] CORONARY 03/08/2017 CHAYA WOODSON MD Ot I48.91 UNSPECIFIED ATRIAL FIBRILLATION 03/08/2017 CHAYA WOODSON MD Ot M22.41 CHONDROMALACIA PATELLAE, RIGHT KNEE 03/08/2017 CHAYA WOODSON MD Ot M23.8X1 OTHER INTERNAL DERANGEMENTS OF RIGHT KNE 03/08/2017 CHAYA WOODSON MD Ot Z79.899 OTHER CURRICULUM ADVISORY TEACHER (CURRENT) DRUG THERAPY 03/08/2017 CHAYA WOODSON MD, Ot Z85.46 PERSONAL HISTORY OF MALIGNANT NEOPLASM O 03/08/2017 CHAYA WOODSON MD, Ot 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 ANGIOPLASTY IMPLANT 03/09/2017 CHAYA WOODSON MD, Ot E78.5 HYPERLIPIDEMIA, UNSPECIFIED 03/09/2017 CHAYA WOODSON MD, Ot I10 ESSENTIAL (PRIMARY) HYPERTENSION 03/09/2017 CHAYA WOODSON MD, Ot I25.10 ATHSCL HEART DISEASE OF [place] CORONARY 03/09/2017 CHAYA WOODSON MD, Ot I48.91 UNSPECIFIED ATRIAL FIBRILLATION 03/09/2017 CHAYA WOODSON MD, Ot M22.41 CHONDROMALACIA PATELLAE, RIGHT KNEE 03/09/2017 CHAYA WOODSON MD, Ot M23.8X1 OTHER INTERNAL DERANGEMENTS OF RIGHT KNE 03/09/2017 CHAYA WOODSON MD, Ot Z79.899 OTHER SKILLED NURSING (CURRENT) DRUG THERAPY 03/09/2017 CHAYA WOODSON MD, [...] 03/10/2017 Ot I25.10 ATHSCL HEART DISEASE OF [place] CORONARY 03/10/2017 Ot I48.0 PAROXYSMAL ATRIAL FIBRILLATION 03/10/2017 Ot N28.9 DISORDER OF KIDNEY AND URETER, UNSPECIFI 03/10/2017 Ot R07.89 OTHER CHEST PAIN 03/10/2017 Ot Z79.899 OTHER CURRICULUM ADVISORY TEACHER (CURRENT) DRUG THERAPY 03/10/2017 Ot Z98.61 CORONARY [...] 01/11/2018 Ot I25.10 ATHSCL HEART DISEASE OF [place] CORONARY 01/11/2018 Ot I48.0 PAROXYSMAL ATRIAL FIBRILLATION 01/11/2018 Ot N28.9 DISORDER OF KIDNEY AND URETER, UNSPECIFI 01/11/2018 Ot R07.89 OTHER CHEST PAIN 01/11/2018 Ot Z79.899 OTHER SKILLED NURSING (CURRENT) DRUG THERAPY 01/11/2018 Ot Z98.61 CORONARY [...] 01/11/2018 Ot I25.10 ATHSCL HEART DISEASE OF [place] CORONARY 01/11/2018 Ot I48.0 PAROXYSMAL ATRIAL FIBRILLATION 01/11/2018 Ot N28.9 DISORDER OF KIDNEY AND URETER, UNSPECIFI 01/11/2018 Ot R07.89 OTHER CHEST PAIN 01/11/2018 Ot Z79.899 OTHER SKILLED NURSING (CURRENT) DRUG THERAPY 01/11/2018 Ot Z98.61 CORONARY [...] 08/15/2018 Ot I25.10 ATHSCL HEART DISEASE OF [place] CORONARY 08/15/2018 Ot I48.0 PAROXYSMAL ATRIAL FIBRILLATION 08/15/2018 Ot N28.9 DISORDER OF KIDNEY AND URETER, UNSPECIFI 08/15/2018 Ot R07.89 OTHER CHEST PAIN 08/15/2018 Ot Z79.899 OTHER CURRICULUM ADVISORY TEACHER (CURRENT) DRUG THERAPY 08/15/2018 Ot Z98.61 CORONARY [...] DO Ot I25.10 ATHSCL HEART DISEASE OF [place] CORONARY 08/21/2018 COLEMAN GUEVARA DO Ot I25.2 [...] B Ot I25.10 ATHSCL HEART DISEASE OF [place] CORONARY 08/27/2018 DELMAN DO, COLEMAN B Ot [...] OF CORONARY ANGIOPLASTY IMPLANT 08/27/2018 DELMAN DO, OCLEMAN B Ot C61 MALIGNANT NEOPLASM OF PROSTATE 08/27/2018 DELMAN DO, COLEMAN B Ot C7A.8 OTHER MALIGNANT NEUROENDOCRINE TUMORS 08/27/2018 DELMAN DO, COLEMAN B Ot E78.5 HYPERLIPIDEMIA, UNSPECIFIED 08/27/2018 DELMAN DO, COLEMAN B Ot I10 ESSENTIAL (PRIMARY) HYPERTENSION 08/27/2018 DELMAN DO, COLEMAN B Ot I25.10 ATHSCL HEART DISEASE OF [place] CORONARY 08/27/2018 DELMAN DO, COLEMAN B Ot I25.2 OLD MYOCARDIAL INFARCTION 08/27/2018 DELMAN DO, COLEMAN B Ot I48.0 PAROXYSMAL ATRIAL FIBRILLATION 08/27/2018 DELMAN DO, COLEMAN B Ot I65.29 OCCLUSION AND STENOSIS OF UNSPECIFIED CA 08/27/2018 GLENN GUEVARA DOIC B Ot I87.2 VENOUS INSUFFICIENCY (CHRONIC) (PERIPHER 08/27/2018 COLEMAN GUEVARA DO B Ot K21.9 GASTRO-ESOPHAGEAL REFLUX DISEASE WITHOUT 08/27/2018 GLENN GUEVRAA DOIC B Ot Z11.2 ENCOUNTER FOR SCREENING [...] MD Ot I25.10 ATHSCL HEART DISEASE OF [place] CORONARY 08/28/2018 WILLIAM MILLER MD Ot N40.0 BENIGN PROSTATIC HYPERPLASIA WITHOUT LOW 08/28/2018 WILLIAM MILLER MD Ot Z79.82 SKILLED NURSING (CURRENT) USE OF ASPIRIN 08/28/2018 WILLIAM MILLER MD Ot Z79.899 OTHER CURRICULUM ADVISORY TEACHER (CURRENT) DRUG THERAPY 08/28/2018 WILLIAM MILLER MD [...] B Ot I25.10 ATHSCL HEART DISEASE OF [place] CORONARY 08/29/2018 COLEMAN GUEVARA DO B Ot [...] MD Ot I25.10 ATHSCL HEART DISEASE OF [place] CORONARY 08/29/2018 WILLIAM MILLER MD Ot N40.0 BENIGN PROSTATIC HYPERPLASIA WITHOUT LOW 08/29/2018 JONATHAN MILELR MDNER Ot Z79.82 SKILLED NURSING (CURRENT) USE OF ASPIRIN 08/29/2018 WILLIAM MILLER MD Ot Z79.899 OTHER SKILLED NURSING (CURRENT) DRUG THERAPY 08/29/2018 WILLIAM MILLER MD Ot 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 ANGIOPLASTY IMPLANT 08/29/2018 WILLIAM MILLER MD Ot C61 MALIGNANT NEOPLASM OF PROSTATE 08/29/2018 WILLIAM MILLER MD Ot C7A.8 OTHER MALIGNANT NEUROENDOCRINE TUMORS 08/29/2018 WILLIAM MILLER MD Ot E78.5 HYPERLIPIDEMIA, UNSPECIFIED 08/29/2018 WILLIAM MILLER MD Ot I10 ESSENTIAL (PRIMARY) HYPERTENSION 08/29/2018 WILLIAM MILLER MD Ot I25.10 ATHSCL HEART DISEASE OF [place] CORONARY 08/29/2018 WILLIAM MILLER MD Ot N40.0 BENIGN PROSTATIC HYPERPLASIA WITHOUT LOW 08/29/2018 JONATHAN MILLER MDNER Ot Z79.82 SKILLED NURSING (CURRENT) USE OF ASPIRIN 08/29/2018 JONATHAN MILLER MDNER Ot Z79.899 OTHER SKILLED NURSING (CURRENT) DRUG THERAPY 08/29/2018 WILLIAM MILLER MD Ot 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 ANGIOPLASTY IMPLANT 08/30/2018 WILLIAM MILLER MD Ot C61 MALIGNANT NEOPLASM OF PROSTATE 08/30/2018 WILLIAM MILLER MD Ot C7A.8 OTHER MALIGNANT NEUROENDOCRINE TUMORS 08/30/2018 WILLIAM MILLER MD Ot E78.5 HYPERLIPIDEMIA, UNSPECIFIED 08/30/2018 WILLIAM MILLER MD Ot I10 ESSENTIAL (PRIMARY) HYPERTENSION 08/30/2018 WILLIAM MILLER MD Ot I25.10 ATHSCL HEART DISEASE OF [place] CORONARY 08/30/2018 WILLIAM MILLER MD Ot N40.0 BENIGN PROSTATIC HYPERPLASIA WITHOUT LOW 08/30/2018 WILLIAM MILLER MD Ot Z79.82 CURRICULUM ADVISORY TEACHER (CURRENT) USE OF ASPIRIN 08/30/2018 WILLIAM MILLER MD Ot Z79.899 OTHER CURRICULUM ADVISORY TEACHER (CURRENT) DRUG THERAPY 08/30/2018 WILLIAM MILLER MD Ot 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 ANGIOPLASTY IMPLANT 09/02/2018 WILLIAM MILLER MD Ot C61 MALIGNANT NEOPLASM OF PROSTATE 09/02/2018 WILLIAM MILLER MD Ot C7A.8 OTHER MALIGNANT NEUROENDOCRINE TUMORS 09/02/2018 WILLIAM MILLER MD Ot E78.5 HYPERLIPIDEMIA, UNSPECIFIED 09/02/2018 WILLIAM MILLER MD Ot I10 ESSENTIAL (PRIMARY) HYPERTENSION 09/02/2018 WILLIAM MILLER MD Ot I25.10 ATHSCL HEART DISEASE OF [place] CORONARY 09/02/2018 WILLIAM MILLER MD Ot N40.0 BENIGN PROSTATIC HYPERPLASIA WITHOUT LOW 09/02/2018 WILLIAM MILLER MD Ot Z79.82 SKILLED NURSING (CURRENT) USE OF ASPIRIN 09/02/2018 WILLIAM MILLER MD Ot Z79.899 OTHER SKILLED NURSING (CURRENT) DRUG THERAPY 09/02/2018 WILLIAM MILLER MD [...] APRN Ot I25.10 ATHSCL HEART DISEASE OF [place] CORONARY 09/23/2018 CARIDAD REDDING APRN Ot K21.9 GASTRO-ESOPHAGEAL REFLUX DISEASE WITHOUT 09/23/2018 CARIDAD REDDING APRN Ot K59.00 CONSTIPATION, UNSPECIFIED 09/23/2018 CARIDAD REDDING APRN Ot Z79.82 CURRICULUM ADVISORY TEACHER (CURRENT) USE OF ASPIRIN 09/23/2018 CARIDAD REDDING [...] MD Ot I25.10 ATHSCL HEART DISEASE OF [place] CORONARY 09/23/2018 WILLIAM MILLER MD Ot N40.0 BENIGN PROSTATIC HYPERPLASIA WITHOUT LOW 09/23/2018 JONATHAN MILLER MDNER Ot Z79.82 CURRICULUM ADVISORY TEACHER (CURRENT) USE OF ASPIRIN 09/23/2018 WILLIAM MILLER MD Ot Z79.899 OTHER SKILLED NURSING (CURRENT) DRUG THERAPY 09/23/2018 WILLIAM MILLER MD Ot 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 ANGIOPLASTY IMPLANT 09/25/2018 WILLIAM MILLER MD Ot C61 MALIGNANT NEOPLASM OF PROSTATE 09/25/2018 WILLIAM MILLER MD Ot C7A.8 OTHER MALIGNANT NEUROENDOCRINE TUMORS 09/25/2018 WILLIAM MILLER MD Ot E78.5 HYPERLIPIDEMIA, UNSPECIFIED 09/25/2018 WILLIAM MILLER MD Ot I10 ESSENTIAL (PRIMARY) HYPERTENSION 09/25/2018 JONATHAN MILLER MDNER Ot I25.10 ATHSCL HEART DISEASE OF [place] CORONARY 09/25/2018 WILLIAM MILLER MD Ot N40.0 BENIGN PROSTATIC HYPERPLASIA WITHOUT LOW 09/25/2018 JONATHAN MILLER MDNER Ot Z79.82 SKILLED NURSING (CURRENT) USE OF ASPIRIN 09/25/2018 JONATHAN MILLER MDNER Ot Z79.899 OTHER CURRICULUM ADVISORY TEACHER (CURRENT) DRUG THERAPY 09/25/2018 WILLIAM MILLER MD Ot 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 ANGIOPLASTY IMPLANT 09/26/2018 CARIDAD REDDING PAN PULLER Ot C61 MALIGNANT NEOPLASM OF PROSTATE 09/26/2018 CARIDAD REDDING APRN Ot E78.00 PURE HYPERCHOLESTEROLEMIA, UNSPECIFIED 09/26/2018 CARIDAD REDDING PAN PULLER Ot I10 ESSENTIAL (PRIMARY) HYPERTENSION 09/26/2018 CARIDAD REDDING PAN PULLER Ot I25.10 ATHSCL HEART DISEASE OF [place] CORONARY 09/26/2018 CARIDAD REDDING PAN PULLER Ot K21.9 GASTRO-ESOPHAGEAL REFLUX DISEASE WITHOUT 09/26/2018 CARIDAD REDDING APRN Ot K59.00 CONSTIPATION, UNSPECIFIED 09/26/2018 CARIDAD REDDING PAN PULLER Ot Z79.82 SKILLED NURSING (CURRENT) USE OF ASPIRIN 09/26/2018 CARIDAD REDDING PAN PULLER Ot Z88.8 ALLERGY STATUS TO [facility] DRUG/MEDS/BIOL SUB 09/26/2018 CARIDAD REDDING PAN PULLER Ot Z92.21 PERSONAL HISTORY OF ANTINEOPLASTIC CHEMO 09/26/2018 CARIDAD REDDING APRN Ot 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 ANGIOPLASTY IMPLANT 10/16/2018 WILLIAM MILLER MD Ot C61 MALIGNANT NEOPLASM OF PROSTATE 10/16/2018 WILLIAM MILLER MD Ot C7A.8 OTHER MALIGNANT NEUROENDOCRINE TUMORS 10/16/2018 WILLIAM MILLER MD Ot E78.5 HYPERLIPIDEMIA, UNSPECIFIED 10/16/2018 IWLLIAM MILLER MD Ot I10 ESSENTIAL (PRIMARY) HYPERTENSION 10/16/2018 WILLIAM MILLER MD Ot I25.10 ATHSCL HEART DISEASE OF [place] CORONARY 10/16/2018 WILLIAM MILLER MD Ot N40.0 BENIGN PROSTATIC HYPERPLASIA WITHOUT LOW 10/16/2018 WILLIAM MILLER MD Ot Z79.82 CURRICULUM ADVISORY TEACHER (CURRENT) USE OF ASPIRIN 10/16/2018 WILLIAM MILLER MD Ot Z79.899 OTHER SKILLED NURSING (CURRENT) DRUG THERAPY 10/16/2018 WILLIAM MILLER MD [...] MD Ot I25.10 ATHSCL HEART DISEASE OF [place] CORONARY 11/06/2018 WILLIAM MILLER MD Ot N40.0 BENIGN PROSTATIC HYPERPLASIA WITHOUT LOW 11/06/2018 JONATHAN MILLER MDNER Ot Z79.82 CURRICULUM ADVISORY TEACHER (CURRENT) USE OF ASPIRIN 11/06/2018 JONATHAN MILLER MDNER Ot Z79.899 OTHER CURRICULUM ADVISORY TEACHER (CURRENT) DRUG THERAPY 11/06/2018 WILLIAM MILLER MD Ot 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 ANGIOPLASTY IMPLANT 11/27/2018 WILLIAM MILLER MD Ot C61 MALIGNANT NEOPLASM OF PROSTATE 11/27/2018 WILLIAM MILLER MD Ot C7A.8 OTHER MALIGNANT NEUROENDOCRINE TUMORS 11/27/2018 WILLIAM MILLER MD Ot E78.5 HYPERLIPIDEMIA, UNSPECIFIED 11/27/2018 JONATHAN MILLER MDNER Ot I10 ESSENTIAL (PRIMARY) HYPERTENSION 11/27/2018 JONATHAN MILLER MDNER Ot I25.10 ATHSCL HEART DISEASE OF [place] CORONARY 11/27/2018 WILLIAM MILLER MD Ot N40.0 BENIGN PROSTATIC HYPERPLASIA WITHOUT LOW 11/27/2018 WILLIAM MILLER MD Ot Z79.82 CURRICULUM ADVISORY TEACHER (CURRENT) USE OF ASPIRIN 11/27/2018 WILLIAM MILLER MD Ot Z79.899 OTHER SKILLED NURSING (CURRENT) DRUG THERAPY 11/27/2018 WILLIAM MILLER MD Ot 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 ANGIOPLASTY IMPLANT 11/27/2018 WILLIAM MILLER MD Ot C61 MALIGNANT NEOPLASM OF PROSTATE 11/27/2018 JONATHAN MILLER MDNER Ot C7A.8 OTHER MALIGNANT NEUROENDOCRINE TUMORS 11/27/2018 WILLIAM MILLER MD Ot E78.5 HYPERLIPIDEMIA, UNSPECIFIED 11/27/2018 WILLIAM MILLER MD Ot I10 ESSENTIAL (PRIMARY) HYPERTENSION 11/27/2018 JONATHAN MILLER MDNER Ot I25.10 ATHSCL HEART DISEASE OF [place] CORONARY 11/27/2018 WILLIAM MILLER MD Ot N40.0 BENIGN PROSTATIC HYPERPLASIA WITHOUT LOW 11/27/2018 JONATHAN MILLER MDNER Ot Z79.82 SKILLED NURSING (CURRENT) USE OF ASPIRIN 11/27/2018 JONATHAN MILLER MDNER Ot Z79.899 OTHER SKILLED NURSING (CURRENT) DRUG THERAPY 11/27/2018 JONATHAN MILLER MDNER Ot 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 ANGIOPLASTY IMPLANT 11/28/2018 WILLIAM MILLER MD Ot C61 MALIGNANT NEOPLASM OF PROSTATE 11/28/2018 JONATHAN MILLER MDNER Ot C7A.8 OTHER MALIGNANT NEUROENDOCRINE TUMORS 11/28/2018 WILLIAM MILLER MD Ot E78.5 HYPERLIPIDEMIA, UNSPECIFIED 11/28/2018 WILLIAM MILLER MD Ot I10 ESSENTIAL (PRIMARY) HYPERTENSION 11/28/2018 WILLIAM MILLER MD Ot I25.10 ATHSCL HEART DISEASE OF [place] CORONARY 11/28/2018 WILLIAM MILLER MD Ot N40.0 BENIGN PROSTATIC HYPERPLASIA WITHOUT LOW 11/28/2018 WILLIAM MILLER MD Ot Z79.82 SKILLED NURSING (CURRENT) USE OF ASPIRIN 11/28/2018 WILLIAM MILLER MD Ot Z79.899 OTHER SKILLED NURSING (CURRENT) DRUG THERAPY 11/28/2018 WILLIAM MILLER MD Ot 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 ANGIOPLASTY IMPLANT 11/29/2018 WILLIAM MILLER MD Ot C61 MALIGNANT NEOPLASM OF PROSTATE 11/29/2018 WILLIAM MILLER MD Ot C7A.8 OTHER MALIGNANT NEUROENDOCRINE TUMORS 11/29/2018 WILLIAM MILLER MD Ot E78.5 HYPERLIPIDEMIA, UNSPECIFIED 11/29/2018 WILLIAM MILLER MD Ot I10 ESSENTIAL (PRIMARY) HYPERTENSION 11/29/2018 WILLIAM MILLER MD Ot I25.10 ATHSCL HEART DISEASE OF [place] CORONARY 11/29/2018 WILLIAM MILLER MD Ot N40.0 BENIGN PROSTATIC HYPERPLASIA WITHOUT LOW 11/29/2018 WILLIAM MILLER MD Ot Z79.82 CURRICULUM ADVISORY TEACHER (CURRENT) USE OF ASPIRIN 11/29/2018 WILLIAM MILLER MD Ot Z79.899 OTHER CURRICULUM ADVISORY TEACHER (CURRENT) DRUG THERAPY 11/29/2018 WILLIAM MILLER MD Ot 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 ANGIOPLASTY IMPLANT 12/11/2018 WILLIAM MILLER MD Ot C61 MALIGNANT NEOPLASM OF PROSTATE 12/11/2018 WILLIAM MILLER MD Ot C7A.8 OTHER MALIGNANT NEUROENDOCRINE TUMORS 12/11/2018 WILLIAM MILLER MD Ot E78.5 HYPERLIPIDEMIA, UNSPECIFIED 12/11/2018 WILLIAM MILLER MD Ot I10 ESSENTIAL (PRIMARY) HYPERTENSION 12/11/2018 WILLIAM MILLER MD Ot I25.10 ATHSCL HEART DISEASE OF [place] CORONARY 12/11/2018 WILLIAM MILLER MD Ot N40.0 BENIGN PROSTATIC HYPERPLASIA WITHOUT LOW 12/11/2018 WILLIAM MILLER MD Ot Z51.11 ENCOUNTER FOR ANTINEOPLASTIC CHEMOTHERAP 12/11/2018 WILLIAM MILLER MD Ot Z79.82 CURRICULUM ADVISORY TEACHER (CURRENT) USE OF ASPIRIN 12/11/2018 WILLIAM MILLER MD Ot Z79.899 OTHER SKILLED NURSING (CURRENT) DRUG THERAPY 12/11/2018 WILLIAM MILLER MD Ot 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 ANGIOPLASTY IMPLANT 12/18/2018 WILLIAM MILLER MD Ot C61 MALIGNANT NEOPLASM OF PROSTATE 12/18/2018 WILLIAM MILLER MD Ot C7A.8 OTHER MALIGNANT NEUROENDOCRINE TUMORS 12/18/2018 WILLIAM MILLER MD Ot E78.5 HYPERLIPIDEMIA, UNSPECIFIED 12/18/2018 JONATHAN MILLER MDNER Ot I10 ESSENTIAL (PRIMARY) HYPERTENSION 12/18/2018 WILLIAM MILLER MD Ot I25.10 ATHSCL HEART DISEASE OF [place] CORONARY 12/18/2018 WILLIAM MILLER MD Ot N40.0 BENIGN PROSTATIC HYPERPLASIA WITHOUT LOW 12/18/2018 JONATHAN MILLER MDNER Ot Z51.11 ENCOUNTER FOR ANTINEOPLASTIC CHEMOTHERAP 12/18/2018 WILLIAM MILLER MD Ot Z79.82 CURRICULUM ADVISORY TEACHER (CURRENT) USE OF ASPIRIN 12/18/2018 WILLIAM MILLER MD Ot Z79.899 OTHER CURRICULUM ADVISORY TEACHER (CURRENT) DRUG THERAPY 12/18/2018 WILLIAM MILLER MD [...] MD Ot I25.10 ATHSCL HEART DISEASE OF [place] CORONARY 01/10/2019 WILLIAM MILLER MD Ot N40.0 BENIGN PROSTATIC HYPERPLASIA WITHOUT LOW 01/10/2019 WILLIAM MILLER MD Ot Z51.11 ENCOUNTER FOR ANTINEOPLASTIC CHEMOTHERAP 01/10/2019 WILLIAM MILLER MD Ot Z79.82 CURRICULUM ADVISORY TEACHER (CURRENT) USE OF ASPIRIN 01/10/2019 WILLIAM MILLER MD Ot Z79.899 OTHER SKILLED NURSING (CURRENT) DRUG THERAPY 01/10/2019 WILLIAM MILLER MD [...] MD Ot I25.10 ATHSCL HEART DISEASE OF [place] CORONARY 02/26/2019 WILLIAM MILLER MD Ot N40.0 BENIGN PROSTATIC HYPERPLASIA WITHOUT LOW 02/26/2019 WILLIAM MILLER MD Ot Z51.11 ENCOUNTER FOR ANTINEOPLASTIC CHEMOTHERAP 02/26/2019 WILLIAM MILLER MD Ot Z79.82 SKILLED NURSING (CURRENT) USE OF ASPIRIN 02/26/2019 WILLIAM MILLER MD Ot Z79.899 OTHER SKILLED NURSING (CURRENT) DRUG THERAPY 02/26/2019 WILLIAM MILLER MD Ot 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 ANGIOPLASTY IMPLANT 02/27/2019 WILLIAM MILLER MD Ot C61 MALIGNANT NEOPLASM OF PROSTATE 02/27/2019 WILLIAM MILLER MD Ot C7A.8 OTHER MALIGNANT NEUROENDOCRINE TUMORS 02/27/2019 WILLIAM MILLER MD Ot E78.5 HYPERLIPIDEMIA, UNSPECIFIED 02/27/2019 WILLIAM MILLER MD Ot I10 ESSENTIAL (PRIMARY) HYPERTENSION 02/27/2019 WILLIAM MILLER MD Ot I25.10 ATHSCL HEART DISEASE OF [place] CORONARY 02/27/2019 WILLIAM MILLER MD Ot N40.0 BENIGN PROSTATIC HYPERPLASIA WITHOUT LOW 02/27/2019 WILLIAM MILLER MD Ot Z51.11 ENCOUNTER FOR ANTINEOPLASTIC CHEMOTHERAP 02/27/2019 WILLIAM MILLER MD Ot Z79.82 SKILLED NURSING (CURRENT) USE OF ASPIRIN 02/27/2019 WILLIAM MILLER MD Ot Z79.899 OTHER SKILLED NURSING (CURRENT) DRUG THERAPY 02/27/2019 WILLIAM MILLER MD Ot 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 ANGIOPLASTY IMPLANT 03/04/2019 WILLIAM MILLER MD Ot C61 MALIGNANT NEOPLASM OF PROSTATE 03/04/2019 WILLIAM MILLER MD Ot C7A.8 OTHER MALIGNANT NEUROENDOCRINE TUMORS 03/04/2019 WILLIAM MILLER MD Ot E78.5 HYPERLIPIDEMIA, UNSPECIFIED 03/04/2019 WILLIAM MILLER MD Ot I10 ESSENTIAL (PRIMARY) HYPERTENSION 03/04/2019 WILLIAM MILLER MD Ot I25.10 ATHSCL HEART DISEASE OF [place] CORONARY 03/04/2019 WILLIAM MILLER MD Ot N40.0 BENIGN PROSTATIC HYPERPLASIA WITHOUT LOW 03/04/2019 WILLIAM MILLER MD Ot Z51.11 ENCOUNTER FOR ANTINEOPLASTIC CHEMOTHERAP 03/04/2019 WILLIAM MILLER MD Ot Z79.82 CURRICULUM ADVISORY TEACHER (CURRENT) USE OF ASPIRIN 03/04/2019 WILLIAM MILLER MD Ot Z79.899 OTHER SKILLED NURSING (CURRENT) DRUG THERAPY 03/04/2019 WILLIAM MILLER MD Ot 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 ANGIOPLASTY IMPLANT 03/21/2019 WILLIAM MILLER MD Ot C61 MALIGNANT NEOPLASM OF PROSTATE 03/21/2019 WILLIAM MILLER MD Ot C7A.8 OTHER MALIGNANT NEUROENDOCRINE TUMORS 03/21/2019 WILLIAM MILLER MD Ot E78.5 HYPERLIPIDEMIA, UNSPECIFIED 03/21/2019 WILLIAM MILLER MD Ot I10 ESSENTIAL (PRIMARY) HYPERTENSION 03/21/2019 WILLIAM MILLER MD Ot I25.10 ATHSCL HEART DISEASE OF [place] CORONARY 03/21/2019 WILLIAM MILLER MD Ot N40.0 BENIGN PROSTATIC HYPERPLASIA WITHOUT LOW 03/21/2019 WILLIAM MILLER MD Ot Z51.11 ENCOUNTER FOR ANTINEOPLASTIC CHEMOTHERAP 03/21/2019 WILLIAM MILLER MD Ot Z79.82 CURRICULUM ADVISORY TEACHER (CURRENT) USE OF ASPIRIN 03/21/2019 WILLIAM MILLER MD Ot Z79.899 OTHER SKILLED NURSING (CURRENT) DRUG THERAPY 03/21/2019 WILLIAM MILLER MD [...] MD Ot I25.10 ATHSCL HEART DISEASE OF [place] CORONARY 04/17/2019 WILLIAM MLILER MD Ot N40.0 BENIGN PROSTATIC HYPERPLASIA WITHOUT LOW 04/17/2019 WILLIAM MILLER MD Ot Z51.11 ENCOUNTER FOR ANTINEOPLASTIC CHEMOTHERAP 04/17/2019 WILLIAM MILLER MD Ot Z79.82 SKILLED NURSING (CURRENT) USE OF ASPIRIN 04/17/2019 WILLIAM MILLER MD, Ot Z79.899 OTHER CURRICULUM ADVISORY TEACHER (CURRENT) DRUG THERAPY 04/17/2019 WILLIAM MILLER MD Ot 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 ANGIOPLASTY IMPLANT 04/17/2019 WILLIAM MILLER MD Ot C61 MALIGNANT NEOPLASM OF PROSTATE 04/17/2019 WILLIAM MILLER MD, Ot C7A.8 OTHER MALIGNANT NEUROENDOCRINE TUMORS 04/17/2019 WILLIAM MILLER MD Ot E78.5 HYPERLIPIDEMIA, UNSPECIFIED 04/17/2019 WILLIAM MILLER MD Ot I10 ESSENTIAL (PRIMARY) HYPERTENSION 04/17/2019 WILLIAM MILLER MD, Ot I25.10 ATHSCL HEART DISEASE OF [place] CORONARY 04/17/2019 WILLIAM MILLER MD Ot N40.0 BENIGN PROSTATIC HYPERPLASIA WITHOUT LOW 04/17/2019 WILLIAM MILLER MD, Ot Z51.11 ENCOUNTER FOR ANTINEOPLASTIC CHEMOTHERAP 04/17/2019 WLILIAM MILLER MD, Ot Z79.82 SKILLED NURSING (CURRENT) USE OF ASPIRIN 04/17/2019 WILLIAM MILLER MD, Ot Z79.899 OTHER 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 ADVISORY TEACHER (CURRENT) DRUG THERAPY 04/17/2019 WILLIAM MILLER MD, [...] - 04/22/19 01:50 Magnesium 2.0 mg/dL 1.8-2.4 Serum or plasma troponin i.cardiac measurement (mass/volume) - 04/22/19 01:50 Serum or plasma troponin i.cardiac measurement (mass/volume) < ng/mL <0.028 Myoglobin, serum - 04/22/19 01:50 Myoglobin, serum 44.9 ng/mL 10.0-92.0 Serum or plasma thyroxine (T4) free measurement (mass/volume) - 04/22/19 01:50 Serum or plasma thyroxine (T4) free measurement (mass/volume) 0.89 ng/dL 0.70-1.48 Serum or plasma thyrotropin measurement by detection limit <=0.05 miu/l (units/volume) - 04/22/19 01:50 Serum or plasma thyrotropin measurement by detection limit <=0.05 miu/l (units/volume) 9.38 u[iU]/mL 0.35-4.94 Complete urinalysis with reflex to culture - 04/22/19 02:39 Urine color determination YELLOW NRG Urine clarity determination CLEAR NRG Urine pH measurement by test strip 5 5-9 Specific gravity of urine by test strip 1.010 1.016-1.022 Urine protein assay by test strip, semi-quantitative NEGATIVE NEGATIVE Urine glucose detection by automated test strip NEGATIVE NEGATIVE Erythrocytes detection in urine sediment by light microscopy NEGATIVE NEGATIVE Urine ketones detection by automated test strip NEGATIVE NEGATIVE Urine nitrite detection by test strip NEGATIVE NEGATIVE Urine total bilirubin detection by test strip NEGATIVE NEGATIVE Urine urobilinogen measurement by automated test strip (mass/volume) NORMAL NORMAL Urine leukocyte esterase detection by dipstick NEGATIVE NEGATIVE Automated urine sediment erythrocyte count by microscopy (number/high power field) NONE NRG Automated urine sediment leukocyte count by microscopy (number/high power field) NONE NRG Bacteria detection in urine sediment by light microscopy TRACE NRG Squamous epithelial cells detection in urine sediment by light microscopy 0-2 NRG Crystals detection in urine sediment by light microscopy NONE NRG Casts detection in urine sediment by light microscopy NONE NRG Mucus detection in urine sediment by light microscopy NEGATIVE NRG Complete urinalysis with reflex to culture NO NRG Hyaline casts detection in urine sediment by light microscopy RARE NRG Encounters ACCT No. Visit Date/Time Discharge Status Pt. Type Provider Facility Loc./Unit Complaint [id number] 03/28/2019 00:00:00 03/28/2019 10:28:00 DIS Outpatient COLEMAN GUEVARA [id number] 03/20/2019 13:33:00 03/20/2019 23:59:00 DIS Outpatient COLEMAN GUEVARA [id number] 03/27/2019 10:13:49 Document Registration [id number] 04/18/2019 14:38:00 04/18/2019 23:59:59 CLS Outpatient WILLIAM MILLER MD [facility] RAD SMALL CELL CARCINOMA [id number] 04/17/2019 08:20:00 04/17/2019 23:59:59 CLS Outpatient WILLIAM MILLER MD [facility] ONC [id number] 2019 08:35:00 02/26/2019 00:01:00 DIS Outpatient WILLIAM MILLER MD [facility] ONC [id number] 01/13/2019 07:35:00 01/13/2019 23:59:59 CLS Outpatient WILLIAM MILLER MD [facility] RAD SMALL CELL CARCINOMA,SECONDARY CANCER OF BONE [id number] 01/08/2019 10:12:00 01/08/2019 23:59:59 CLS Preadmit WILLIAM MILLER MD [facility] RAD SMALL CELL CARCINOMA,SECONDARY CA OF BONE [id number] 11/27/2018 09:24:00 11/27/2018 00:01:00 DIS Outpatient WILLIAM MILLER MD [facility] ONC [id number] 10/30/2018 08:53:00 10/30/2018 23:59:59 CLS Outpatient WILLIAM MILLER MD [facility] RAD SMALL CELL CARCINOMA,SECONDARY CA OF BONE [id number] 09/23/2018 11:13:00 09/23/2018 12:27:00 DIS Emergency CARIDAD REDDING APRN [facility] ER CANCER PT/NO BM FOR 5 DAYS [id number] 08/16/2018 08:13:00 08/29/2018 09:18:00 DIS Outpatient WILLIAM MILLER MD [facility] ONC [id number] 08/21/2018 08:33:00 08/21/2018 12:22:00 DIS Outpatient COLEMAN GUEVARA DO [facility] SMALL NEUROENDOCRINE CANCER [id number] 08/20/2018 08:56:00 08/20/2018 23:59:59 CLS Outpatient WILLIAM MILLER MD [facility] RAD BENIGN PROSTATIC HYPERTROPHY [id number] 08/20/2018 15:22:00 08/20/2018 16:27:00 DIS Outpatient COLEMAN GUEVARA DO [facility] PREOP SMALL NEUROENDOCRINE CANCER [id number] 01/14/2018 10:02:00 01/14/2018 23:59:59 CLS Outpatient JUAN CARDENAS MD [facility] 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 [id number] 12/26/2017 12:42:00 12/26/2017 23:59:59 CLS Outpatient JP VEGA [facility] 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 [id number] 03/10/2017 08:48:00 03/10/2017 09:45:00 DIS Emergency NATALIA POSADA MD [facility] ER POSS POISON [place] [id number] 03/07/2017 09:42:00 03/07/2017 14:08:00 DIS Outpatient CHAYA WOODSON MD [facility] DERANGEMENT OTHER MED MENISCUS R/T OLD TEAR/INJURY [id number] 03/02/2017 10:48:00 03/02/2017 11:35:00 DIS Outpatient CHAYA WOODSON MD [facility] PREOP RIGHT KNEE SCOPE [id number] 05/23/2016 14:15:00 05/23/2016 16:50:00 DIS Emergency DILMA CUNNINGHAM [facility] ER CONSTIPATION ABD PAIN [id number] 04/26/2016 11:42:00 04/26/2016 16:30:00 DIS Outpatient CHAYA WOODSON MD [facility] SDC LEFT KNEE TORN MEDIAL MENISCUS [id number] 04/20/2016 11:52:00 04/20/2016 12:45:00 DIS Outpatient CHAYA WOODSON MD [facility] PREOP LEFT KNEE TORN MEDIAL MENISCUS [id number] 02/08/2015 10:55:00 02/08/2015 23:59:59 CLS Outpatient TENZIN CARTY MD [facility] RAD POI 791437/SWOLLEN PIP [id number] 10/15/2014 08:08:00 10/15/2014 23:59:59 CLS Outpatient JUAN CARDENAS MD [facility] CARD DELMY,HTN,HLP,PAF [id number] 03/14/2013 12:33:00 03/15/2013 10:56:00 DIS Inpatient JUAN CARDENAS MD [facility] CSD PAROXYOMAL A FIB [id number] 07/08/2019 09:15:00 PEN Preadmit WILLIAM MILLER MD [facility] RAD IMAGING STUDY TO RESTAGE NEOPLASM [id number] 04/22/2019 02:00:00 Document Registration [id number] 11/03/2015 09:05:00 Document Registration [id number] 10/15/2014 08:08:00 Document Registration [id number] 01/14/2013 09:00:00 Document Registration [id number] 10/15/2012 08:52:00 Document Registration [id number] 11/06/2011 07:01:00 Document Registration [id number] 11/01/2011 10:52:00 Document Registration [id number] 09/01/2011 11:10:00 Document Registration [id number] 08/01/2011 00:00:00 Document Registration [id number] 06/28/2011 09:16:00 Document Registration [id number] 05/02/2011 13:36:00 Document Registration [id number] 04/11/2011 11:05:00 Document Registration
--- NOTE | 2019-04-22 06:49 | Diagnostic Imaging Report ---
INDICATION: Tachycardia FINDINGS: Portable upright view of the chest demonstrate the lungs to be clear. Heart size and vascularity are normal. There are no pleural effusions. A portacatheter has its tip near the junction of the innominate vein and superior vena cava. A cardiac monitoring device is in place. IMPRESSION: There are no acute findings. Dictated by: Dictated on workstation # [id number]
--- NOTE | 2019-04-22 08:16 | History & Physicial ---
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 He has no significant history of any arrhythmias since then. He also does have a history of prostate cancer as well neuroendocrine CA He had most recently described dysuria and he has seen Dr. Pena and Dr Eubanks. He is awaiting result from recent CT scan of his abdomen and pelvis. Date of Admission Apr 22, 2019 at 03:15 Date Seen by a Provider: Apr 22, 2019 Time Seen by a Provider: 07:35 I consulted on this patient on 04/22/19 08:11 Attending Physician Jean Marie Carty MD Admitting Physician Jean Marie Carty MD Consult Allergies and Home Medications Allergies Coded Allergies: No Known Drug Allergies (Unverified , 04/22/19) Home Medications Aspirin 81 Mg Tablet.dr, 81 MG PO DAILY, (Reported) Docusate Sodium 100 Mg Tablet, 100 MG PO DAILY PRN for CONSTIPATION-1ST LINE, (Reported) Fish Oil/Dha/Epa 1 Each Capsule, 1,200 MG PO DAILY, (Reported) Losartan Potassium 100 Mg Tablet, 100 MG PO DAILY, (Reported) Multivit-Min/FA/Lycopene/Lut 1 Each Tablet, 1 TAB PO DAILY, (Reported) Pantoprazole Sodium 20 Mg Tablet.dr, 20 MG PO DAILY PRN for HEARTBURN, (Reported) Polyethylene Glycol 3350 17 Gm Powd.pack, 17 GM PO DAILY PRN for CONSTIPATION- 2ND LINE, (Reported) Tamsulosin HCl 0.4 Mg Cap, 0.4 MG PO 1730, (Reported) Patient Home Medication List Home Medication List Reviewed: Yes Past Mgtcdjc-Sghxqp-Szpowc Hx Patient Social History Marrital Status: Alcohol Use: Denies Use Recreational Drug Use: No Smoking Status: Never a Smoker 2nd Hand Smoke Exposure: No Recent Foreign Travel: No Contact w/other who traveled: No Recent Hopitalizations: No Recent Infectious Disease Expo: No Immunizations Up To Date Tetanus Booster (TDap): Unknown Date of Pneumonia Vaccine: Oct 01, 2017 Date of Influenza Vaccine: Jul 15, 2018 Seasonal Allergies Seasonal Allergies: No Surgeries Yes (EYELID, CYST REMOVED FROM JAWBONE, RIGHT CTR, BILAT KNEE, loop recorder) Coronary Stent, Eye Surgery Respiratory No Cardiovascular Yes (REVEAL RECORDER PLACED IN 2015, STENT 2010) Atrial Fibrillation (paroxysmal), Coronary Artery Disease, Heart Attack, High Cholesterol, Hypertension Neurological No Reproductive System Hx Reproductive Disorders: No Sexually Transmitted Disease: No HIV/AIDS: No Genitourinary No Prostate Problems Gastrointestinal Yes Gastroesophageal Reflux, Chronic Constipation Musculoskeletal Yes (ELBOWS AND KNEES) Arthritis Endocrine History of Endocrine Disorders: No HEENT History of HEENT Disorders: Yes HEENT Disorders: Cataract Loss of Vision: Bilateral Hearing Impairment: Hard of Hearing, Bilateral Hearing Aide 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 Psychosocial History of Psychiatric Problem: No Integumentary History of Skin or Integumenta: No Blood Transfusions History of Blood Disorders: No Adverse Reaction to a Blood Tr: No (N/A) Family Medical History Significant Family History: No Pertinent Family Hx Family Hx: FH: breast cancer 19 MOTHER, Onset:60 years & older FHx: stroke 19 FATHER, Onset:60 years & older Review of Systems Constitutional: see HPI Physical Exam Vital Signs Vital Signs - First Documented 04/22/19 01:39 Temp 97.1 Pulse 140 Resp 18 B/P (MAP) 146/109 (121) Pulse Ox 100 O2 Delivery Room Air Capillary Refill : Less Than 3 Seconds Height, Weight, BMI Height: 5'9.00" Weight: 190lbs. 6.0oz. 86.822661ku; 28.1 BMI Method:Stated General Appearance: No Apparent Distress HEENT: Pharynx Normal Neck: Supple Respiratory: Lungs Clear Cardiovascular: No Diastolic Murmur, No Systolic Murmur; Irregularly Irregular; No Tachycardia (currently) Gastrointestinal: Soft Rectal: Deferred Neurologic/Psychiatric: Alert, Oriented x3 Skin: Normal Color Comments NAME: ANDRES VAUGHAN MED REC#: [id number] PT STATUS: ADM IN : 1945 PHYSICIAN: YOLANDA AGUILAR MD ADMIT DATE: 04/22/19/ICU Signed Date of Exam: 04/22/19 CHEST 1 VIEW, AP/PA ONLY INDICATION: Tachycardia FINDINGS: Portable upright view of the chest demonstrate the lungs to be clear. Heart size and vascularity are normal. There are no pleural effusions. A portacatheter has its tip near the junction of the innominate vein and superior vena cava. A cardiac monitoring device is in place. IMPRESSION: There are no acute findings. Dictated by: Dictated on workstation # [id number] Dict: 04/22/19 0645 Trans: 04/22/19 1013 Interpreted by: SONAM HAMMOND MD Electronically signed by: SONAM HAMMOND MD 04/22/19 1013 Assessment/Plan Assessment and Plan 1. Atrial fibrillation with RVR -currently in ICU and his heart rate is now controlled after diltiazem drip -Cardiology consulted 2. History of prostate CA and neuroendocrine ca -Patient follows up with Dr Pena. 3. Dysuria--currently in workup -CT scans were recently performed 4. Elevated TSH at 9 -patient may quite possibly need to be on levothyroxine. Admission Diagnosis 1. Atrial fibrillation with RVR 2. History of prostate CA and neuroendocrine ca 3. Dysuria--currently in workup 4. Elevated TSH at 9 Admission Status: Observation Clinical Quality Measures DVT/VTE Risk/Contraindication: Risk Factor Score Per Nursin RFS Level Per Nursing on Admit: 2=Moderate JEAN MARIE CARTY MD Apr 22, 2019 08:16
[2019-04-22] MEDS: DILTIAZEM 125 MG/NS 100 ML IV SCH ×2 (09:25)
[2019-04-22] MEDS: APIXABAN 5 MG (ELIQUIS) TABLET PO SCH ×2 (09:25→20:31)
[2019-04-22] MEDS ORDERED: MULT-1029 PO (10:23)
[2019-04-22] MEDS ORDERED: TAMS0.4C98 PO (10:23)
[2019-04-22] MEDS ORDERED: FISH1CAP15 PO (10:23)
[2019-04-22] MEDS ORDERED: POLY17PO6 PO (10:23)
[2019-04-22] MEDS ORDERED: PANT20TA3 PO (10:29)
[2019-04-22] MEDS ORDERED: DILTIAZEM 120 MG (CARDIZEM CD) CAP PO ONE (10:41)
[2019-04-22] MEDS: DILTIAZEM 120 MG (CARDIZEM CD) CAP PO SCH (10:49)
--- NOTE | 2019-04-22 10:55 | NUR ---
Pastoral care visit.
--- NOTE | 2019-04-22 13:25 | Consultation-Cardiology ---
HPI-Cardiology Cardiology Consultation: Date of Consultation 04/22/19 Date of Admission Attending Physician Jean Marie Chan MD Admitting Physician Jean Marie Chan MD Consulting Physician Katharina DUFFY MD HPI: Time Seen by a Provider: 09:00 Chief Complaint: Atrial fibrillation with rapid ventricular rate This is a 74-year-old gentleman who presented to the ER with complains of palpitations. He denied any chest pain or shortness of breath. He has previous history of atrial fibrillation. He is not on oral anticoagulation therapy. He was previously on oral anti-coag ablation therapy and multaq. He was found to be in atrial fibrillation and rapid RVR. Patient also has history of neuroendocrine small cell cancer. Also has previous history of prostate cancer. 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 Review of Systems-Cardiology Review of Systems Constitutional: As described under HPI; No As described under HPI, No no sy mptoms reported, No chills, No fever, No lightheadedness Eyes: No As described under HPI, No no symptoms reported, No blindness, No blurred vision, No contact lenses, No drainage, No decreased acuity, No foreign body sensation, No pain, No vision change Ears/Nose/Throat: No As described under HPI, No no symptoms reported, No chronic hearing loss, No ear discharge, No ear pain, No nasal drainage, No ulcerations Respiratory: No no symptoms reported; As described under HPI; No As described under HPI, No cough, No orthopnea, No shortness of breath, No SOB with excertion Cardiovascular: No no symptoms reported; As described under HPI; No As described under HPI, No chest pain, No edema, No irregular heart rate, No lightheadedness; palpitations Gastrointestinal: No no symptoms reported, No As described under HPI, No abdomen distended, No abdominal pain, No blood streaked bowels, No constipation, No diarrhea, No nausea, No vomiting, No stool coloration changes Genitourinary: No As described under HPI, No burning, No dysuria, No discharge, No frequency, No flank pain, No hematuria, No urgency Skin: No rash, No skin related problems, No ulcerations Psychiatric/Neurological: No anxiety, No depression, No seizure, No focal w eakness, No syncope Hematologic: No bleeding abnormalities YHG-Apazht-Tyfyph Hx Patient Social History Marrital Status: Alcohol Use: Denies Use Recreational Drug Use: No Smoking Status: Never a Smoker 2nd Hand Smoke Exposure: No Recent Foreign Travel: No Recent Infectious Disease Expo: No Hospitalization with Isolation: Denies Immunizations Up To Date Tetanus Booster (TDap): Unknown Date of Pneumonia Vaccine: Oct 01, 2017 Date of Influenza Vaccine: Jul 15, 2018 Past Medical History PMH As described under Assessment. Family Medical History Family History: FH: breast cancer 19 MOTHER, Onset:60 years & older FHx: stroke 19 FATHER, Onset:60 years & older Allergies and Home Medications Allergies Coded Allergies: No Known Drug Allergies (Unverified , 04/22/19) Home Medications Aspirin 81 Mg Tablet.dr, 81 MG PO DAILY, (Reported) Docusate Sodium 100 Mg Tablet, 100 MG PO DAILY PRN for CONSTIPATION-1ST LINE, (Reported) Fish Oil/Dha/Epa 1 Each Capsule, 1,200 MG PO DAILY, (Reported) Losartan Potassium 100 Mg Tablet, 100 MG PO DAILY, (Reported) Multivit-Min/FA/Lycopene/Lut 1 Each Tablet, 1 TAB PO DAILY, (Reported) Pantoprazole Sodium 20 Mg Tablet.dr, 20 MG PO DAILY PRN for HEARTBURN, (Reported) Polyethylene Glycol 3350 17 Gm Powd.pack, 17 GM PO DAILY PRN for CONSTIPATION- 2ND LINE, (Reported) Tamsulosin HCl 0.4 Mg Cap, 0.4 MG PO 1730, (Reported) Patient Home Medication List Home Medication List Reviewed: Yes Physical Exam-Cardiology Physical Exam Vital Signs/I&O 04/22/19 04/22/19 04/22/19 04/22/19 01:39 01:39 01:58 04:39 Temp 97.1 97.2 Pulse 140 146 109 Resp 18 18 B/P (MAP) 146/109 (121) 117/95 108/79 (89) Pulse Ox 100 100 94 98 O2 Delivery Room Air Room Air Room Air Room Air 04/22/19 04/22/19 04/22/19 04/22/19 05:09 05:15 05:15 05:30 Temp 97.4 Pulse 126 128 124 Resp 16 15 14 B/P (MAP) 131/93 (106) 131/93 (106) 124/79 (94) Pulse Ox 99 98 99 O2 Delivery Room Air Room Air Room Air Room Air 7/2304/22/19 04/22/19 04/22/19 05:31 05:45 06:00 06:30 Pulse 126 110 89 84 Resp 15 15 17 B/P (MAP) 125/53 (77) 108/89 (95) 107/66 (80) Pulse Ox 97 98 97 O2 Delivery Room Air Room Air Room Air 04/22/19 04/22/19 04/22/19 04/22/19 07:00 07:00 07:30 08:00 Pulse 103 93 114 Resp 11 28 B/P (MAP) 119/84 (96) 121/79 (93) Pulse Ox 99 97 O2 Delivery Room Air Room Air Room Air 04/22/19 04/22/19 04/22/19 04/22/19 08:00 08:00 09:00 10:00 Temp 97.4 Pulse 93 89 53 Resp 20 14 6 B/P (MAP) 120/61 (80) 109/63 (78) 123/54 (77) Pulse Ox 98 99 99 O2 Delivery Room Air Room Air Room Air 04/22/19 04/22/19 04/22/19 04/22/19 11:00 12:00 12:00 12:00 Temp 97.0 Pulse 52 51 Resp 16 9 B/P (MAP) 132/68 (89) 136/70 (92) Pulse Ox 97 100 O2 Delivery Room Air Room Air Room Air 04/22/19 04/22/19 12:40 13:00 Pulse 51 65 Resp 31 B/P (MAP) 140/60 (86) O2 Delivery Room Air Capillary Refill : Less Than 3 Seconds Constitutional: appears stated age; No apparent distress; well-developed, well- nourished HEENT: PERRL; No normal ENT inspection, No TMs normal, No pharynx normal, No scleral icterus (R), No scleral icterus (L), No pale conjunctivae (R), No pale conjunctivae (L), No photophobia, No TM abnormal (R), No TM abnormal (L), No pharyngeal erythema, No tonsillar exudate, No other, No discharge, No EOMI; hearing is well preserved; No hard of hearing; oral hygience is good; No ulceration, No xanthelasmas are seen Neck: No non-tender, No full range of motion, No supple, No normal inspection, No carotid bruit, No limited range of motion, No lymphadenopathy (R), No lymphadenopathy (L), No tender lateral, No tender midline, No thyromegaly, No other; carotid pulses are 2 + bilaterally; No with good upstrokes Respiratory: No accessory muscle use, No respiratory distress, No chest tender, No chest expansion is symmetric; chest is bilaterally symmetric; No lungs clear to percussion; lungs clear to auscultation; No crackles, No rhonchi, No rales, No stridor, No wheezing, No pleural rub, No other Cardiovascular: irregularly irregular, tachycardia, S1 and S2 Gastrointestinal: No tender, No soft, No round, No distended, No pulsatile mass, No organomegaly, No guarding, No rebound, No tenderness, No hernia, No mass, No audible bowel sounds, No abnormal bowel sounds, No abdominal bruits, No spleenomegaly, No other Rectal: deferred Extremities: No normal range of motion, No non-tender, No normal inspection, No pedal edema, No calf tenderness, No normal capillary refill, No pelvis stable, No calf tenderness, No inflammation, No pedal edema, No slow capillary refill, No swelling, No other, No abrasion, No clubbing, No cyanosis, No ecchymosis, No laceration, No no lower extremity edema bilateral, No significant edema, No tenderness, No wound Neurologic/Psychiatric: no motor/sensory deficits, alert, normal mood/affect, oriented x 3, power is 5/5 both on sides Skin: No normal color, No warm/dry, No cyanosis, No cool, No diaphoresis, No damp, No ecchymosis, No jaundice, No mottled, No pallor, No rash, No tattoos/piercings, No ulcerations, No rash on exposed areas, No ulcerations on exposed areas, No other Data Review Labs Laboratory Tests 04/22/19 01:50: White Blood Count 6.3, Red Blood Count 4.13L, Hemoglobin 12.5L, Hematocrit 38L, Mean Corpuscular Volume 92, Mean Corpuscular Hemoglobin 30, Mean Corpuscular Hemoglobin Concent 33, Red Cell Distribution Width 13.4, Platelet Count 200, Mean Platelet Volume 10.0, Neutrophils (%) (Auto) 57, Lymphocytes (%) (Auto) 29, Monocytes (%) (Auto) 10, Eosinophils (%) (Auto) 4, Basophils (%) (Auto) 0, Neutrophils # (Auto) 3.6, Lymphocytes # (Auto) 1.8, Monocytes # (Auto) 0.6, Eosinophils # (Auto) 0.2, Basophils # (Auto) 0.0, Prothrombin Time 12.9, INR Comment 0.9, Activated Partial Thromboplast Time 27, Sodium Level 138, Potassium Level 3.8, Chloride Level 103, Carbon Dioxide Level 22, Anion Gap 13, Blood Urea Nitrogen 21H, Creatinine 1.61H, Estimat Glomerular Filtration Rate 42, BUN/Creatinine Ratio 13, Glucose Level 120H, Calcium Level 9.4, Corrected Calcium 9.3, Magnesium Level 2.0, Total Bilirubin 0.3, Aspartate Amino Transf (AST/SGOT) 20, Alanine Aminotransferase (ALT/SGPT) 21, Alkaline Phosphatase 118, Myoglobin 44.9, Troponin I < 0.028, Total Protein 7.3, Albumin 4.1, Free Thyroxine 0.89, TSH [place] Testing 9.38H 04/22/19 02:39: Urine Color YELLOW, Urine Clarity CLEAR, Urine pH 5, Urine Specific [place] 1.010L, Urine Protein NEGATIVE, Urine Glucose (UA) NEGATIVE, Urine Ketones NEGATIVE, Urine Nitrite NEGATIVE, Urine Bilirubin NEGATIVE, Urine Urobilinogen N ORMAL, Urine Leukocyte Esterase NEGATIVE, Urine RBC (Auto) NEGATIVE, Urine RBC NONE, Urine WBC NONE, Urine Squamous Epithelial Cells 0-2, Urine Crystals NONE, Urine Bacteria TRACE, Urine Casts NONE, Urine Hyaline Casts RARE, Urine Mucus NEGATIVE, Urine Culture Indicated NO ECG Impression ECG Initial ECG Impression: Atrial Fibrillation w/RVR A/P-Cardiology Assessment/Admission Diagnosis Atrial fibrillation with rapid ventricular rate, Neuroendocrine small cell cancer, Prostate cancer, HTN Plan Patient was started on IV amiodarone, Cardizem infusion and oral anti- coagulation. If the patient does not convert to sinus rhythm, we will consider transesophageal echocardiogram assisted cardioversion. If he converts, we will finish the bolus drip of amiodarone. Change Cardizem to by mouth. Continue oral anticoagulation and consider outpatient follow-up. HTN: Losartan. Defer management of Neuroendocrine cancer to Dr Pena. Thank you for your consultation. Please call me if you have any questions. Felix Duffy MD, FACP, FACC, FSCAI, FHRS, CCDS Interventional Cardiology Cardiac Electrophysiology Vascular Medicine and Endovascular Interventions Clinical Quality Measures DVT/VTE Risk/Contraindication: Risk Factor Score Per Nursin RFS Level Per Nursing on Admit: 2=Moderate Katharina DUFFY MD Apr 22, 2019 13:25
[2019-04-23] VITALS (10 sets, daily range): BP systolic 129–157; BP diastolic 68–135
[2019-04-23 03:55] LABS: CHOLESTEROL 143 MG/DL (< 200); HDL CHOLESTEROL 39 MG/DL (40-60); TRIGLYCERIDES 100 MG/DL (<150); VLDL CHOLESTEROL 20 MG/DL (5-40)
[2019-04-23] MEDS: DILTIAZEM 125 MG/NS 100 ML IV SCH ×2 (07:47)
[2019-04-23] MEDS ORDERED: DILTIAZEM 120 MG (CARDIZEM CD) CAP PO SCH (09:00)
[2019-04-23] MEDS: APIXABAN 5 MG (ELIQUIS) TABLET PO SCH (09:21)
[2019-04-23] MEDS: DILTIAZEM 120 MG (CARDIZEM CD) CAP PO SCH (09:21)
[2019-04-23] MEDS ORDERED: LEVO88TA54 PO (10:49)
[2019-04-23] MEDS ORDERED: DILT120C94 PO (10:49)
[2019-04-23] MEDS ORDERED: APIX5TAB PO (10:49)
--- NOTE | 2019-04-23 10:51 | Discharge Inst-Simple/Standard ---
Discharge Inst-Standard Discharge Medications New, Converted or Re-Newed RX: Transmitted to Pharmacy ([facility]) Patient Instructions/Follow Up Plan of Care/Instructions/FU: Dr Chan in [address] Pena for going over CT result. Dr Zhang May 2019 Activity as Tolerated: Yes Discharge Diet: Low Fat/Low Cholesterol (heart healthy) Return to The Hospital For: Irregular heart beat or fast heart rate TENZIN CHAN MD Apr 23, 2019 10:51
--- NOTE | 2019-04-23 10:57 | Discharge Summary ---
Diagnosis/Chief Complaint Date of Admission Apr 22, 2019 at 03:15 Date of Discharge April 23, 2019 Discharge Date: Apr 23, 2019 Discharge Time: 11:00 Admission Diagnosis Admission Diagnosis 1. Atrial fibrillation with RVR Discharge Diagnosis 1. Atrial fibrillation with RVR 2. 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 He has no significant history of any arrhythmias since then. He also does have a history of prostate cancer as well neuroendocrine CA He had most recently described dysuria and he has seen Dr. Pena and Dr Eubanks. He is awaiting result from recent CT scan of his abdomen and pelvis. Discharge Summary Hospital Course Was the Problem List Reviewed?: Yes Hospital Course Patient was admitted during the principal quality engineer of April 22, 2019 with atrial fibrillation. He was also noted to have rapid ventricular response. He initially was placed on iV amiodarone as well as Cardizem drip He had been started on oral anticoagulants as well. Patient responded well to the therapy i n the ICU. He was also seen by cardiology and ultimately he was placed on oral Cardizem on April 23, 2019. In the morning of April 23 he was noted to have a heart rate of 55 He was without any palpitations. He was also noted to have a TSH level of 9.38 and he was started on levothyroxine 88ug daily. He will be dismissed to home during the morning of April 23. He will follow-up with myself in one week and with cardiology in May when Dr. Moore here. He is making arrangements to see Dr Pena later this week to discuss his recent abdomen and pelvis that was performed last week. Labs Laboratory Tests 04/22/19 01:50: Red Blood Count 4.13L, Hemoglobin 12.5L, Hematocrit 38L, Blood Urea Nitrogen 21H , Creatinine 1.61H, Glucose Level 120H, TSH [place] Testing 9.38H 04/22/19 02:39: Urine Specific [place] 1.010L 04/23/19 03:15: HDL Cholesterol 39L Procedures None. Discharge Physical Examination Allergies: Coded Allergies: No Known Drug Allergies (Unverified , 04/22/19) Vitals & I&Os Vital Signs Date Time Temp Pulse Resp B/P (MAP) Pulse Ox O2 Delivery O2 Flow Rate FiO2 04/23/19 10:00 65 14 157/78 (104) 100 Room Air 04/23/19 04:45 97.0 General Appearance: Alert, No Acute Distress Respiratory: Clear to Auscultation Cardiovascular: Regular Rate Abdominal: Soft Skin: No Rashes Neuro: Normal Speech Psych/Mental Status: Mental Status NL Discharge Home Medications Reviewed and agree with Discharge Medication list on patient's Discharge Instruction sheet Instructions to Patient/Family Please see electronic discharge instructions given to patient. Clinical Quality Measures DVT/VTE Risk/Contraindication: Risk Factor Score Per Nursin RFS Level Per Nursing on Admit: 2=Moderate TENZIN CARTY MD Apr 23, 2019 10:57
--- NOTE | 2019-04-23 18:20 | Cardiology Progress Note ---
Cardiology SOAP Progress Note Subjective: No cardiac complaints. Objective: I&O/Vital Signs 04/23/19 04/23/19 04/23/19 04/23/19 07:00 07:00 08:00 08:00 Pulse 62 62 59 Resp 40 17 B/P (MAP) 137/107 (117) Pulse Ox 97 98 O2 Delivery Room Air Room Air Room Air 04/23/19 04/23/19 04/23/19 04/23/19 09:00 09:11 10:00 11:00 Pulse 58 65 56 Resp 20 14 18 B/P (MAP) 155/135 (142) 157/78 (104) Pulse Ox 99 100 98 O2 Delivery Room Air Room Air Room Air 04/23/19 00:00 Intake Total 780 ml Output Total 1200 ml Balance -420 ml Weight (Pounds): 182 Weight (Ounces): 1.0 Weight (Calculated Kilograms): 82.981578 Constitutional: appears stated age; No apparent distress; well-developed, well- nourished Respiratory: No accessory muscle use, No respiratory distress, No chest tender, No chest expansion is symmetric; chest is bilaterally symmetric; No lungs clear to percussion; lungs clear to auscultation; No crackles, No rhonchi, No rales, No stridor, No wheezing, No pleural rub, No other Cardiovascular: regular rate-rhythm, S1 and S2 Gastrointestional: No tender, No soft, No round, No distended, No pulsatile mass, No organomegaly, No guarding, No rebound, No tenderness, No hernia, No mass, No audible bowel sounds, No abnormal bowel sounds, No abdominal bruits, No spleenomegaly, No other Extremities: No normal range of motion, No non-tender, No normal inspection, No pedal edema, No calf tenderness, No normal capillary refill, No pelvis stable, No calf tenderness, No inflammation, No pedal edema, No slow capillary refill, No swelling, No other, No abrasion, No clubbing, No cyanosis, No ecchymosis, No laceration, No no lower extremity edema bilateral, No significant edema, No tenderness, No wound Neurologic/Psychiatric: no motor/sensory deficits, alert, normal mood/affect, oriented x 3, power is 5/5 both on sides Skin: No normal color, No warm/dry, No cyanosis, No cool, No diaphoresis, No damp, No ecchymosis, No jaundice, No mottled, No pallor, No rash, No tattoos/p iercings, No ulcerations, No rash on exposed areas, No ulcerations on exposed areas, No other Results/Procedures: Labs Laboratory Tests 04/23/19 03:15: Triglycerides Level 100, Cholesterol Level 143, LDL Cholesterol Direct 93, VLDL Cholesterol 20, HDL Cholesterol 39L A/P: Assessment/Dx: Atrial fibrillation with rapid ventricular rate, Neuroendocrine small cell cancer, Prostate cancer, HTN Plan: Patient converted to sinus rhythm. Amiodarone bolus completed. Patient will be discharged on oral anticoagulation therapy as well as Cardizem. Follow-up in the clinic. HTN: Losartan. Defer management of Neuroendocrine cancer to Dr Pena. Thank you for your consultation. Please call me if you have any questions. Felix Duffy MD, FACP, FACC, FSCAI, FHRS, CCDS Interventional Cardiology Cardiac Electrophysiology Vascular Medicine and Endovascular Interventions Katharina DUFFY MD Apr 23, 2019 18:20
[2019-04-24] MEDS ORDERED: LEVOTHYROXINE 88 MCG (LEVOTHORID) TAB PO SCH (06:30)
== END 2019-04-23 11:43 | disposition home or self-care (01) | DRG 310 ==
LOC: EDUNIT# 01:33 → ER 01:35 → ICU 03:15
PROVIDERS: ADMIT Family Medicine; ATTEND Family Medicine
DX: I48.0 Paroxysmal atrial fibrillation (principal); I48.92 Unspecified atrial flutter; I25.10 Atherosclerotic heart disease of native coronary artery without angina pectoris; I25.2 Old myocardial infarction; E78.00 Pure hypercholesterolemia, unspecified; I12.9 Hypertensive chronic kidney disease with stage 1 through stage 4 chronic kidney disease, or unspecified chronic kidney disease; N18.9 Chronic kidney disease, unspecified; K21.9 Gastro-esophageal reflux disease without esophagitis; E03.9 Hypothyroidism, unspecified; M19.021 Primary osteoarthritis, right elbow; M19.022 Primary osteoarthritis, left elbow; M17.0 Bilateral primary osteoarthritis of knee; Z85.118 Personal history of other malignant neoplasm of bronchus and lung; Z85.46 Personal history of malignant neoplasm of prostate; Z95.5 Presence of coronary angioplasty implant and graft
CPT/HCPCS: 36415; 71045; 80053; 80061; 81000; 83735; 83874; 84439; 84443; 84484; 85025; 85610; 85730; 93005; 93041; 93306; 96361; 96365; 96366; 96367; 96368

== ENCOUNTER → 2019-04-30 | Outpatient (CLI) | payer OTHER ==
[~2019-04-30] VITALS: Ht 175.3 cm; Wt 82.6 kg
[2019-04-30] VITALS (14 sets, daily range): BP systolic 149–195; BP diastolic 73–105
[~2019-04-30] MED LIST changes: +CATHETER FLUSH 10 ML SYR IV PRN; +DILT120C94 PO; +FISH1CAP15 PO; +HYDROcodone/APAP 5 MG/325 MG (LORTAB) TAB PO PRN; +LEVO88TA54 PO; +LIDOCAINE 1% INJ 20 ML 20 ML VIAL INJ ONE; +MIDAZOLAM 2 MG/2 ML (VERSED) VIAL IVP ONE; +MULT-1029 PO; +NS IV 1000 ML 1,000 ML IV STA; +PANT20TA3 PO; +POLY17PO6 PO; +TAMS0.4C98 PO; +fentaNYL INJECTION 100 MCG/2 ML AMP IVP ONE
[2019-04-30 08:16] LABS: HEMOGLOBIN 12.4 G/DL (13.3-17.7); MEAN PLATELET VOLUME 10.3 FL (7.4-10.4); RED CELL DISTRIBUTION WIDTH 13.1 % (10.0-14.5); WHITE BLOOD COUNT 5.3 10^3/uL (4.3-11.0)
[2019-04-30 08:30] LABS: PROTHROMBIN TIME PATIENT 13.2 SEC (12.2-14.7)
--- NOTE | 2019-04-30 11:50 | Pre-Op Note & Conscious Sedat ---
Pre-Operative Progress Note H&P Reviewed The H&P was reviewed, patient examined and no changes noted. Date H&P Reviewed: Apr 30, 2019 Time H&P Reviewed: 09:00 Pre-Op Diagnosis: Liver mass Conscious Sedation Pre-Proced Time 09:00 ASA Score 2 For ASA 3 and 4: Consider anesthesia and medical clearance. Also, for patients with a history of failed moderate sedation consider anesthesia. Airway Lungs Heart ASA score ASA 1: a normal healthy patient ASA 2: a patient with a mild systemic disease (mid diabetes, controlled hypertension, obesity ASA 3: a patient with a severe systemic disease that limits activity (angina, COPD, prior Myocardial infarction) ASA 4: a patient with an incapacitating disease that is a constant threat to life (CHF, renal failure) ASA 5: a moribund patient not expected to survive 24 hrs. (ruptured aneurysm) ASA 6: a declared brain- patient whose organs are being harvested. For emergent operations, add the letter E after the classification Mallampati Classification Grade 2 Sedation Plan Analgesia, Amnesia, Plan communicated to team members, Discussed options with patient/fam, Discussed risks with patient/fam The patient is an appropriate candidate to undergo the planned procedure, sedation, and anesthesia. The patient immediately re-assessed prior to indication. JAKUB GALLO MD Apr 30, 2019 11:50
--- NOTE | 2019-04-30 12:54 | Diagnostic Imaging Report ---
INDICATION: Right liver mass. Patient presents for CT-guided biopsy. TECHNIQUE: Patient was brought to CT suite, placed on table in the supine position. Axial imaging through the abdomen was performed to evaluate appropriate entry site. Patient was also given a small amount of IV contrast due to a liver lesion being nonvisible on noncontrast study. The procedure was performed utilizing conscious sedation with radiology nursing and constant patient monitoring. Patient was administered a total of 100 mcg of fentanyl intravenously and 1 mg of Versed intravenously. Procedure was extremely difficult due to the inability to see the small lesion in the right lobe of the liver as well as inconsistent respiration by the patient, creating a large amount of motion of the lesion. Despite this, 18-gauge coaxial Temno guide needle was advanced into the right lobe of the liver. The tip was placed in the expected location of the lesion. A total of three core biopsies were obtained. Needle was withdrawn during the injection of a small blood patch. Followup imaging was without complicating feature. IMPRESSION: CT-guided right lobe liver biopsy. The solitary liver lesion is not visible on noncontrast imaging and was very difficult to visualize today. If pathology results come back as normal liver, close followup will be needed to confirm stability of the lesion. Dictated by: Dictated on workstation # [id number]
== END ==
LOC: SDC 07:42
PROVIDERS: ATTEND Internal Medicine Hematology & Oncology
DX: C80.1 Malignant (primary) neoplasm, unspecified (principal); C79.51 Secondary malignant neoplasm of bone; R16.0 Hepatomegaly, not elsewhere classified
CPT/HCPCS: 36415; 77012; 85027; 85610; 85730; 99156; 99157

== ENCOUNTER → 2019-05-21 | Outpatient (CLI) | payer OTHER ==
[~2019-05-21] MED LIST changes: -CATHETER FLUSH 10 ML SYR IV PRN; -HYDROcodone/APAP 5 MG/325 MG (LORTAB) TAB PO PRN; -LIDOCAINE 1% INJ 20 ML 20 ML VIAL INJ ONE; -MIDAZOLAM 2 MG/2 ML (VERSED) VIAL IVP ONE; -NS IV 1000 ML 1,000 ML IV STA; -fentaNYL INJECTION 100 MCG/2 ML AMP IVP ONE
== END ==
LOC: LAB 08:21
PROVIDERS: ATTEND Family Medicine
DX: E03.8 Other specified hypothyroidism (principal)
CPT/HCPCS: 36415; 84443

== ENCOUNTER 2019-06-02 15:32 | Inpatient (IN) | payer MEDICARE, OTHER | END 2019-06-05 14:50 | disposition other institution (70) | LOC: ICU 06-04 13:09 → ER 15:32 → 4TH 17:23 | DX: A41.9 Sepsis, unspecified organism (principal); L03.031 Cellulitis of right toe; L03.115 Cellulitis of right lower limb; D70.1 Agranulocytosis secondary to cancer chemotherapy; C7A.1 Malignant poorly differentiated neuroendocrine tumors; C7B.8 Other secondary neuroendocrine tumors; N17.9 Acute kidney failure, unspecified; D69.6 Thrombocytopenia, unspecified; I12.9 Hypertensive chronic kidney disease with stage 1 through stage 4 chronic kidney disease, or unspecified chronic kidney disease; N18.9 Chronic kidney disease, unspecified; I25.10 Atherosclerotic heart disease of native coronary artery without angina pectoris; I25.2 Old myocardial infarction; I48.0 Paroxysmal atrial fibrillation; E78.00 Pure hypercholesterolemia, unspecified; K21.9 Gastro-esophageal reflux disease without esophagitis; K59.09 Other constipation; M19.021 Primary osteoarthritis, right elbow; M19.022 Primary osteoarthritis, left elbow; H91.93 Unspecified hearing loss, bilateral; Z95.5 Presence of coronary angioplasty implant and graft; Z97.4 Presence of external hearing-aid; Z96.653 Presence of artificial knee joint, bilateral; Z79.01 Long term (current) use of anticoagulants; Z92.3 Personal history of irradiation ==

== ENCOUNTER 2019-06-06 11:15 | Outpatient (RCR) | payer MEDICARE, OTHER ==
[~2019-06-06] VITALS: Ht 175.3 cm; Wt 86.7 kg
[~2019-06-06 11:15] MED LIST changes: +AMOX-358 PO; +DUCOSATE PO; +MORP15TA PO; +[UNRECOGNIZED DRUG - OTHER] PO
[2019-06-06 11:22] VITALS: BP 159/80
[2019-06-06] MEDS ORDERED: LIDOCAINE 1% INJ 20 ML 20 ML VIAL ONE (11:29)
[2019-06-06] MEDS ORDERED: cefTRIAXone 1,000 MG IV (ROCEPHIN) VIAL ONE (11:30)
[2019-06-06] MEDS: LIDOCAINE 1% INJ 20 ML 20 ML VIAL IJ SCH (11:45)
[2019-06-06] MEDS: cefTRIAXone 1,000 MG/2.86 ml vial (IM ONLY) IM SCH (11:45)
[2019-06-07] MEDS: cefTRIAXone 1,000 MG/2.86 ml vial (IM ONLY) IM SCH (10:27)
[2019-06-07] MEDS: LIDOCAINE 1% INJ 20 ML 20 ML VIAL IJ SCH (10:27)
[2019-06-07 10:33] VITALS: BP 169/87
[2019-06-08] MEDS: LIDOCAINE 1% INJ 20 ML 20 ML VIAL IJ SCH (15:20)
[2019-06-08 15:27] VITALS: BP 171/76
== END 2019-09-04 | disposition home or self-care (01) ==
LOC: SDC 11:15
PROVIDERS: ATTEND Family Medicine
DX: L03.115 Cellulitis of right lower limb (principal)
CPT/HCPCS: 96372

== ENCOUNTER → 2019-06-16 | Outpatient (CLI) | payer MEDICARE, OTHER | LOC: WOUNDCARE 08:05 | PROVIDERS: ATTEND Surgery | DX: L97.513 Non-pressure chronic ulcer of other part of right foot with necrosis of muscle (principal); B35.3 Tinea pedis; D72.810 Lymphocytopenia; D48.5 Neoplasm of uncertain behavior of skin | CPT/HCPCS: 11043 ==

== ENCOUNTER → 2019-06-23 | Outpatient (CLI) | payer MEDICARE, OTHER | LOC: WOUNDCARE 10:26 | PROVIDERS: ATTEND Surgery | DX: I96 Gangrene, not elsewhere classified (principal); L98.492 Non-pressure chronic ulcer of skin of other sites with fat layer exposed; B35.3 Tinea pedis; D48.5 Neoplasm of uncertain behavior of skin; D72.810 Lymphocytopenia | CPT/HCPCS: 99213 ==

== ENCOUNTER → 2019-06-30 | Outpatient (CLI) | payer MEDICARE, OTHER | LOC: WOUNDCARE 08:59 | PROVIDERS: ATTEND Surgery | DX: L97.512 Non-pressure chronic ulcer of other part of right foot with fat layer exposed (principal); B35.3 Tinea pedis; D48.5 Neoplasm of uncertain behavior of skin; D72.810 Lymphocytopenia; I96 Gangrene, not elsewhere classified | CPT/HCPCS: 99213 ==

== ENCOUNTER → 2019-07-07 | Outpatient (CLI) | payer MEDICARE, OTHER | LOC: WOUNDCARE 10:13 | PROVIDERS: ATTEND Surgery | DX: L97.512 Non-pressure chronic ulcer of other part of right foot with fat layer exposed (principal); B35.3 Tinea pedis; D48.5 Neoplasm of uncertain behavior of skin; D72.810 Lymphocytopenia; I96 Gangrene, not elsewhere classified | CPT/HCPCS: 99212 ==

== ENCOUNTER 2019-07-08 10:38 | Outpatient (RCR) | payer OTHER ==
[2019-04-17 08:49] LABS: BASOPHILS % (AUTO) 0 % (0-10); EOSINOPHILS # (AUTO) 0.1 10^3/uL (0.0-0.3); EOSINOPHILS % (AUTO) 2 % (0-10); HEMATOCRIT 40 % (40-54); HEMOGLOBIN 13.2 G/DL (13.3-17.7); LYMPHOCYTES # (AUTO) 1.1 X 10^3 (1.0-4.0); LYMPHOCYTES % (AUTO) 16 % (12-44); MEAN CORPUSCULAR HEMOGLOBIN 30 PG (25-34); MEAN CORPUSCULAR HGB CONC 33 G/DL (32-36); MEAN CORPUSCULAR VOLUME 91 FL (80-99); MEAN PLATELET VOLUME 10.2 FL (7.4-10.4); MONOCYTES # (AUTO) 0.6 X 10^3 (0.0-1.0); MONOCYTES % (AUTO) 9 % (0-12); NEUTROPHILS # (AUTO) 5.1 X 10^3 (1.8-7.8); NEUTROPHILS % (AUTO) 73 % (42-75); PLATELET COUNT 204 10^3/uL (130-400); RED CELL DISTRIBUTION WIDTH 13.4 % (10.0-14.5)
[2019-04-17 09:13] LABS: ALBUMIN 4.3 GM/DL (3.2-4.5); BILIRUBIN,TOTAL 0.6 MG/DL (0.1-1.0); CALCIUM 10.1 MG/DL (8.5-10.1); CREATININE SERUM 1.46 MG/DL (0.60-1.30); TOTAL PROTEIN 7.8 GM/DL (6.4-8.2)
[2019-05-21 09:07] LABS: BASOPHILS % (AUTO) 0 % (0-10); EOSINOPHILS # (AUTO) 0.3 10^3/uL (0.0-0.3); EOSINOPHILS % (AUTO) 5 % (0-10); HEMATOCRIT 37 % (40-54); LYMPHOCYTES # (AUTO) 0.5 X 10^3 (1.0-4.0); LYMPHOCYTES % (AUTO) 8 % (12-44); MEAN CORPUSCULAR HEMOGLOBIN 29 PG (25-34); MEAN CORPUSCULAR HGB CONC 32 G/DL (32-36); MEAN CORPUSCULAR VOLUME 91 FL (80-99); MEAN PLATELET VOLUME 9.9 FL (7.4-10.4); MONOCYTES # (AUTO) 0.5 X 10^3 (0.0-1.0); MONOCYTES % (AUTO) 9 % (0-12); NEUTROPHILS # (AUTO) 4.5 X 10^3 (1.8-7.8); NEUTROPHILS % (AUTO) 78 % (42-75); PLATELET COUNT 173 10^3/uL (130-400); RED CELL DISTRIBUTION WIDTH 13.7 % (10.0-14.5); WHITE BLOOD COUNT 5.9 10^3/uL (4.3-11.0)
[2019-05-21 09:24] LABS: ALBUMIN 3.9 GM/DL (3.2-4.5); BILIRUBIN,TOTAL 0.7 MG/DL (0.1-1.0); CALCIUM 9.4 MG/DL (8.5-10.1); CREATININE SERUM 1.58 MG/DL (0.60-1.30); POTASSIUM 3.7 MMOL/L (3.6-5.0); TOTAL PROTEIN 7.3 GM/DL (6.4-8.2)
[2019-05-28 14:14] LABS: BASOPHILS % (AUTO) 1 % (0-10); EOSINOPHILS % (AUTO) 1 % (0-10); HEMATOCRIT 36 % (40-54); LYMPHOCYTES # (AUTO) 0.3 X 10^3 (1.0-4.0); LYMPHOCYTES % (AUTO) 15 % (12-44); MEAN CORPUSCULAR HEMOGLOBIN 30 PG (25-34); MEAN CORPUSCULAR HGB CONC 33 G/DL (32-36); MEAN CORPUSCULAR VOLUME 89 FL (80-99); MEAN PLATELET VOLUME 10.4 FL (7.4-10.4); MONOCYTES % (AUTO) 1 % (0-12); NEUTROPHILS # (AUTO) 1.6 X 10^3 (1.8-7.8); NEUTROPHILS % (AUTO) 84 % (42-75); PLATELET COUNT 107 10^3/uL (130-400); RED CELL DISTRIBUTION WIDTH 13.1 % (10.0-14.5)
[2019-05-28 14:30] LABS: CALCIUM 8.7 MG/DL (8.5-10.1); CREATININE SERUM 1.18 MG/DL (0.60-1.30)
[2019-06-11 09:49] LABS: BASOPHILS % (AUTO) 0 % (0-10); EOSINOPHILS % (AUTO) 0 % (0-10); HEMATOCRIT 27 % (40-54); HEMOGLOBIN 8.7 G/DL (13.3-17.7); LYMPHOCYTES # (AUTO) 0.4 X 10^3 (1.0-4.0); LYMPHOCYTES % (AUTO) 7 % (12-44); MEAN CORPUSCULAR HEMOGLOBIN 30 PG (25-34); MEAN CORPUSCULAR HGB CONC 33 G/DL (32-36); MEAN CORPUSCULAR VOLUME 91 FL (80-99); MEAN PLATELET VOLUME 11.8 FL (7.4-10.4); MONOCYTES # (AUTO) 0.7 X 10^3 (0.0-1.0); MONOCYTES % (AUTO) 13 % (0-12); NEUTROPHILS # (AUTO) 4.1 X 10^3 (1.8-7.8); NEUTROPHILS % (AUTO) 79 % (42-75); PLATELET COUNT 140 10^3/uL (130-400); RED CELL DISTRIBUTION WIDTH 14.3 % (10.0-14.5); WHITE BLOOD COUNT 5.1 10^3/uL (4.3-11.0)
[2019-06-11 10:10] LABS: ALBUMIN 3.4 GM/DL (3.2-4.5); BILIRUBIN,TOTAL 0.4 MG/DL (0.1-1.0); CALCIUM 8.8 MG/DL (8.5-10.1); CREATININE SERUM 1.84 MG/DL (0.60-1.30); POTASSIUM 3.4 MMOL/L (3.6-5.0); TOTAL PROTEIN 6.5 GM/DL (6.4-8.2)
[2019-07-02 08:56] LABS: BASOPHILS % (AUTO) 0 % (0-10); EOSINOPHILS # (AUTO) 0.1 10^3/uL (0.0-0.3); EOSINOPHILS % (AUTO) 1 % (0-10); HEMATOCRIT 28 % (40-54); HEMOGLOBIN 9.1 G/DL (13.3-17.7); LYMPHOCYTES # (AUTO) 0.7 X 10^3 (1.0-4.0); LYMPHOCYTES % (AUTO) 9 % (12-44); MEAN CORPUSCULAR HEMOGLOBIN 30 PG (25-34); MEAN CORPUSCULAR HGB CONC 32 G/DL (32-36); MEAN CORPUSCULAR VOLUME 92 FL (80-99); MONOCYTES # (AUTO) 0.8 X 10^3 (0.0-1.0); MONOCYTES % (AUTO) 10 % (0-12); NEUTROPHILS % (AUTO) 79 % (42-75); PLATELET COUNT 231 10^3/uL (130-400); RED CELL DISTRIBUTION WIDTH 15.2 % (10.0-14.5); WHITE BLOOD COUNT 7.5 10^3/uL (4.3-11.0)
[2019-07-02 09:17] LABS: ALBUMIN 3.5 GM/DL (3.2-4.5); BILIRUBIN,TOTAL 0.5 MG/DL (0.1-1.0); CALCIUM 9.2 MG/DL (8.5-10.1); CREATININE SERUM 1.66 MG/DL (0.60-1.30); POTASSIUM 3.6 MMOL/L (3.6-5.0)
[~2019-07-08] VITALS: Ht 175.3 cm; Wt 87.1 kg
[~2019-07-08 10:38] MED LIST changes: +ATEZOLIZUMAB 1,200 MG in NS (IVPB) CANCER CENTER 250 ML IV SCH; -BARIUM SUSPENSION 2.1% (VANILLA SILQ) 450 ML PO ONE; +CARBOPLATIN IV SCH; -CATHETER FLUSH 10 ML SYR IV PRN; +CYANOCOBALAMIN INJ 1000 MCG/ML (CANCER CENTER) ONE; +D5W IV SCH; +DEXAMETHASONE IV SCH; +ETOPOSIDE 200 MG in NORMAL SALINE (CANCER CENTER) 500 ML IV SCH; +FOSAPREPITANT DIMEGLUMINE 150 MG in NS (IVPB) CANCER CENTER ONLY 150 ML IV SCH; -GADOBUTROL 7.5 MMOL/7.5 ML (GADAVIST) VIAL IV ONE; -HOLD METFORMIN - RECEIVED CONTRAST 20 ML VIAL IV SCH; -IOHEXOL 350 MG/ML 100 ML (OMNIPAQUE 350) VIAL IV ONE; -NS 100 ML (IVPB) BAG IV ONE; +NS IV 1000 ML (CANCER CTR) IV SCH; +NS IV 500 ML (CANCER CENTER) 500 ML ONE; +ONDANSETRON IV SCH; +PALONOSETRON HCL 0.25 MG, DEXAMETHASONE INJECTION 10 MG in NS (IVPB) CANCER CENTER 50 ML IV SCH; +[UNRECOGNIZED DRUG - OTHER] IV SCH
[2019-07-08 10:51] LABS: BASOPHILS % (AUTO) 0 % (0-10); EOSINOPHILS # (AUTO) 0.1 10^3/uL (0.0-0.3); EOSINOPHILS % (AUTO) 2 % (0-10); HEMATOCRIT 27 % (40-54); HEMOGLOBIN 8.9 G/DL (13.3-17.7); LYMPHOCYTES # (AUTO) 0.4 X 10^3 (1.0-4.0); LYMPHOCYTES % (AUTO) 9 % (12-44); MEAN CORPUSCULAR HEMOGLOBIN 30 PG (25-34); MEAN CORPUSCULAR HGB CONC 33 G/DL (32-36); MEAN CORPUSCULAR VOLUME 91 FL (80-99); MONOCYTES % (AUTO) 0 % (0-12); NEUTROPHILS # (AUTO) 3.8 X 10^3 (1.8-7.8); NEUTROPHILS % (AUTO) 89 % (42-75); PLATELET COUNT 182 10^3/uL (130-400); RED CELL DISTRIBUTION WIDTH 14.8 % (10.0-14.5); WHITE BLOOD COUNT 4.2 10^3/uL (4.3-11.0)
[2019-07-08 11:12] LABS: BUN/CREATININE RATIO 24; CALCIUM 8.9 MG/DL (8.5-10.1); CARBON DIOXIDE 25 MMOL/L (21-32); CHLORIDE 103 MMOL/L (98-107); CREATININE SERUM 1.14 MG/DL (0.60-1.30); GFR ESTIMATED > 60; GLUCOSE 84 MG/DL (70-105); POTASSIUM 4.3 MMOL/L (3.6-5.0); SODIUM 137 MMOL/L (135-145)
== END 2019-07-16 | disposition home or self-care (01) ==
LOC: ONC 10:38
PROVIDERS: ATTEND Internal Medicine Hematology & Oncology
DX: Z51.11 Encounter for antineoplastic chemotherapy (principal); Z51.0 Encounter for antineoplastic radiation therapy; C7A.8 Other malignant neuroendocrine tumors; C61 Malignant neoplasm of prostate; I10 Essential (primary) hypertension; E78.5 Hyperlipidemia, unspecified; I25.10 Atherosclerotic heart disease of native coronary artery without angina pectoris; N40.0 Benign prostatic hyperplasia without lower urinary tract symptoms; Z79.82 Long term (current) use of aspirin; Z79.899 Other long term (current) drug therapy; Z95.5 Presence of coronary angioplasty implant and graft
CPT/HCPCS: 36415; 36591; 77290; 77295; 77300; 77334; 77336; 77417; 80048; 80053; 84153; 85025; 96367; 96375; 96413; 96417; 99213; 99214

== ENCOUNTER → 2019-07-08 | Outpatient (CLI) | payer OTHER, MEDICARE ==
[~2019-07-08] MED LIST changes: +BARIUM SUSPENSION 2.1% (VANILLA SILQ) 450 ML PO ONE; +CATHETER FLUSH 10 ML SYR IV PRN; +GADOBUTROL 7.5 MMOL/7.5 ML (GADAVIST) VIAL IV ONE; +HOLD METFORMIN - RECEIVED CONTRAST 20 ML VIAL IV SCH; +IOHEXOL 350 MG/ML 100 ML (OMNIPAQUE 350) VIAL IV ONE; +NS 100 ML (IVPB) BAG IV ONE
--- NOTE | 2019-07-08 11:03 | Diagnostic Imaging Report ---
PROCEDURE: CT chest with contrast, CT abdomen and pelvis with and without contrast. TECHNIQUE: Pre and post intravenous contrast axial imaging of the abdomen and pelvis and post contrast axial imaging of the chest were performed. Auto Exposure Controls were utilized during the CT exam to meet ALARA standards for radiation dose reduction. INDICATION: Small cell carcinoma. FINDINGS: The previous CT chest, abdomen and pelvis exam of 04/18/2019 noted the development of a 1.4 cm area of low density in the inferior aspect of the right lobe of the liver. This finding was felt to be suspicious for metastatic disease. This area was biopsied using CT guidance on 04/30/2019 but the results of the biopsy are not known to me. On this study, the area in question is again identified and does not seem to have changed significantly. It now measures 1.5 cm. The liver is otherwise stable. The prior exam also identified abnormal para-aortic and pelvic adenopathy. Specifically, there was a 1.4 x 2.0 cm node in the para-aortic region on the left. That node is again noted and now measures 1.8 x 1.9 cm. There is also a 1.5 x 1.8 cm node posterior to the bifurcation of the aorta. That node now measures 1.4 x 1.7 cm. The 1.4 x 2.4 cm left iliac chain node is now estimated to be 1.4 x 2.3 cm. However, the nodes along each pelvic sidewall are considerably smaller than on the prior study. The node on the left pelvic sidewall measuring 2.0 x 3.6 cm previously now measures only 1.3 x 2.2 cm. The node along the right pelvic sidewall estimated to be 2.3 x 2.9 cm on the prior examination now measures only 1.3 x 1.6 cm. Furthermore the nodes along the obturator musculature on the right measuring 2.0 x 3.1 cm on the prior exam is not visualized on this study. The abnormal soft tissue density along the anterior aspect of the rectum measuring 2.4 x 3.1 cm is now estimated to be only 1.1 x 1.2 cm. The prior study also identified a lytic lesion involving the left pubic symphysis. This measured 1.9 x 1.9 cm. On this study that lesion has increased in size and is now estimated to be 2.2 x 2.3 cm. There is also a 2.0 x 3.3 cm lytic lesion along the anterior aspect of L3. On the prior exam this measured 1.3 x 2.3 cm. There is another lytic lesion involving the right pedicle of L4 measuring 1.9 x 2.7 cm as opposed to 1.2 x 1.9 cm previously. There is also a lesion of mixed density along the inferior endplate of L1. This measures 3.0 x 3.0 cm. On the prior study this area was estimated to be 1.4 x 2.0 cm. There may be a few other smaller lesions involving the lumbar spine. There is also a destructive lesion along the posterior aspect of the vertebral body of T8. This measures 1.0 x 2.0 cm as opposed to 0.6 x 1.6 cm previously. In addition, there is a 1.4 x 2.3 cm lytic lesion along the anterior aspect of T1. Previously this measured 1.1 x 1.5 cm. The 1.1 x 1.3 cm area of low density in the posterior aspect of T2 is essentially no different than on the prior exam. The overall appearance of the chest abdomen and pelvis is otherwise no different. IMPRESSION: 1. There are mixed results. The pelvic adenopathy noted on the prior exam has diminished or resolved. However, the metastatic skeletal disease noted previously has progressed. 2. The area of low density in the right lobe of the liver seen previously does not appear to have changed significantly. Correlation with the patient's biopsy results would be recommended. 3. The overall appearance of the chest, abdomen and pelvis is otherwise stable. There is no acute abnormality identified. Dictated by: Dictated on workstation # [id number]
--- NOTE | 2019-07-08 11:10 | Diagnostic Imaging Report ---
PROCEDURE: MR imaging of the brain with and without contrast. TECHNIQUE: Multiplanar, multisequence MR imaging of the brain was performed with and without contrast. INDICATION: Small cell lung cancer. FINDINGS: The previous MRI brain exam of 01/13/2019 failed to show any sign of an acute abnormality. There was no abnormal enhancement to indicate neoplastic disease related to the patient's diagnosis of small cell carcinoma either. On this study, there does not appear to have been any significant change when compared to the previous exam. There is a minute area of enhancement in the right cerebellar hemisphere (image 4/24, axial series). This was present on the prior exam and seems to be related to a vessel and not to a lesion. There is no abnormal signal arising from the brain on the diffusion series to indicate an area of acute ischemia. There is no mass, shift of the midline, or hemorrhage. The ventricles are not abnormally dilated and stable in size when compared to the prior exam. The senescent changes seen previously including cortical atrophy and periventricular encephalomalacia do not appear to have progressed significantly. The sella is not enlarged, and the expected carotid flow voids are evident bilaterally. The orbits are symmetrical and within normal limits. The sinuses are generally clear. IMPRESSION: 1. There is no evidence for an acute intracranial abnormality. There is no abnormal enhancement to suggest metastatic disease either. 2. The senescent changes seen on the prior study are again evident and do not appear to have progressed. Dictated by: Dictated on workstation # [id number]
== END ==
LOC: RAD 09:14
PROVIDERS: ATTEND Internal Medicine Hematology & Oncology
DX: Z01.89 Encounter for other specified special examinations (principal); C80.1 Malignant (primary) neoplasm, unspecified; C79.51 Secondary malignant neoplasm of bone; C77.9 Secondary and unspecified malignant neoplasm of lymph node, unspecified
CPT/HCPCS: 70553; 71260; 74178

== ENCOUNTER → 2019-07-14 | Outpatient (CLI) | payer MEDICARE, OTHER ==
[~2019-07-14] MED LIST changes: -ATEZOLIZUMAB 1,200 MG in NS (IVPB) CANCER CENTER 250 ML IV SCH; -CARBOPLATIN IV SCH; -CYANOCOBALAMIN INJ 1000 MCG/ML (CANCER CENTER) ONE; -D5W IV SCH; -DEXAMETHASONE IV SCH; -ETOPOSIDE 200 MG in NORMAL SALINE (CANCER CENTER) 500 ML IV SCH; -FOSAPREPITANT DIMEGLUMINE 150 MG in NS (IVPB) CANCER CENTER ONLY 150 ML IV SCH; -NS IV 1000 ML (CANCER CTR) IV SCH; -NS IV 500 ML (CANCER CENTER) 500 ML ONE; -ONDANSETRON IV SCH; -PALONOSETRON HCL 0.25 MG, DEXAMETHASONE INJECTION 10 MG in NS (IVPB) CANCER CENTER 50 ML IV SCH; -[UNRECOGNIZED DRUG - OTHER] IV SCH
== END ==
LOC: WOUNDCARE 10:25
PROVIDERS: ATTEND Surgery
DX: L97.512 Non-pressure chronic ulcer of other part of right foot with fat layer exposed (principal); B35.3 Tinea pedis; D72.810 Lymphocytopenia; I96 Gangrene, not elsewhere classified
CPT/HCPCS: 99213

== ENCOUNTER → 2019-07-21 | Outpatient (CLI) | payer MEDICARE, OTHER | LOC: WOUNDCARE 10:23 | PROVIDERS: ATTEND Surgery | DX: L97.511 Non-pressure chronic ulcer of other part of right foot limited to breakdown of skin (principal); B35.3 Tinea pedis; D72.810 Lymphocytopenia | CPT/HCPCS: 99212 ==

== ENCOUNTER → 2019-07-28 | Outpatient (CLI) | payer MEDICARE, OTHER | LOC: WOUNDCARE 10:24 | PROVIDERS: ATTEND Surgery | DX: I96 Gangrene, not elsewhere classified (principal); L97.511 Non-pressure chronic ulcer of other part of right foot limited to breakdown of skin; B35.3 Tinea pedis; D72.810 Lymphocytopenia | CPT/HCPCS: 99213 ==

== ENCOUNTER → 2019-08-04 | Outpatient (CLI) | payer MEDICARE, OTHER | LOC: WOUNDCARE 10:20 | PROVIDERS: ATTEND Surgery | DX: I96 Gangrene, not elsewhere classified (principal); L97.511 Non-pressure chronic ulcer of other part of right foot limited to breakdown of skin; B35.3 Tinea pedis; D72.810 Lymphocytopenia | CPT/HCPCS: 99213 ==

== ENCOUNTER → 2019-08-11 | Outpatient (CLI) | payer MEDICARE, OTHER | LOC: WOUNDCARE 10:27 | PROVIDERS: ATTEND Surgery | DX: L97.511 Non-pressure chronic ulcer of other part of right foot limited to breakdown of skin (principal); B35.3 Tinea pedis; D72.810 Lymphocytopenia | CPT/HCPCS: 99212 ==

== ENCOUNTER 2019-09-26 11:03 | Outpatient (RCR) | payer MEDICARE, OTHER ==
[2019-07-18 14:54] LABS: BASOPHILS % (AUTO) 0 % (0-10); EOSINOPHILS % (AUTO) 1 % (0-10); HEMATOCRIT 24 % (40-54); HEMOGLOBIN 7.7 G/DL (13.3-17.7); LYMPHOCYTES # (AUTO) 0.4 X 10^3 (1.0-4.0); LYMPHOCYTES % (AUTO) 22 % (12-44); MEAN CORPUSCULAR HEMOGLOBIN 31 PG (25-34); MEAN CORPUSCULAR HGB CONC 33 G/DL (32-36); MEAN CORPUSCULAR VOLUME 94 FL (80-99); MEAN PLATELET VOLUME 10.4 FL (7.4-10.4); MONOCYTES # (AUTO) 0.4 X 10^3 (0.0-1.0); MONOCYTES % (AUTO) 25 % (0-12); NEUTROPHILS # (AUTO) 0.9 X 10^3 (1.8-7.8); NEUTROPHILS % (AUTO) 52 % (42-75); PLATELET COUNT 99 10^3/uL (130-400); RED CELL DISTRIBUTION WIDTH 15.4 % (10.0-14.5); WHITE BLOOD COUNT 1.8 10^3/uL (4.3-11.0)
[2019-07-18 15:15] LABS: ALBUMIN 3.6 GM/DL (3.2-4.5); BILIRUBIN,TOTAL 0.3 MG/DL (0.1-1.0); CALCIUM 9.2 MG/DL (8.5-10.1); CREATININE SERUM 1.52 MG/DL (0.60-1.30); POTASSIUM 3.8 MMOL/L (3.6-5.0); TOTAL PROTEIN 7.1 GM/DL (6.4-8.2)
[2019-07-23 09:49] LABS: BASOPHILS % (AUTO) 0 % (0-10); EOSINOPHILS % (AUTO) 0 % (0-10); HEMATOCRIT 23 % (40-54); HEMOGLOBIN 7.4 G/DL (13.3-17.7); LYMPHOCYTES # (AUTO) 0.5 X 10^3 (1.0-4.0); LYMPHOCYTES % (AUTO) 13 % (12-44); MEAN CORPUSCULAR HEMOGLOBIN 31 PG (25-34); MEAN CORPUSCULAR HGB CONC 32 G/DL (32-36); MEAN CORPUSCULAR VOLUME 95 FL (80-99); MONOCYTES # (AUTO) 0.6 X 10^3 (0.0-1.0); MONOCYTES % (AUTO) 17 % (0-12); NEUTROPHILS # (AUTO) 2.7 X 10^3 (1.8-7.8); NEUTROPHILS % (AUTO) 70 % (42-75); PLATELET COUNT 202 10^3/uL (130-400); RED CELL DISTRIBUTION WIDTH 15.7 % (10.0-14.5); WHITE BLOOD COUNT 3.8 10^3/uL (4.3-11.0)
[2019-07-30 11:34] LABS: BASOPHILS % (AUTO) 0 % (0-10); EOSINOPHILS % (AUTO) 0 % (0-10); HEMATOCRIT 23 % (40-54); HEMOGLOBIN 7.6 G/DL (13.3-17.7); LYMPHOCYTES # (AUTO) 0.3 X 10^3 (1.0-4.0); LYMPHOCYTES % (AUTO) 19 % (12-44); MEAN CORPUSCULAR HEMOGLOBIN 31 PG (25-34); MEAN CORPUSCULAR HGB CONC 33 G/DL (32-36); MEAN CORPUSCULAR VOLUME 95 FL (80-99); MEAN PLATELET VOLUME 9.4 FL (7.4-10.4); MONOCYTES % (AUTO) 2 % (0-12); NEUTROPHILS # (AUTO) 1.1 X 10^3 (1.8-7.8); NEUTROPHILS % (AUTO) 80 % (42-75); PLATELET COUNT 229 10^3/uL (130-400); RED CELL DISTRIBUTION WIDTH 15.8 % (10.0-14.5)
[2019-07-30 11:35] LABS: WHITE BLOOD COUNT 1.3 10^3/uL (4.3-11.0)
[2019-07-30 11:54] LABS: BUN/CREATININE RATIO 21; CALCIUM 8.8 MG/DL (8.5-10.1); CARBON DIOXIDE 26 MMOL/L (21-32); CHLORIDE 104 MMOL/L (98-107); CREATININE SERUM 1.17 MG/DL (0.60-1.30); GFR ESTIMATED > 60; GLUCOSE 111 MG/DL (70-105); POTASSIUM 4.2 MMOL/L (3.6-5.0); SODIUM 137 MMOL/L (135-145)
[2019-08-13 08:57] LABS: BASOPHILS % (AUTO) 0 % (0-10); EOSINOPHILS % (AUTO) 0 % (0-10); HEMATOCRIT 24 % (40-54); HEMOGLOBIN 7.6 G/DL (13.3-17.7); LYMPHOCYTES # (AUTO) 0.6 X 10^3 (1.0-4.0); LYMPHOCYTES % (AUTO) 12 % (12-44); MEAN CORPUSCULAR HEMOGLOBIN 31 PG (25-34); MEAN CORPUSCULAR HGB CONC 32 G/DL (32-36); MEAN CORPUSCULAR VOLUME 97 FL (80-99); MEAN PLATELET VOLUME 9.7 FL (7.4-10.4); MONOCYTES # (AUTO) 0.8 X 10^3 (0.0-1.0); MONOCYTES % (AUTO) 17 % (0-12); NEUTROPHILS # (AUTO) 3.2 X 10^3 (1.8-7.8); NEUTROPHILS % (AUTO) 71 % (42-75); PLATELET COUNT 186 10^3/uL (130-400); RED CELL DISTRIBUTION WIDTH 17.4 % (10.0-14.5); WHITE BLOOD COUNT 4.6 10^3/uL (4.3-11.0)
[2019-08-13 09:17] LABS: CREATININE SERUM 1.49 MG/DL (0.60-1.30); POTASSIUM 3.7 MMOL/L (3.6-5.0)
[2019-08-13 09:18] LABS: ALBUMIN 3.8 GM/DL (3.2-4.5); BILIRUBIN,TOTAL 0.2 MG/DL (0.1-1.0); CALCIUM 9.1 MG/DL (8.5-10.1); TOTAL PROTEIN 7.1 GM/DL (6.4-8.2)
[2019-08-20 13:23] LABS: HEMATOCRIT 24 % (40-54); HEMOGLOBIN 7.7 G/DL (13.3-17.7); MEAN CORPUSCULAR HEMOGLOBIN 31 PG (25-34); MEAN CORPUSCULAR HGB CONC 33 G/DL (32-36); MEAN CORPUSCULAR VOLUME 96 FL (80-99); MEAN PLATELET VOLUME 10.1 FL (7.4-10.4); PLATELET COUNT 188 10^3/uL (130-400); WHITE BLOOD COUNT 1.9 10^3/uL (4.3-11.0)
[2019-08-20 13:40] LABS: CALCIUM 9.2 MG/DL (8.5-10.1); CREATININE SERUM 1.22 MG/DL (0.60-1.30); POTASSIUM 4.1 MMOL/L (3.6-5.0)
[2019-09-03 09:29] LABS: BASOPHILS % (AUTO) 0 % (0-10); EOSINOPHILS % (AUTO) 0 % (0-10); HEMATOCRIT 23 % (40-54); HEMOGLOBIN 7.3 G/DL (13.3-17.7); LYMPHOCYTES # (AUTO) 0.4 X 10^3 (1.0-4.0); LYMPHOCYTES % (AUTO) 12 % (12-44); MEAN CORPUSCULAR HEMOGLOBIN 32 PG (25-34); MEAN CORPUSCULAR HGB CONC 32 G/DL (32-36); MEAN CORPUSCULAR VOLUME 100 FL (80-99); MEAN PLATELET VOLUME 10.4 FL (7.4-10.4); MONOCYTES # (AUTO) 0.5 X 10^3 (0.0-1.0); MONOCYTES % (AUTO) 12 % (0-12); NEUTROPHILS # (AUTO) 2.9 X 10^3 (1.8-7.8); NEUTROPHILS % (AUTO) 76 % (42-75); PLATELET COUNT 171 10^3/uL (130-400); RED CELL DISTRIBUTION WIDTH 18.7 % (10.0-14.5); WHITE BLOOD COUNT 3.8 10^3/uL (4.3-11.0)
[2019-09-03 09:53] LABS: ALBUMIN 3.8 GM/DL (3.2-4.5); BILIRUBIN,TOTAL 0.3 MG/DL (0.1-1.0); CALCIUM 9.2 MG/DL (8.5-10.1); CREATININE SERUM 1.46 MG/DL (0.60-1.30); POTASSIUM 3.9 MMOL/L (3.6-5.0); TOTAL PROTEIN 6.9 GM/DL (6.4-8.2)
[2019-09-10 11:15] LABS: BASOPHILS % (AUTO) 0 % (0-10); EOSINOPHILS % (AUTO) 0 % (0-10); HEMATOCRIT 23 % (40-54); HEMOGLOBIN 7.5 G/DL (13.3-17.7); LYMPHOCYTES # (AUTO) 0.3 X 10^3 (1.0-4.0); LYMPHOCYTES % (AUTO) 14 % (12-44); MEAN CORPUSCULAR HEMOGLOBIN 32 PG (25-34); MEAN CORPUSCULAR HGB CONC 33 G/DL (32-36); MEAN CORPUSCULAR VOLUME 97 FL (80-99); MEAN PLATELET VOLUME 9.5 FL (7.4-10.4); MONOCYTES % (AUTO) 1 % (0-12); NEUTROPHILS # (AUTO) 1.9 X 10^3 (1.8-7.8); NEUTROPHILS % (AUTO) 86 % (42-75); PLATELET COUNT 176 10^3/uL (130-400); RED CELL DISTRIBUTION WIDTH 17.9 % (10.0-14.5); WHITE BLOOD COUNT 2.2 10^3/uL (4.3-11.0)
[2019-09-10 11:32] LABS: CALCIUM 9.2 MG/DL (8.5-10.1); CREATININE SERUM 1.27 MG/DL (0.60-1.30); POTASSIUM 4.2 MMOL/L (3.6-5.0)
[2019-09-19 13:50] LABS: BASOPHILS % (AUTO) 0 % (0-10); EOSINOPHILS % (AUTO) 1 % (0-10); HEMATOCRIT 23 % (40-54); HEMOGLOBIN 7.5 G/DL (13.3-17.7); LYMPHOCYTES # (AUTO) 0.4 X 10^3 (1.0-4.0); LYMPHOCYTES % (AUTO) 27 % (12-44); MEAN CORPUSCULAR HEMOGLOBIN 32 PG (25-34); MEAN CORPUSCULAR HGB CONC 32 G/DL (32-36); MEAN CORPUSCULAR VOLUME 100 FL (80-99); MONOCYTES # (AUTO) 0.4 X 10^3 (0.0-1.0); MONOCYTES % (AUTO) 30 % (0-12); NEUTROPHILS # (AUTO) 0.6 X 10^3 (1.8-7.8); NEUTROPHILS % (AUTO) 42 % (42-75); PLATELET COUNT 93 10^3/uL (130-400); RED CELL DISTRIBUTION WIDTH 18.3 % (10.0-14.5)
[2019-09-19 13:52] LABS: WHITE BLOOD COUNT 1.4 10^3/uL (4.3-11.0)
[2019-09-19 13:57] LABS: CALCIUM 9.8 MG/DL (8.5-10.1); CREATININE SERUM 1.59 MG/DL (0.60-1.30); POTASSIUM 4.2 MMOL/L (3.6-5.0)
[2019-09-25 09:07] LABS: BASOPHILS % (AUTO) 0 % (0-10); EOSINOPHILS % (AUTO) 0 % (0-10); HEMATOCRIT 23 % (40-54); HEMOGLOBIN 7.3 G/DL (13.3-17.7); LYMPHOCYTES # (AUTO) 0.5 X 10^3 (1.0-4.0); LYMPHOCYTES % (AUTO) 11 % (12-44); MEAN CORPUSCULAR HEMOGLOBIN 32 PG (25-34); MEAN CORPUSCULAR HGB CONC 31 G/DL (32-36); MEAN CORPUSCULAR VOLUME 102 FL (80-99); MEAN PLATELET VOLUME 11.4 FL (7.4-10.4); MONOCYTES # (AUTO) 0.7 X 10^3 (0.0-1.0); MONOCYTES % (AUTO) 15 % (0-12); NEUTROPHILS # (AUTO) 3.4 X 10^3 (1.8-7.8); NEUTROPHILS % (AUTO) 73 % (42-75); PLATELET COUNT 152 10^3/uL (130-400); RED CELL DISTRIBUTION WIDTH 20.1 % (10.0-14.5); WHITE BLOOD COUNT 4.7 10^3/uL (4.3-11.0)
[2019-09-25 09:24] LABS: ALBUMIN 3.9 GM/DL (3.2-4.5); BILIRUBIN,TOTAL 0.3 MG/DL (0.1-1.0); CREATININE SERUM 1.66 MG/DL (0.60-1.30); TOTAL PROTEIN 7.2 GM/DL (6.4-8.2)
[~2019-09-26 11:03] MED LIST changes: +ATEZOLIZUMAB 1,200 MG in NS (IVPB) CANCER CENTER 250 ML IV SCH; +CARBOPLATIN IV SCH; +D5W IV SCH; +DEXAMETHASONE IV SCH; +DILT120C88 PO; -DILT120C94 PO; +ETOPOSIDE 200 MG in NORMAL SALINE (CANCER CENTER) 500 ML IV SCH; +FOSAPREPITANT DIMEGLUMINE 150 MG in NS (IVPB) CANCER CENTER ONLY 150 ML IV SCH; +NS IV 1000 ML (CANCER CTR) IV SCH; +NS IV 500 ML (CANCER CENTER) 500 ML ONE; +ONDANSETRON IV SCH; +PALONOSETRON HCL 0.25 MG, DEXAMETHASONE INJECTION 10 MG in NS (IVPB) CANCER CENTER 50 ML IV SCH; -TAMS0.4C98 PO; +TMSL.4C PO; +[UNRECOGNIZED DRUG - OTHER] IV SCH
== END 2019-10-16 | disposition home or self-care (01) ==
LOC: ONC 11:03
PROVIDERS: ATTEND Internal Medicine Hematology & Oncology
DX: C7A.8 Other malignant neuroendocrine tumors (principal); C61 Malignant neoplasm of prostate; Z79.899 Other long term (current) drug therapy; Z95.5 Presence of coronary angioplasty implant and graft
CPT/HCPCS: 36415; 36591; 80048; 80053; 85025; 96367; 96375; 96413; 96417

== ENCOUNTER → 2019-10-23 | Outpatient (CLI) | payer MEDICARE, OTHER ==
[~2019-10-23] MED LIST changes: -ATEZOLIZUMAB 1,200 MG in NS (IVPB) CANCER CENTER 250 ML IV SCH; -CARBOPLATIN IV SCH; -D5W IV SCH; -DEXAMETHASONE IV SCH; -ETOPOSIDE 200 MG in NORMAL SALINE (CANCER CENTER) 500 ML IV SCH; -FOSAPREPITANT DIMEGLUMINE 150 MG in NS (IVPB) CANCER CENTER ONLY 150 ML IV SCH; +GADOBUTROL 7.5 MMOL/7.5 ML (GADAVIST) VIAL IV ONE; +HOLD METFORMIN - RECEIVED CONTRAST 20 ML VIAL IV SCH; +IOHEXOL 350 MG/ML 100 ML (OMNIPAQUE 350) VIAL IV ONE; +NS 100 ML (IVPB) BAG IV ONE; -NS IV 1000 ML (CANCER CTR) IV SCH; -NS IV 500 ML (CANCER CENTER) 500 ML ONE; -ONDANSETRON IV SCH; -PALONOSETRON HCL 0.25 MG, DEXAMETHASONE INJECTION 10 MG in NS (IVPB) CANCER CENTER 50 ML IV SCH; -[UNRECOGNIZED DRUG - OTHER] IV SCH
--- NOTE | 2019-10-23 10:11 | Diagnostic Imaging Report ---
PROCEDURE: CT chest with contrast, CT abdomen and pelvis with and without contrast. TECHNIQUE: Pre and post intravenous contrast axial imaging of the abdomen and pelvis and post contrast axial imaging of the chest were performed. Auto Exposure Controls were utilized during the CT exam to meet ALARA standards for radiation dose reduction. INDICATION: Small cell carcinoma. COMPARISON: Exam compared to 07/08/2019. FINDINGS: Chest: There is no axillary, hilar, mediastinal, or appreciable supraclavicular lymphadenopathy. No dominant lung mass or suspicious pulmonary nodularity. No evidence for edema or pneumonia. No pneumothorax. Multiple previously lytic bony lesions are either stable or showed some new sclerotic features, likely reflective of a component of healing. No findings felt suggestive of bony metastatic progression. No pathological fracture. Abdomen and pelvis: Mass in the right hepatic lobe inferiorly present on the previous study is no longer identified. No new liver lesion. Cholelithiasis is redemonstrated. Left periaortic retroperitoneal abdominal adenopathy is no longer seen. There is no adrenal mass. The spleen is negative. A small hiatal hernia, chronic. The pancreas appeared nonfocal and nonacute. There has been resolution of left common iliac chain adenopathy. A left external iliac chain node is barely perceptible on follow-up measuring 8 mm x 5 mm, previously 22 mm x 13 mm. No adenopathy in the inguinal canals. No abdominopelvic ascites or other fluid collection. No focal inflammatory process. The unobstructed kidneys appeared normal. The previously noted lytic bone lesions are either stable or showed progressive density, presumptively reflective of elements of sclerotic healing. IMPRESSION: 1. Excellent response, likely at least partial healing by sclerosis of multifocal previous lytic bony metastases. 2. Chest: No evidence for soft tissue metastasis. 3. Abdomen and pelvis: Resolution of hepatic metastasis and abdominal adenopathy. Solitary residual tiny subcentimeter lymph node in the left external iliac chain does not appear pathologic on follow up. No adverse development. Dictated by: Dictated on workstation # [id number]
--- NOTE | 2019-10-23 10:27 | Diagnostic Imaging Report ---
PROCEDURE: MR imaging of the brain with and without contrast. TECHNIQUE: Multiplanar, multisequence MR imaging of the brain was performed with and without contrast. INDICATION: Follow-up small cell carcinoma. Evaluate for metastatic disease. Comparison: MRI brain on 07/08/2019 Findings: No acute ischemia, mass, or hemorrhage. No abnormal enhancement. Chronic microvascular disease is seen in the periventricular and subcortical white matter. The ventricles and cortical sulci are diffusely prominent. The basilar cisterns are symmetric and unremarkable. The sellar and suprasellar regions have a normal appearance. The brainstem and posterior fossa are unremarkable. Mucosal thickening is seen throughout the paranasal sinuses. The mastoid air cells demonstrate normal signal characteristics. The globes and orbits are symmetric and unremarkable. The scalp and calvarium have a normal appearance. Impression: 1. No acute ischemia, mass, or hemorrhage. No abnormal enhancement to suggest metastatic disease. 2. Chronic microvascular disease. 3. Generalized parenchymal volume loss. Dictated by: Dictated on workstation # [id number]
== END ==
LOC: RAD 08:23
PROVIDERS: ATTEND Internal Medicine Hematology & Oncology
DX: C80.1 Malignant (primary) neoplasm, unspecified (principal); C79.51 Secondary malignant neoplasm of bone; I67.82 Cerebral ischemia; G93.89 Other specified disorders of brain
CPT/HCPCS: 70553; 71260; 74178

== ENCOUNTER 2019-12-25 09:54 | Outpatient (RCR) | payer MEDICARE, OTHER ==
[2019-10-23 08:50] LABS: BASOPHILS % (AUTO) 0 % (0-10); EOSINOPHILS % (AUTO) 0 % (0-10); HEMATOCRIT 26 % (40-54); LYMPHOCYTES # (AUTO) 0.5 X 10^3 (1.0-4.0); LYMPHOCYTES % (AUTO) 14 % (12-44); MEAN CORPUSCULAR HEMOGLOBIN 32 PG (25-34); MEAN CORPUSCULAR HGB CONC 30 G/DL (32-36); MEAN CORPUSCULAR VOLUME 105 FL (80-99); MEAN PLATELET VOLUME 10.5 FL (7.4-10.4); MONOCYTES # (AUTO) 0.7 X 10^3 (0.0-1.0); MONOCYTES % (AUTO) 19 % (0-12); NEUTROPHILS # (AUTO) 2.3 X 10^3 (1.8-7.8); NEUTROPHILS % (AUTO) 66 % (42-75); PLATELET COUNT 217 10^3/uL (130-400); RED CELL DISTRIBUTION WIDTH 20.6 % (10.0-14.5); WHITE BLOOD COUNT 3.5 10^3/uL (4.3-11.0)
[2019-10-23 09:12] LABS: BILIRUBIN,TOTAL 0.3 MG/DL (0.1-1.0); CALCIUM 9.2 MG/DL (8.5-10.1); CREATININE SERUM 1.48 MG/DL (0.60-1.30); POTASSIUM 3.9 MMOL/L (3.6-5.0); TOTAL PROTEIN 7.3 GM/DL (6.4-8.2)
[2019-11-13 09:46] LABS: BASOPHILS % (AUTO) 0 % (0-10); EOSINOPHILS # (AUTO) 0.1 10^3/uL (0.0-0.3); EOSINOPHILS % (AUTO) 3 % (0-10); HEMATOCRIT 31 % (40-54); HEMOGLOBIN 9.8 G/DL (13.3-17.7); LYMPHOCYTES # (AUTO) 0.5 X 10^3 (1.0-4.0); LYMPHOCYTES % (AUTO) 11 % (12-44); MEAN CORPUSCULAR HEMOGLOBIN 33 PG (25-34); MEAN CORPUSCULAR HGB CONC 32 G/DL (32-36); MEAN CORPUSCULAR VOLUME 104 FL (80-99); MEAN PLATELET VOLUME 10.2 FL (7.4-10.4); MONOCYTES # (AUTO) 0.5 X 10^3 (0.0-1.0); MONOCYTES % (AUTO) 11 % (0-12); NEUTROPHILS # (AUTO) 3.5 X 10^3 (1.8-7.8); NEUTROPHILS % (AUTO) 75 % (42-75); PLATELET COUNT 202 10^3/uL (130-400); RED CELL DISTRIBUTION WIDTH 16.3 % (10.0-14.5); WHITE BLOOD COUNT 4.7 10^3/uL (4.3-11.0)
[2019-11-13 10:06] LABS: BILIRUBIN,TOTAL 0.5 MG/DL (0.1-1.0); CALCIUM 9.5 MG/DL (8.5-10.1); CREATININE SERUM 1.57 MG/DL (0.60-1.30); POTASSIUM 3.7 MMOL/L (3.6-5.0); TOTAL PROTEIN 7.4 GM/DL (6.4-8.2)
[2019-12-04 09:27] LABS: BASOPHILS % (AUTO) 0 % (0-10); EOSINOPHILS # (AUTO) 0.1 10^3/uL (0.0-0.3); EOSINOPHILS % (AUTO) 2 % (0-10); HEMATOCRIT 33 % (40-54); HEMOGLOBIN 10.6 G/DL (13.3-17.7); LYMPHOCYTES # (AUTO) 0.6 X 10^3 (1.0-4.0); LYMPHOCYTES % (AUTO) 13 % (12-44); MEAN CORPUSCULAR HEMOGLOBIN 33 PG (25-34); MEAN CORPUSCULAR HGB CONC 33 G/DL (32-36); MEAN CORPUSCULAR VOLUME 102 FL (80-99); MEAN PLATELET VOLUME 9.9 FL (7.4-10.4); MONOCYTES # (AUTO) 0.5 X 10^3 (0.0-1.0); MONOCYTES % (AUTO) 11 % (0-12); NEUTROPHILS # (AUTO) 3.1 X 10^3 (1.8-7.8); NEUTROPHILS % (AUTO) 74 % (42-75); PLATELET COUNT 175 10^3/uL (130-400); RED CELL DISTRIBUTION WIDTH 14.2 % (10.0-14.5); WHITE BLOOD COUNT 4.2 10^3/uL (4.3-11.0)
[2019-12-04 09:55] LABS: CREATININE SERUM 1.59 MG/DL (0.60-1.30); POTASSIUM 4.2 MMOL/L (3.6-5.0)
[2019-12-04 09:56] LABS: ALBUMIN 4.1 GM/DL (3.2-4.5); BILIRUBIN,TOTAL 0.4 MG/DL (0.1-1.0); CALCIUM 9.5 MG/DL (8.5-10.1); TOTAL PROTEIN 7.6 GM/DL (6.4-8.2)
[~2019-12-25] VITALS: Ht 175.3 cm; Wt 85.7 kg
[~2019-12-25 09:54] MED LIST changes: +ATEZOLIZUMAB 1,200 MG in NS (IVPB) CANCER CENTER 250 ML IV SCH; +FISH OIL 1,3601 EACH PO; -GADOBUTROL 7.5 MMOL/7.5 ML (GADAVIST) VIAL IV ONE; -HOLD METFORMIN - RECEIVED CONTRAST 20 ML VIAL IV SCH; -IOHEXOL 350 MG/ML 100 ML (OMNIPAQUE 350) VIAL IV ONE; -NS 100 ML (IVPB) BAG IV ONE; +NS IV 1000 ML (CANCER CTR) 1,000 ML IV SCH; +NS IV 500 ML (CANCER CENTER) 500 ML ONE; -OMEG-164 PO
[2019-12-25 10:34] LABS: BASOPHILS % (AUTO) 0 % (0-10); EOSINOPHILS # (AUTO) 0.1 10^3/uL (0.0-0.3); EOSINOPHILS % (AUTO) 2 % (0-10); HEMATOCRIT 33 % (40-54); HEMOGLOBIN 10.6 G/DL (13.3-17.7); LYMPHOCYTES # (AUTO) 0.5 X 10^3 (1.0-4.0); LYMPHOCYTES % (AUTO) 15 % (12-44); MEAN CORPUSCULAR HEMOGLOBIN 33 PG (25-34); MEAN CORPUSCULAR HGB CONC 32 G/DL (32-36); MEAN CORPUSCULAR VOLUME 101 FL (80-99); MEAN PLATELET VOLUME 9.8 FL (7.4-10.4); MONOCYTES # (AUTO) 0.5 X 10^3 (0.0-1.0); MONOCYTES % (AUTO) 13 % (0-12); NEUTROPHILS # (AUTO) 2.4 X 10^3 (1.8-7.8); NEUTROPHILS % (AUTO) 70 % (42-75); PLATELET COUNT 187 10^3/uL (130-400); RED CELL DISTRIBUTION WIDTH 13.8 % (10.0-14.5); WHITE BLOOD COUNT 3.4 10^3/uL (4.3-11.0)
[2019-12-25 10:51] LABS: ALBUMIN 3.9 GM/DL (3.2-4.5); BILIRUBIN,TOTAL 0.3 MG/DL (0.1-1.0); CREATININE SERUM 1.62 MG/DL (0.60-1.30); POTASSIUM 3.8 MMOL/L (3.6-5.0); TOTAL PROTEIN 7.5 GM/DL (6.4-8.2)
== END 2020-01-14 09:19 | disposition home or self-care (01) ==
LOC: ONC 09:54
PROVIDERS: ATTEND Internal Medicine Hematology & Oncology
DX: Z51.11 Encounter for antineoplastic chemotherapy (principal); C7A.8 Other malignant neuroendocrine tumors; C7B.8 Other secondary neuroendocrine tumors; C61 Malignant neoplasm of prostate; C79.51 Secondary malignant neoplasm of bone; I67.82 Cerebral ischemia; G93.89 Other specified disorders of brain; Z79.899 Other long term (current) drug therapy; Z95.5 Presence of coronary angioplasty implant and graft
CPT/HCPCS: 36591; 70553; 71260; 74178; 80053; 82607; 82728; 82746; 83540; 84153; 85025; 96413

== ENCOUNTER → 2020-01-12 | Outpatient (CLI) | payer MEDICARE, OTHER ==
[~2020-01-12] MED LIST changes: -ATEZOLIZUMAB 1,200 MG in NS (IVPB) CANCER CENTER 250 ML IV SCH; -NS IV 1000 ML (CANCER CTR) 1,000 ML IV SCH; -NS IV 500 ML (CANCER CENTER) 500 ML ONE
--- NOTE | 2020-01-12 08:28 | Diagnostic Imaging Report ---
PROCEDURE: CT chest, abdomen, and pelvis without contrast. TECHNIQUE: Multiple contiguous axial images were obtained through the chest, abdomen, and pelvis without the use of intravenous contrast. Auto Exposure Controls were utilized during the CT exam to meet ALARA standards for radiation dose reduction. INDICATION: Small cell carcinoma. COMPARISON: 10/23/2019 and 07/08/2019. FINDINGS: CT CHEST: No endoluminal nodule within the trachea. No pulmonary mass, suspicious nodule or consolidation. No pleural effusion or pneumothorax. No supraclavicular or axillary lymphadenopathy. Stable left subclavian Port-A-Cath which has tip terminating near the superior cavoatrial junction. No mediastinal, discrete hilar or juxtaphrenic lymphadenopathy. Heart is normal in size without pericardial effusion. Normal caliber thoracic aorta. Scattered mixed lytic and sclerotic skeletal lesions throughout the thoracic ribs and thoracic spine are stable. CT ABDOMEN AND PELVIS: Assessment of the abdominal viscera is limited without IV contrast, which was unable to be given due to patient's poor renal function. No free intraperitoneal air or fluid. The unenhanced liver shows no new abnormality. Tiny subcentimeter hypodensity at the site of previously noted biopsy liver mass appears grossly unchanged allowing for lack of IV contrast. The spleen, pancreas and adrenals are normal. Cholelithiasis unchanged. No CT features of acute cholecystitis. No solid renal mass or urinary tract calculi. Urinary bladder is decompressed. The prostate is stable in size with central coarse calcification. No bowel obstruction or pericolonic inflammation. Appendix is normal. No abdominal or pelvic lymphadenopathy. Mixed lytic and sclerotic lesions within the right ilium and lumbar spine are unchanged. IMPRESSION: 1. Stable treated/healing multifocal skeletal metastases. No new skeletal lesions. 2. No soft tissue change in the chest, abdomen or pelvis that would suggest disease progression. Dictated by: Dictated on workstation # [id number]
== END ==
LOC: RAD 07:47
PROVIDERS: ATTEND Internal Medicine Hematology & Oncology
DX: C80.1 Malignant (primary) neoplasm, unspecified (principal); C79.51 Secondary malignant neoplasm of bone
CPT/HCPCS: 71250; 74176

== ENCOUNTER 2020-03-25 09:18 | Outpatient (RCR) | payer OTHER ==
[2020-01-15 09:45] LABS: BASOPHILS % (AUTO) 0 % (0-10); EOSINOPHILS # (AUTO) 0.1 10^3/uL (0.0-0.3); EOSINOPHILS % (AUTO) 3 % (0-10); HEMATOCRIT 35 % (40-54); HEMOGLOBIN 11.2 G/DL (13.3-17.7); LYMPHOCYTES # (AUTO) 0.6 X 10^3 (1.0-4.0); LYMPHOCYTES % (AUTO) 16 % (12-44); MEAN CORPUSCULAR HEMOGLOBIN 32 PG (25-34); MEAN CORPUSCULAR HGB CONC 33 G/DL (32-36); MEAN CORPUSCULAR VOLUME 99 FL (80-99); MEAN PLATELET VOLUME 9.6 FL (7.4-10.4); MONOCYTES # (AUTO) 0.5 X 10^3 (0.0-1.0); MONOCYTES % (AUTO) 13 % (0-12); NEUTROPHILS # (AUTO) 2.6 X 10^3 (1.8-7.8); NEUTROPHILS % (AUTO) 68 % (42-75); PLATELET COUNT 200 10^3/uL (130-400); RED CELL DISTRIBUTION WIDTH 13.7 % (10.0-14.5); WHITE BLOOD COUNT 3.9 10^3/uL (4.3-11.0)
[2020-01-15 10:06] LABS: BILIRUBIN,TOTAL 0.2 MG/DL (0.1-1.0); CALCIUM 9.3 MG/DL (8.5-10.1); CREATININE SERUM 1.74 MG/DL (0.60-1.30); POTASSIUM 4.2 MMOL/L (3.6-5.0); TOTAL PROTEIN 7.9 GM/DL (6.4-8.2)
[2020-02-05 11:32] LABS: BASOPHILS % (AUTO) 0 % (0-10); EOSINOPHILS % (AUTO) 0 % (0-10); HEMATOCRIT 34 % (40-54); HEMOGLOBIN 10.9 G/DL (13.3-17.7); LYMPHOCYTES # (AUTO) 0.8 X 10^3 (1.0-4.0); LYMPHOCYTES % (AUTO) 22 % (12-44); MEAN CORPUSCULAR HEMOGLOBIN 31 PG (25-34); MEAN CORPUSCULAR HGB CONC 32 G/DL (32-36); MEAN CORPUSCULAR VOLUME 97 FL (80-99); MEAN PLATELET VOLUME 9.8 FL (7.4-10.4); MONOCYTES # (AUTO) 0.5 X 10^3 (0.0-1.0); MONOCYTES % (AUTO) 13 % (0-12); NEUTROPHILS # (AUTO) 2.3 X 10^3 (1.8-7.8); NEUTROPHILS % (AUTO) 65 % (42-75); PLATELET COUNT 199 10^3/uL (130-400); RED CELL DISTRIBUTION WIDTH 13.3 % (10.0-14.5); WHITE BLOOD COUNT 3.5 10^3/uL (4.3-11.0)
[2020-02-05 11:56] LABS: ALBUMIN 3.9 GM/DL (3.2-4.5); BILIRUBIN,TOTAL 0.4 MG/DL (0.1-1.0); CALCIUM 8.8 MG/DL (8.5-10.1); CREATININE SERUM 1.77 MG/DL (0.60-1.30); POTASSIUM 4.2 MMOL/L (3.6-5.0); TOTAL PROTEIN 7.6 GM/DL (6.4-8.2)
[2020-02-26 11:02] LABS: BASOPHILS % (AUTO) 0 % (0-10); EOSINOPHILS % (AUTO) 1 % (0-10); HEMATOCRIT 34 % (40-54); LYMPHOCYTES # (AUTO) 0.6 X 10^3 (1.0-4.0); LYMPHOCYTES % (AUTO) 13 % (12-44); MEAN CORPUSCULAR HEMOGLOBIN 31 PG (25-34); MEAN CORPUSCULAR HGB CONC 33 G/DL (32-36); MEAN CORPUSCULAR VOLUME 95 FL (80-99); MEAN PLATELET VOLUME 9.6 FL (7.4-10.4); MONOCYTES # (AUTO) 0.5 X 10^3 (0.0-1.0); MONOCYTES % (AUTO) 11 % (0-12); NEUTROPHILS # (AUTO) 3.5 X 10^3 (1.8-7.8); NEUTROPHILS % (AUTO) 75 % (42-75); PLATELET COUNT 207 10^3/uL (130-400); RED CELL DISTRIBUTION WIDTH 13.9 % (10.0-14.5); WHITE BLOOD COUNT 4.8 10^3/uL (4.3-11.0)
[2020-02-26 11:26] LABS: ALBUMIN 3.9 GM/DL (3.2-4.5); BILIRUBIN,TOTAL 0.4 MG/DL (0.1-1.0); CALCIUM 8.8 MG/DL (8.5-10.1); CREATININE SERUM 1.62 MG/DL (0.60-1.30); TOTAL PROTEIN 7.9 GM/DL (6.4-8.2)
[~2020-03-25 09:18] MED LIST changes: +ATEZOLIZUMAB 1,200 MG in NS (IVPB) CANCER CENTER 250 ML IV SCH; +NS IV 1000 ML (CANCER CTR) 1,000 ML IV SCH
[2020-03-25 09:35] LABS: BASOPHILS % (AUTO) 0 % (0-10); EOSINOPHILS # (AUTO) 0.1 10^3/uL (0.0-0.3); EOSINOPHILS % (AUTO) 2 % (0-10); HEMATOCRIT 34 % (40-54); HEMOGLOBIN 11.3 G/DL (13.3-17.7); LYMPHOCYTES # (AUTO) 0.7 X 10^3 (1.0-4.0); LYMPHOCYTES % (AUTO) 15 % (12-44); MEAN CORPUSCULAR HEMOGLOBIN 31 PG (25-34); MEAN CORPUSCULAR HGB CONC 33 G/DL (32-36); MEAN CORPUSCULAR VOLUME 94 FL (80-99); MEAN PLATELET VOLUME 9.7 FL (7.4-10.4); MONOCYTES # (AUTO) 0.3 X 10^3 (0.0-1.0); MONOCYTES % (AUTO) 7 % (0-12); NEUTROPHILS # (AUTO) 3.6 X 10^3 (1.8-7.8); NEUTROPHILS % (AUTO) 76 % (42-75); PLATELET COUNT 213 10^3/uL (130-400); RED CELL DISTRIBUTION WIDTH 14.1 % (10.0-14.5); WHITE BLOOD COUNT 4.7 10^3/uL (4.3-11.0)
[2020-03-25 09:59] LABS: ALBUMIN 4.1 GM/DL (3.2-4.5); BILIRUBIN,TOTAL 0.6 MG/DL (0.1-1.0); CALCIUM 9.2 MG/DL (8.5-10.1); CREATININE SERUM 1.79 MG/DL (0.60-1.30); POTASSIUM 3.9 MMOL/L (3.6-5.0)
== END 2020-04-14 | disposition home or self-care (01) ==
LOC: ONC 09:18
PROVIDERS: ATTEND Internal Medicine Hematology & Oncology
DX: Z51.11 Encounter for antineoplastic chemotherapy (principal); C7A.8 Other malignant neuroendocrine tumors; C61 Malignant neoplasm of prostate; C79.51 Secondary malignant neoplasm of bone; I67.82 Cerebral ischemia; G93.89 Other specified disorders of brain; Z79.899 Other long term (current) drug therapy; Z95.5 Presence of coronary angioplasty implant and graft
CPT/HCPCS: 80053; 85025; 96413; G0463; 36591

== ENCOUNTER → 2020-06-01 | Outpatient (CLI) | payer OTHER ==
[~2020-06-01] MED LIST changes: -ATEZOLIZUMAB 1,200 MG in NS (IVPB) CANCER CENTER 250 ML IV SCH; +CATHETER FLUSH 10 ML SYR IV PRN; +GADOBUTROL 10 MMOL/10 ML (GADAVIST) VIAL IV ONE; +HOLD METFORMIN - RECEIVED CONTRAST 20 ML VIAL IV SCH; +IOHEXOL 350 MG/ML 100 ML (OMNIPAQUE 350) VIAL IV ONE; +NS 100 ML (IVPB) BAG IV ONE; -NS IV 1000 ML (CANCER CTR) 1,000 ML IV SCH
--- NOTE | 2020-06-01 09:40 | Diagnostic Imaging Report ---
PROCEDURE: CT chest with contrast, CT abdomen and pelvis with and without contrast. TECHNIQUE: Pre and post intravenous contrast axial imaging of the abdomen and pelvis and post contrast axial imaging of the chest were performed. Auto Exposure Controls were utilized during the CT exam to meet ALARA standards for radiation dose reduction. INDICATION: Small cell carcinoma Comparison made with prior examination from 01/12/2020 FINDINGS: Some slight increase scarring along the medial aspect of the right lower lobe adjacent to the esophagus. There are no other discrete pulmonary nodules, masses or infiltrates. There is no pleural or pericardial fluid. No pneumothorax. No pathologically enlarged adenopathy in the chest. Right coronary stent is in place. Thoracic aorta is normal in caliber. The liver is normal in size. There is unchanged faint hypodensity in the right lobe which by history has been biopsied. There is no biliary ductal dilatation. There is unchanged cholelithiasis. Spleen is normal. Pancreas and adrenal glands are unremarkable. There is a 1 cm indeterminate mass in the posterior aspect left kidney. This is not definitively cystic and a small renal cell carcinoma cannot be excluded. Additionally there is a small nonobstructing left renal calculus There is no hydronephrosis. Some atherosclerotic calcification of the aorta. Bowel gas pattern is nonspecific. There is no free air. No ascites. No inflammatory changes. Bladder is normal. No pelvic mass, adenopathy or free fluid. There are unchanged scattered sclerotic osseous lesions presumably treated metastasis. No definitively new lesions are appreciated. IMPRESSION: Interval development of some focal scarring along the medial aspect of the right lower lobe adjacent to the esophagus. This is nonspecific however may reflect post radiation change. 1 cm indeterminate mass in the posterior aspect left kidney. This is not definitively cystic and a small renal cell carcinoma cannot be excluded. This could be further characterized with renal ultrasound if clinically warranted. 2 mm nonobstructing left renal calculus Unchanged scattered sclerotic skeletal metastases presumably treated. Dictated by: Dictated on workstation # [id number]
--- NOTE | 2020-06-01 10:11 | Diagnostic Imaging Report ---
PROCEDURE: MR imaging of the brain with and without contrast. TECHNIQUE: Multiplanar, multisequence MR imaging of the brain was performed with and without contrast. INDICATION: Small cell carcinoma. COMPARISON: 10/23/2019. FINDINGS: There is prominence of the ventricles and sulci. There is some moderate chronic microvascular ischemic disease. There is no hydrocephalus. There is no midline shift. There is a 1 cm enhancing mass now in the left cerebellar hemisphere. There also appears to be a 5 mm enhancing mass in the right cerebellar hemisphere inferiorly. There is a 1 cm mass in the left parietal lobe. There is a 1 cm mass along the lateral aspect of the right basal ganglia. There is a 1.2 cm mass in the high right frontal lobe. There is a 1.3 cm mass in the left temporal lobe. There is a small sessile meningioma in the left frontal lobe. There is no hemorrhage. There is no extra-axial fluid collection. The frontal, ethmoid, and sphenoid sinuses are clear. There is mucosal thickening in the maxillary sinuses bilaterally, left greater than right. The mastoid air cells are clear. The globes and intraorbital structures are unremarkable. IMPRESSION: Interval development of numerous bilateral cerebral and cerebellar intracranial metastatic lesions. Atrophy and moderately severe chronic microvascular ischemic disease. Bilateral maxillary sinus disease, left greater than right. Dictated by: Dictated on workstation # [id number]
--- NOTE | 2020-06-01 13:19 | Diagnostic Imaging Report ---
INDICATION: Small cell carcinoma. TECHNIQUE: Anterior and posterior whole body planar images were obtained 3 hours after the administration of 26.2 mCi of technetium 99m MDP. FINDINGS: There is a focal area of increased activity in the T8 vertebral body. This corresponds to a lytic lesion seen on a recent CT. Additionally, there is some uptake in the lower cervical or possibly upper thoracic spine. This, too, correlates with some lytic areas on CT. There is mild degenerative uptake in the knees. There is otherwise normal uptake of isotope throughout the remainder of the axial and appendicular skeleton. There is physiologic uptake within the kidneys bilaterally with excretion into the urinary bladder. IMPRESSION: Multifocal uptake along the upper thoracic spine and mid thoracic spine, suspect for active osseous metastatic disease. Dictated by: Dictated on workstation # [id number]
== END ==
LOC: RAD 08:01
PROVIDERS: ATTEND Internal Medicine Hematology & Oncology
DX: C79.51 Secondary malignant neoplasm of bone (principal); C44.99 Other specified malignant neoplasm of skin, unspecified; N20.0 Calculus of kidney; N28.89 Other specified disorders of kidney and ureter
CPT/HCPCS: 70553; 71260; 74178; 78306; A9503

== ENCOUNTER → 2020-06-16 | Outpatient (CLI) | payer OTHER ==
[~2020-06-16] MED LIST changes: -CATHETER FLUSH 10 ML SYR IV PRN; -GADOBUTROL 10 MMOL/10 ML (GADAVIST) VIAL IV ONE; +GADOBUTROL 7.5 MMOL/7.5 ML (GADAVIST) VIAL IV ONE; -HOLD METFORMIN - RECEIVED CONTRAST 20 ML VIAL IV SCH; -IOHEXOL 350 MG/ML 100 ML (OMNIPAQUE 350) VIAL IV ONE; -NS 100 ML (IVPB) BAG IV ONE; +PANT20TA18 PO; -PANT20TA3 PO; -PANT40TA3 PO; +PANT40TA52 PO
--- NOTE | 2020-06-16 11:02 | Diagnostic Imaging Report ---
PROCEDURE: MR imaging cervical spine with and without contrast. TECHNIQUE: Multiplanar and multisequence MRI of the cervical spine was performed with and without contrast. INDICATION: Prostate carcinoma with abnormal bone scan demonstrating lesions in the thoracic spine. No prior MRI of the cervical spine is available for comparison. Comparison is made with bone scan from 06/01/[address] study from 06/01/2020. FINDINGS: There is a marrow replacing lesion involving the T1 vertebral body. This does appear to be somewhat expansile. This involves entire T1 vertebral body as well as the right pedicle and right-sided facets. There does appear to be tumor extension posteriorly into the anterior epidural space. There may be involvement of the right C7-T1 and T1-T2 neural foramen as well. Tissue does indent the ventral thecal sac. No cord compression is identified. Remaining cervical vertebrae show normal signal intensity. The cervical cord demonstrates normal homogeneous signal intensity. Diffuse enhancement of the T1 vertebral body and posterior elements on postcontrast imaging is noted. No other areas of abnormal contrast enhancement are seen. IMPRESSION: Expansile, marrow replacing lesion involving the T1 vertebral body as well as the right pedicle and right-sided posterior elements. Findings are consistent with a metastatic lesion. There does appear to be some extraosseous tumor extension into the anterior epidural space but no cord compression is identified. There is tumor extension and narrowing the right C7-T1 and T1-T2 neural foramina. Dictated by: Dictated on workstation # [id number]
--- NOTE | 2020-06-16 11:22 | Diagnostic Imaging Report ---
INDICATION: Prostate carcinoma. TECHNIQUE: Pre and post contrast multiplanar multisequence imaging of the thoracic spine was performed. FINDINGS: The curvature and alignment are normal. The marrow replacing lesion involving the T1 vertebral body is again noted and described on the MRI cervical spine report. There is also a marrow replacing lesion involving the posterior aspect of the T8 vertebral body. This does extend into the left pedicle and left side posterior elements. There is extraosseous tumor extension involving the left aspect of the spinal canal. The tumor does narrow the left T8-T9 neural foramen. No significant central canal narrowing is seen. Tumor also extends in the left paravertebral location. No definite cord compression or abnormal signal within the spinal cord is identified. The remaining thoracic vertebrae show normal stature and signal intensity. There is a prominent Schmorl's node involving the inferior endplate of L1. IMPRESSION: Metastatic lesions at T1 and T8. The T1 lesion was described on the dedicated MRI cervical spine report. The T8 lesion does involve the left lateral aspect of the spinal canal but no cord compression is seen. There is narrowing of the left T8-T9 neuroforamen by tumor. There is also left paravertebral tumor extension. Dictated by: Dictated on workstation # [id number]
== END ==
LOC: RAD 08:45
PROVIDERS: ATTEND Radiology Radiation Oncology
DX: C61 Malignant neoplasm of prostate (principal); C79.51 Secondary malignant neoplasm of bone; D49.2 Neoplasm of unspecified behavior of bone, soft tissue, and skin; M48.03 Spinal stenosis, cervicothoracic region; M48.04 Spinal stenosis, thoracic region
CPT/HCPCS: 72156; 72157

== ENCOUNTER 2020-07-05 09:06 | Outpatient (RCR) | payer OTHER ==
[2020-04-22 10:24] LABS: BASOPHILS % (AUTO) 0 % (0-10); EOSINOPHILS # (AUTO) 0.1 10^3/uL (0.0-0.3); EOSINOPHILS % (AUTO) 3 % (0-10); HEMATOCRIT 35 % (40-54); HEMOGLOBIN 11.3 G/DL (13.3-17.7); LYMPHOCYTES # (AUTO) 0.5 X 10^3 (1.0-4.0); LYMPHOCYTES % (AUTO) 12 % (12-44); MEAN CORPUSCULAR HEMOGLOBIN 31 PG (25-34); MEAN CORPUSCULAR HGB CONC 33 G/DL (32-36); MEAN CORPUSCULAR VOLUME 94 FL (80-99); MEAN PLATELET VOLUME 9.3 FL (7.4-10.4); MONOCYTES # (AUTO) 0.3 X 10^3 (0.0-1.0); MONOCYTES % (AUTO) 8 % (0-12); NEUTROPHILS # (AUTO) 3.3 X 10^3 (1.8-7.8); NEUTROPHILS % (AUTO) 77 % (42-75); PLATELET COUNT 178 10^3/uL (130-400); WHITE BLOOD COUNT 4.3 10^3/uL (4.3-11.0)
[2020-04-22 10:46] LABS: BILIRUBIN,TOTAL 0.5 MG/DL (0.1-1.0); CALCIUM 9.2 MG/DL (8.5-10.1); CREATININE SERUM 1.82 MG/DL (0.60-1.30); POTASSIUM 3.8 MMOL/L (3.6-5.0); TOTAL PROTEIN 7.8 GM/DL (6.4-8.2)
[2020-05-13 14:31] LABS: BASOPHILS % (AUTO) 0 % (0-10); EOSINOPHILS # (AUTO) 0.2 10^3/uL (0.0-0.3); EOSINOPHILS % (AUTO) 3 % (0-10); HEMATOCRIT 33 % (40-54); LYMPHOCYTES # (AUTO) 0.7 X 10^3 (1.0-4.0); LYMPHOCYTES % (AUTO) 15 % (12-44); MEAN CORPUSCULAR HEMOGLOBIN 31 PG (25-34); MEAN CORPUSCULAR HGB CONC 33 G/DL (32-36); MEAN CORPUSCULAR VOLUME 93 FL (80-99); MEAN PLATELET VOLUME 9.8 FL (7.4-10.4); MONOCYTES # (AUTO) 0.3 X 10^3 (0.0-1.0); MONOCYTES % (AUTO) 7 % (0-12); NEUTROPHILS # (AUTO) 3.7 X 10^3 (1.8-7.8); NEUTROPHILS % (AUTO) 75 % (42-75); PLATELET COUNT 210 10^3/uL (130-400); WHITE BLOOD COUNT 4.9 10^3/uL (4.3-11.0)
[2020-05-13 14:55] LABS: ALBUMIN 3.9 GM/DL (3.2-4.5); BILIRUBIN,TOTAL 0.4 MG/DL (0.1-1.0); CREATININE SERUM 1.76 MG/DL (0.60-1.30); POTASSIUM 3.8 MMOL/L (3.6-5.0)
[2020-06-14 09:04] LABS: BASOPHILS % (AUTO) 0 % (0-10); EOSINOPHILS # (AUTO) 0.2 10^3/uL (0.0-0.3); EOSINOPHILS % (AUTO) 4 % (0-10); HEMATOCRIT 37 % (40-54); HEMOGLOBIN 12.2 G/DL (13.3-17.7); LYMPHOCYTES # (AUTO) 0.5 X 10^3 (1.0-4.0); LYMPHOCYTES % (AUTO) 11 % (12-44); MEAN CORPUSCULAR HEMOGLOBIN 30 PG (25-34); MEAN CORPUSCULAR HGB CONC 33 G/DL (32-36); MEAN CORPUSCULAR VOLUME 91 FL (80-99); MEAN PLATELET VOLUME 9.8 FL (7.4-10.4); MONOCYTES # (AUTO) 0.3 X 10^3 (0.0-1.0); MONOCYTES % (AUTO) 7 % (0-12); NEUTROPHILS # (AUTO) 3.4 X 10^3 (1.8-7.8); NEUTROPHILS % (AUTO) 78 % (42-75); PLATELET COUNT 203 10^3/uL (130-400); WHITE BLOOD COUNT 4.3 10^3/uL (4.3-11.0)
[2020-06-14 09:22] LABS: BILIRUBIN,TOTAL 0.4 MG/DL (0.1-1.0); CALCIUM 9.5 MG/DL (8.5-10.1); CREATININE SERUM 1.69 MG/DL (0.60-1.30); POTASSIUM 4.2 MMOL/L (3.6-5.0); TOTAL PROTEIN 8.6 GM/DL (6.4-8.2)
[~2020-07-05 09:06] MED LIST changes: +ATEZOLIZUMAB 1,200 MG in NS (IVPB) CANCER CENTER 250 ML IV SCH; -GADOBUTROL 7.5 MMOL/7.5 ML (GADAVIST) VIAL IV ONE; +NS IV 1000 ML (CANCER CTR) 1,000 ML IV SCH
[2020-07-05 09:37] LABS: BASOPHILS % (AUTO) 0 % (0-10); EOSINOPHILS # (AUTO) 0.1 10^3/uL (0.0-0.3); EOSINOPHILS % (AUTO) 3 % (0-10); HEMATOCRIT 35 % (40-54); HEMOGLOBIN 11.7 g/dL (13.3-17.7); LYMPHOCYTES # (AUTO) 0.2 10^3/uL (1.0-4.0); LYMPHOCYTES % (AUTO) 6 % (12-44); MEAN CORPUSCULAR HEMOGLOBIN 30 pg (25-34); MEAN CORPUSCULAR HGB CONC 34 g/dL (32-36); MEAN CORPUSCULAR VOLUME 91 fL (80-99); MEAN PLATELET VOLUME 9.8 fL (9.0-12.2); MONOCYTES # (AUTO) 0.5 10^3/uL (0.0-1.0); MONOCYTES % (AUTO) 12 % (0-12); NEUTROPHILS % (AUTO) 78 % (42-75); PLATELET COUNT 182 10^3/uL (130-400); WHITE BLOOD COUNT 3.8 10^3/uL (4.3-11.0)
[2020-07-05 10:00] LABS: ALBUMIN 3.9 GM/DL (3.2-4.5); BILIRUBIN,TOTAL 0.5 MG/DL (0.1-1.0); CALCIUM 9.6 MG/DL (8.5-10.1); CREATININE SERUM 1.77 MG/DL (0.60-1.30); POTASSIUM 3.7 MMOL/L (3.6-5.0)
== END 2020-07-21 | disposition home or self-care (01) ==
LOC: ONC 09:06
PROVIDERS: ATTEND Internal Medicine Hematology & Oncology
DX: Z51.11 Encounter for antineoplastic chemotherapy (principal); C7A.8 Other malignant neuroendocrine tumors; C7B.8 Other secondary neuroendocrine tumors; C61 Malignant neoplasm of prostate; C79.51 Secondary malignant neoplasm of bone; I67.82 Cerebral ischemia; G93.89 Other specified disorders of brain; Z79.899 Other long term (current) drug therapy; Z95.5 Presence of coronary angioplasty implant and graft
CPT/HCPCS: 36591; 77290; 77295; 77300; 77307; 77334; 77336; 77402; 77417; 77470; 80053; 84443; 85025; 96360; 96413; 99212; 99215

== ENCOUNTER → 2020-07-06 | Outpatient (CLI) | payer MEDICARE, OTHER ==
[~2020-07-06] MED LIST changes: -ATEZOLIZUMAB 1,200 MG in NS (IVPB) CANCER CENTER 250 ML IV SCH; -NS IV 1000 ML (CANCER CTR) 1,000 ML IV SCH
== END ==
LOC: WOUNDCARE 09:28
PROVIDERS: ATTEND Surgery
DX: I96 Gangrene, not elsewhere classified (principal); L97.511 Non-pressure chronic ulcer of other part of right foot limited to breakdown of skin; B35.3 Tinea pedis; C79.31 Secondary malignant neoplasm of brain; C80.1 Malignant (primary) neoplasm, unspecified
CPT/HCPCS: A6196; G0463; 99214

== ENCOUNTER → 2020-07-13 | Outpatient (CLI) | payer MEDICARE, OTHER | LOC: WOUNDCARE 09:16 | PROVIDERS: ATTEND Surgery | DX: I96 Gangrene, not elsewhere classified (principal); L97.511 Non-pressure chronic ulcer of other part of right foot limited to breakdown of skin; C79.31 Secondary malignant neoplasm of brain; B35.3 Tinea pedis | CPT/HCPCS: 99212 ==

== ENCOUNTER → 2020-07-20 | Outpatient (CLI) | payer MEDICARE, OTHER | LOC: WOUNDCARE 14:28 | PROVIDERS: ATTEND Surgery | DX: L97.511 Non-pressure chronic ulcer of other part of right foot limited to breakdown of skin (principal); B35.3 Tinea pedis; C79.31 Secondary malignant neoplasm of brain; C80.1 Malignant (primary) neoplasm, unspecified | CPT/HCPCS: 99212 ==

== ENCOUNTER 2020-08-17 14:55 | Outpatient (RCR) | payer MEDICARE, OTHER ==
[2020-07-27 09:11] LABS: BASOPHILS % (AUTO) 0 % (0-10); EOSINOPHILS # (AUTO) 0.1 10^3/uL (0.0-0.3); EOSINOPHILS % (AUTO) 2 % (0-10); HEMATOCRIT 34 % (40-54); HEMOGLOBIN 11.2 g/dL (13.3-17.7); LYMPHOCYTES # (AUTO) 0.3 10^3/uL (1.0-4.0); LYMPHOCYTES % (AUTO) 9 % (12-44); MEAN CORPUSCULAR HEMOGLOBIN 31 pg (25-34); MEAN CORPUSCULAR HGB CONC 33 g/dL (32-36); MEAN CORPUSCULAR VOLUME 92 fL (80-99); MEAN PLATELET VOLUME 9.5 fL (9.0-12.2); MONOCYTES # (AUTO) 0.3 10^3/uL (0.0-1.0); MONOCYTES % (AUTO) 9 % (0-12); NEUTROPHILS % (AUTO) 78 % (42-75); PLATELET COUNT 175 10^3/uL (130-400); WHITE BLOOD COUNT 3.8 10^3/uL (4.3-11.0)
[2020-07-27 09:34] LABS: ALBUMIN 3.7 GM/DL (3.2-4.5); BILIRUBIN,TOTAL 0.5 MG/DL (0.1-1.0); CALCIUM 9.1 MG/DL (8.5-10.1); CREATININE SERUM 1.73 MG/DL (0.60-1.30); POTASSIUM 3.7 MMOL/L (3.6-5.0); TOTAL PROTEIN 7.4 GM/DL (6.4-8.2)
[2020-08-11 15:22] LABS: BASOPHILS % (AUTO) 0 % (0-10); EOSINOPHILS % (AUTO) 0 % (0-10); HEMATOCRIT 36 % (40-54); HEMOGLOBIN 11.9 g/dL (13.3-17.7); LYMPHOCYTES # (AUTO) 0.4 10^3/uL (1.0-4.0); LYMPHOCYTES % (AUTO) 9 % (12-44); MEAN CORPUSCULAR HEMOGLOBIN 31 pg (25-34); MEAN CORPUSCULAR HGB CONC 33 g/dL (32-36); MEAN CORPUSCULAR VOLUME 93 fL (80-99); MEAN PLATELET VOLUME 9.5 fL (9.0-12.2); MONOCYTES # (AUTO) 0.6 10^3/uL (0.0-1.0); MONOCYTES % (AUTO) 11 % (0-12); NEUTROPHILS # (AUTO) 3.9 10^3/uL (1.8-7.8); NEUTROPHILS % (AUTO) 79 % (42-75); PLATELET COUNT 195 10^3/uL (130-400); WHITE BLOOD COUNT 4.9 10^3/uL (4.3-11.0)
[2020-08-11 15:41] LABS: BILIRUBIN,TOTAL 0.6 MG/DL (0.1-1.0); CALCIUM 9.1 MG/DL (8.5-10.1); CREATININE SERUM 1.61 MG/DL (0.60-1.30); POTASSIUM 3.6 MMOL/L (3.6-5.0); TOTAL PROTEIN 7.9 GM/DL (6.4-8.2)
[~2020-08-17] VITALS: Ht 175.3 cm; Wt 80.3 kg
[~2020-08-17 14:55] MED LIST changes: +NIVOLUMAB 240 MG in NS (IVPB) CANCER CENTER 100 ML IV SCH
[2020-08-17] MEDS ORDERED: NS IV 500 ML (CANCER CENTER) 500 ML ONE (15:06)
[2020-08-17 15:21] LABS: BASOPHILS % (AUTO) 0 % (0-10); EOSINOPHILS % (AUTO) 1 % (0-10); HEMATOCRIT 36 % (40-54); HEMOGLOBIN 11.9 g/dL (13.3-17.7); LYMPHOCYTES # (AUTO) 0.4 10^3/uL (1.0-4.0); LYMPHOCYTES % (AUTO) 8 % (12-44); MEAN CORPUSCULAR HEMOGLOBIN 31 pg (25-34); MEAN CORPUSCULAR HGB CONC 33 g/dL (32-36); MEAN CORPUSCULAR VOLUME 94 fL (80-99); MEAN PLATELET VOLUME 9.5 fL (9.0-12.2); MONOCYTES # (AUTO) 0.5 10^3/uL (0.0-1.0); MONOCYTES % (AUTO) 9 % (0-12); NEUTROPHILS # (AUTO) 4.5 10^3/uL (1.8-7.8); NEUTROPHILS % (AUTO) 82 % (42-75); PLATELET COUNT 200 10^3/uL (130-400); WHITE BLOOD COUNT 5.5 10^3/uL (4.3-11.0)
[2020-08-17 15:40] LABS: ALBUMIN 3.8 GM/DL (3.2-4.5); BILIRUBIN,TOTAL 0.7 MG/DL (0.1-1.0); CALCIUM 8.6 MG/DL (8.5-10.1); CREATININE SERUM 1.49 MG/DL (0.60-1.30); POTASSIUM 3.4 MMOL/L (3.6-5.0); TOTAL PROTEIN 7.3 GM/DL (6.4-8.2)
[2020-08-30] MEDS ORDERED: NS IV 500 ML (CANCER CENTER) 500 ML IV SCH (08:15)
== END 2020-10-25 | disposition home or self-care (01) ==
LOC: ONC 14:55
PROVIDERS: ATTEND Internal Medicine Hematology & Oncology
DX: C7A.8 Other malignant neuroendocrine tumors (principal); C7B.8 Other secondary neuroendocrine tumors; C61 Malignant neoplasm of prostate; C34.82 Malignant neoplasm of overlapping sites of left bronchus and lung; C79.51 Secondary malignant neoplasm of bone; I67.82 Cerebral ischemia; G93.89 Other specified disorders of brain; Z79.899 Other long term (current) drug therapy; Z95.5 Presence of coronary angioplasty implant and graft; N18.4 Chronic kidney disease, stage 4 (severe)
CPT/HCPCS: 36591; 80053; 84443; 85025; 96360; 96413

== ENCOUNTER 2020-08-26 13:46 | Emergency (ER) | payer OTHER ==
[~2020-08-26] VITALS: Ht 172 cm; Wt 72.0 kg
[~2020-08-26 13:46] MED LIST changes: -NIVOLUMAB 240 MG in NS (IVPB) CANCER CENTER 100 ML IV SCH
[2020-08-26 13:48] VITALS: BP 135/81
--- NOTE | 2020-08-26 13:54 | ED General ---
General Stated Complaint: NOT EATING/DRINKING Source of Information: Patient, EMS Exam Limitations: No Limitations History of Present Illness Date Seen by Provider: Aug 26, 2020 Time Seen by Provider: 13:54 Initial Comments To ER by EMS from home with reports of not eating or drinking for 2 to 3 days, only had a half a banana yesterday and refuses to drink any Pedialyte. No fevers no chills no cough no shortness of breath no pain. He lives at home with his . 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 Also has a history of hypertension hyperlipidemia and coronary artery disease. Most recent treatment was with Opdivo about a week ago. Oncology is Dr. Garza. has had talks with hospice but they have not signed him up for anything yet because he is still undergoing treatment. On arrival, the patient states that he is not real sure why he is here, he states he feels pretty good. Timing/Duration: 2-3 Days Severity: Moderate Associated Systoms: Denies Symptoms; No Headaches, No Nausea/Vomiting Allergies and Home Medications Allergies Coded Allergies: Beta-Blockers (Beta-Adrenergic Bloc (Verified Allergy, Unknown, 04/29/19) Home Medications Amoxicillin/Potassium Clav 1 Each Tablet, 1 EACH PO Q12H Prescribed by: TENZIN CARTY on 06/05/19 1314 Apixaban 5 Mg Tablet, 5 MG PO BID Prescribed by: TENZIN CARTY on 04/23/19 1049 Diltiazem HCl 120 Mg Cap.er.24h, 120 MG PO DAILY Prescribed by: TENZIN CARTY on 04/23/19 1049 Levothyroxine Sodium 88 Mcg Tablet, 88 MCG PO DAILY@0630 Prescribed by: TENZIN CARTY on 04/23/19 1049 Losartan Potassium 100 Mg Tablet, 100 MG PO DAILY, (Reported) Morphine Sulfate 15 Mg Tablet, 15 MG PO Q4H, (Reported) Pantoprazole Sodium 20 Mg Tablet.dr, 20 MG PO DAILY PRN for HEARTBURN, (Reported) Polyethylene Glycol 3350 17 Gm Powd.pack, 17 GM PO DAILY PRN for CONSTIPATION- 2ND LINE, (Reported) [Ducosate/Sennoside] , 50 MG PO BID PRN for CONSTIPATION-1ST LINE, (Reported) Patient Home Medication List Home Medication List Reviewed: Yes Review of Systems Review of Systems Constitutional: see HPI EENTM: see HPI Respiratory: no symptoms reported Cardiovascular: no symptoms reported Genitourinary: no symptoms reported Musculoskeletal: no symptoms reported Skin: no symptoms reported Psychiatric/Neurological: No Symptoms Reported Hematologic/Lymphatic: No Symptoms Reported Immunological/Allergic: no symptoms reported Past Aroihuk-Pchezm-Wulnhx Hx Patient Social History 2nd Hand Smoke Exposure: No Recent Hopitalizations: No Immunizations Up To Date Tetanus Booster (TDap): Unknown Date of Pneumonia Vaccine: Oct 01, 2017 Date of Influenza Vaccine: Jul 15, 2018 Seasonal Allergies Seasonal Allergies: No Past Medical History Surgeries: Yes (EYELID, CYST REMOVED FROM JAWBONE, RIGHT CTR, BILAT KNEE, loop recorder) Coronary Stent, Eye Surgery Respiratory: No Cardiac: Yes (REVEAL RECORDER PLACED IN 2015, STENT 2010) Atrial Fibrillation, Coronary Artery Disease, Heart Attack, High Cholesterol, Hypertension Neurological: No Reproductive Disorders: No Sexually Transmitted Disease: No HIV/AIDS: No Genitourinary: No Prostate Problems Gastrointestinal: Yes Gastroesophageal Reflux, Chronic Constipation Musculoskeletal: Yes (ELBOWS AND KNEES) Arthritis Endocrine: No HEENT: Yes Cataract Loss of Vision: Bilateral Hearing Impairment: Hard of Hearing, Bilateral Hearing Aide 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 0.6oz. 86.479172bn; 27.3 BMI Method:Estimated General Appearance: No Apparent Distress, WD/WN, Chronically ill, Other (Alert, pleasant no distress) Eyes: Bilateral Eye Normal Inspection, Bilateral Eye PERRL Neck: Full Range of Motion, Normal Inspection Respiratory: Normal Breath Sounds, No Accessory Muscle Use, No Respiratory Distress Cardiovascular: Regular Rate, Rhythm, Normal Peripheral Pulses Gastrointestinal: Normal Bowel Sounds, Non Tender, Soft Extremity: Normal Capillary Refill, Normal Inspection Neurologic/Psychiatric: Alert, Oriented x3 Skin: Normal Color, Warm/Dry Progress/Results/Core Measures Suspected Sepsis SIRS Temperature: Pulse: Respiratory Rate: Laboratory Tests 08/26/20 13:55: White Blood Count 5.9 Blood Pressure / Mean: Laboratory Tests 08/26/20 13:55: Creatinine 1.60H, Platelet Count 195, Total Bilirubin 0.9 Results/Orders Lab Results Laboratory Tests Test 08/26/20 13:55 08/26/20 15:05 Range/Units White Blood Count 5.9 4.3-11.0 10^3/uL Red Blood Count 3.88 L 4.30-5.52 10^6/uL Hemoglobin 12.0 L 13.3-17.7 g/dL Hematocrit 37 L 40-54 % Mean Corpuscular Volume 95 80-99 fL Mean Corpuscular Hemoglobin 31 25-34 pg Mean Corpuscular Hemoglobin Concent 33 32-36 g/dL Red Cell Distribution Width 14.0 10.0-14.5 % Platelet Count 195 130-400 10^3/uL Mean Platelet Volume 9.6 9.0-12.2 fL Immature Granulocyte % (Auto) 0 % Neutrophils (%) (Auto) 80 H 42-75 % Lymphocytes (%) (Auto) 10 L 12-44 % Monocytes (%) (Auto) 9 0-12 % Eosinophils (%) (Auto) 1 0-10 % Basophils (%) (Auto) 0 0-10 % Neutrophils # (Auto) 4.7 1.8-7.8 10^3/uL Lymphocytes # (Auto) 0.6 L 1.0-4.0 10^3/uL Monocytes # (Auto) 0.5 0.0-1.0 10^3/uL Eosinophils # (Auto) 0.1 0.0-0.3 10^3/uL Basophils # (Auto) 0.0 0.0-0.1 10^3/uL Immature Granulocyte # (Auto) 0.0 0.0-0.1 10^3/uL Sodium Level 144 135-145 MMOL/L Potassium Level 3.5 L 3.6-5.0 MMOL/L Chloride Level 108 H 98-107 MMOL/L Carbon Dioxide Level 22 21-32 MMOL/L Anion Gap 14 5-14 MMOL/L Blood Urea Nitrogen 25 H 7-18 MG/DL Creatinine 1.60 H 0.60-1.30 MG/DL Estimat Glomerular Filtration Rate 42 BUN/Creatinine Ratio 16 Glucose Level 103 70-105 MG/DL Calcium Level 8.9 8.5-10.1 MG/DL Corrected Calcium 8.9 8.5-10.1 MG/DL Total Bilirubin 0.9 0.1-1.0 MG/DL Aspartate Amino Transf (AST/SGOT) 27 5-34 U/L Alanine Aminotransferase (ALT/SGPT) 21 0-55 U/L Alkaline Phosphatase 76 40-136 U/L Total Protein 7.6 6.4-8.2 GM/DL Albumin 4.0 3.2-4.5 GM/DL Urine Color YELLOW Urine Clarity CLEAR Urine pH 6.0 5-9 Urine Specific [place] 1.025 H 1.016-1.022 Urine Protein 2+ H NEGATIVE Urine Glucose (UA) NEGATIVE NEGATIVE Urine Ketones 1+ H NEGATIVE Urine Nitrite NEGATIVE NEGATIVE Urine Bilirubin NEGATIVE NEGATIVE Urine Urobilinogen 0.2 < = 1.0 MG/DL Urine Leukocyte Esterase NEGATIVE NEGATIVE Urine RBC (Auto) NEGATIVE NEGATIVE Urine RBC RARE /HPF Urine WBC 0-2 /HPF Urine Crystals NONE /LPF Urine Bacteria NEGATIVE /HPF Urine Casts PRESENT /LPF Urine Hyaline Casts 5-10 H /LPF Urine Mucus SMALL H /LPF Urine Culture Indicated NO My Orders Orders - CARIDAD REDDING APRN Cbc With Automated Diff (08/26/20 13:52) Comprehensive Metabolic Panel (08/26/20 13:52) Ua Culture If Indicated (08/26/20 13:52) Chest 1 View, Ap/Pa Only (08/26/20 13:52) Ed Iv/Invasive Line Start (08/26/20 13:52) Lactated Ringers (Lr 1000 Ml Iv Solution (08/26/20 14:00) Vital Signs/I&O 08/26/20 13:48 Temp 36.5 Pulse 72 Resp 18 B/P (MAP) 135/81 (99) Pulse Ox 97 O2 Delivery Room Air Capillary Refill : Diagnostic Imaging Diagonstic Imaging: Xray Comments NAME: ANDRES VAUGHAN MED REC#: [id number] PT STATUS: REG ER : 1945 PHYSICIAN: CARIDAD REDDING APRN ADMIT DATE: 08/26/20/ER Signed Date of Exam:08/26/20 CHEST 1 VIEW, AP/PA ONLY HISTORY: Appetite changes COMPARISON: 06/05/2019 TECHNIQUE: Frontal view of the chest FINDINGS: Lung volumes are normal. No focal consolidation is seen. There is no pleural effusion or pneumothorax. The left-sided Port-A-Cath tip projects over the SVC. A ekg monitor is noted. The cardiac silhouette is normal in size. IMPRESSION: 1. No acute pulmonary abnormality. Dictated by: Dictated on workstation # [id number] Dict: 08/26/20 1427 Trans: 08/26/20 1430 [facility] [id number] Interpreted by: JULES ZUNIGA MD Electronically signed by: JULES ZUNIGA MD 08/26/20 1430 Departure Impression Primary Impression: Metastatic cancer to bone Additional Impression: Dehydration Disposition: 01 HOME, SELF-CARE Condition: Stable Departure-Patient Inst. Decision time for Depature: 15:39 Referrals: TENZIN CARTY MD (PCP/Family) Primary Care Physician Patient Instructions: Stages of Cancer Add. Discharge Instructions: 1. Follow-up with Dr. Garza next week and ask her thoughts on transitioning to [facility]. Return to ER for any worsening symptoms or other concerns. CARIDAD REDDING APRN Aug 26, 2020 13:54
[2020-08-26] MEDS ORDERED: LACTATED RINGERS 1,000 ML IV SCH (14:00)
[2020-08-26 14:06] LABS: BASOPHILS % (AUTO) 0 % (0-10); EOSINOPHILS # (AUTO) 0.1 10^3/uL (0.0-0.3); EOSINOPHILS % (AUTO) 1 % (0-10); HEMATOCRIT 37 % (40-54); LYMPHOCYTES # (AUTO) 0.6 10^3/uL (1.0-4.0); LYMPHOCYTES % (AUTO) 10 % (12-44); MEAN CORPUSCULAR HEMOGLOBIN 31 pg (25-34); MEAN CORPUSCULAR HGB CONC 33 g/dL (32-36); MEAN CORPUSCULAR VOLUME 95 fL (80-99); MEAN PLATELET VOLUME 9.6 fL (9.0-12.2); MONOCYTES # (AUTO) 0.5 10^3/uL (0.0-1.0); MONOCYTES % (AUTO) 9 % (0-12); NEUTROPHILS # (AUTO) 4.7 10^3/uL (1.8-7.8); NEUTROPHILS % (AUTO) 80 % (42-75); PLATELET COUNT 195 10^3/uL (130-400); WHITE BLOOD COUNT 5.9 10^3/uL (4.3-11.0)
[2020-08-26 14:22] LABS: POTASSIUM 3.5 MMOL/L (3.6-5.0)
[2020-08-26 14:23] LABS: CALCIUM 8.9 MG/DL (8.5-10.1)
[2020-08-26 14:24] LABS: TOTAL PROTEIN 7.6 GM/DL (6.4-8.2)
[2020-08-26 14:26] LABS: BILIRUBIN,TOTAL 0.9 MG/DL (0.1-1.0)
[2020-08-26 14:28] LABS: CREATININE SERUM 1.6 MG/DL (0.60-1.30)
--- NOTE | 2020-08-26 14:29 | Diagnostic Imaging Report ---
HISTORY: Appetite changes COMPARISON: 06/05/2019 TECHNIQUE: Frontal view of the chest FINDINGS: Lung volumes are normal. No focal consolidation is seen. There is no pleural effusion or pneumothorax. The left-sided Port-A-Cath tip projects over the SVC. A property assessment monitor is noted. The cardiac silhouette is normal in size. IMPRESSION: 1. No acute pulmonary abnormality. Dictated by: Dictated on workstation # [id number]
[2020-08-26 15:14] LABS: BILIRUBIN,URINE NEGATIVE (NEGATIVE); CLARITY,URINE CLEAR; COLOR,URINE YELLOW; GLUCOSE, URINE (UA) NEGATIVE (NEGATIVE); KETONES,URINE 1+ (NEGATIVE); LEUKOCYTE ESTERASE ,URINE NEGATIVE (NEGATIVE); NITRITE,URINE NEGATIVE (NEGATIVE); PROTEIN,URINE 2+ (NEGATIVE)
[2020-08-26 15:29] LABS: RBC,URINE RARE /HPF; WBC,URINE 0-2 /HPF
[2020-08-26 15:30] LABS: BACTERIA,URINE NEGATIVE /HPF
== END 2020-08-26 16:22 | disposition home or self-care (01) ==
LOC: EDUNIT# 13:46 → ER 13:47
DX: C79.51 Secondary malignant neoplasm of bone (principal); E86.0 Dehydration; I25.2 Old myocardial infarction; I48.91 Unspecified atrial fibrillation; K21.9 Gastro-esophageal reflux disease without esophagitis; I10 Essential (primary) hypertension; Z80.3 Family history of malignant neoplasm of breast; Z85.46 Personal history of malignant neoplasm of prostate; Z88.8 Allergy status to other drugs, medicaments and biological substances; Z95.5 Presence of coronary angioplasty implant and graft; Z79.01 Long term (current) use of anticoagulants
CPT/HCPCS: 36415; 71045; 80053; 81000; 85025